=== PATIENT | female | born 1980 | race Caucasian/White ===

== ENCOUNTER → 2018-03-07 14:36 | Outpatient (REF) | payer OTHER, SELFPAY ==
[2018-03-07 18:43] LABS: Mean Corp. HGB Concentration 33.3 g/dL (32.0-36.0); Mean Corpuscular Hemoglobin 30.6 pg (27.0-33.0); Mean Corpuscular Volume 91.8 fL (80-95); Platelet Count 206 x1000/uL (130-400); RBC 4.25 m/cumm (4.00-5.20); RBC Distribution Width 12.2 % (11.7-14.6); White Blood Cell Count 7.81 k/cumm (4.4-10.8)
[2018-03-07 19:08] LABS: TSH (W/Ref FT4) 1.28 uIU/mL (0.358-3.74)
[2018-03-07 19:21] LABS: Vitamin D 25 Total 40.7 ng/ml (30-100)
[2018-03-09 11:27] LABS: IgA 197 mg/dL (85-499)
[2018-03-09 18:54] LABS: Tissue Transglutaminase Ab IgA <1.2 U/mL
== END ==
LOC: NCHCN 14:36
PROVIDERS: PCP Family Medicine; Visit Provider Family Medicine
DX: D64.9 Anemia, unspecified (principal); R21 Rash and other nonspecific skin eruption
CPT/HCPCS: 82306; 82784; 85027; 83516; 84443

== ENCOUNTER 2019-05-05 13:33 | Outpatient (CLI) | payer OTHER, SELFPAY ==
[2019-05-05 14:50] LABS: Abs Immature Grans 0.01 k/cumm (0.0-0.09); Absolute Basophil Count 0.03 k/cumm (0.0-0.2); Absolute Eosinophil Count 0.04 k/cumm (0.0-0.7); Absolute Lymphocyte Count 1.36 k/cumm (1.2-3.4); Absolute Monocyte Count 0.44 k/cumm (0.11-0.7); Absolute Neutrophil Count 5.11 k/cumm (1.2-6.7); Basophils % 0.4; Eosinophils % 0.6; HCT 38.2 % (36.0-46.0); HGB 12.8 g/dL (12.0-15.5); Immature Grans % 0.1; Lymphocytes % 19.5; Mean Corp. HGB Concentration 33.5 g/dL (32.0-36.0); Mean Corpuscular Hemoglobin 30.4 pg (27.0-33.0); Mean Corpuscular Volume 90.7 fL (80-95); Mean Platelet Volume 10.9 fL (8.0-11.0); Monocytes % 6.3; Neutrophils % 73.1; Platelet Count 186 x1000/uL (130-400); RBC 4.21 m/cumm (4.00-5.20); RBC Distribution Width 12.2 % (11.7-14.6); White Blood Cell Count 6.99 k/cumm (4.4-10.8)
--- NOTE | 2019-05-05 15:00 | DI.US_ITS ---
EXAM: US THYROID CLINICAL HISTORY: SUBCUTANEOUS MASS OF NECK R22.1. TECHNIQUE: Ultrasound performed using standard protocol. COMPARISON: US SOFT TISSUE HEAD OR NECK from 05/05/2019 FINDINGS: Thyroid ultrasounds performed according to the usual protocol. Right thyroid lobe measures 50 x 15 x 12 millimeters. Left thyroid lobe measures 43 x 12 x 16 millimeters. Thyroid parenchyma is heterog eneous and there are multiple nodules seen bilaterally. There is hyperemic 13 millimeter in diameter heterogeneous nodule of the upper pole of the left thyroid lobe, this is increased slightly since th e examination June 2016 when it measured 11 millimeters in greatest diameter. No other suspiciou s nodule seen although multiple cysts cysts are noted in the right thyroid lobe. Patient also had neck scanning for question palpable abnormality of the left cervical region, there i s visible lymph node at this site measuring about 15 millimeters in diameter with normal doreen anatom y. IMPRESSION: No gross interval change in dominant left upper lobe thyroid mass Palpable abnormality of the left lateral cervical region is consistent with a normal cervical lymph n ode.
--- NOTE | 2019-05-05 16:25 | DI.VRAD_ITS ---
PROCEDURE INFORMATION: Exam: US Soft Tissue Head and Neck, Soft Tissue Exam date and time: 05/05/2019 3:42 PM Clinical history: 38 years old, female; Patient HX: Left sided neck pain x 1 day. TECHNIQUE: Imaging protocol: Real-time ultrasound scan of the head and neck with image documentation. Exam focused on the soft tissue in the region of clinical concern. COMPARISON: US THYROID ULTRASOUND 07/10/2016 3:37 PM FINDINGS: Right thyroid lobe: Right lobe of the thyroid 5 x 1.5 x 1.24 cm Multiple nodules in the right lobe of the thyroid. All less than 1 cm in diameter Left thyroid lobe: Left lobe of the thyroid 4.3 x 1.25 1.6 cm Dominant nodule: Hyperemic nodule upper pole left thyroid is mostly solid with 1 cystic component. 1.3 x 7.2 x 10 mm. Isthmus: Isthmus 2.6 mm Lymph nodes: Lymph node in the area of the palpable abnormality measures 15 x 6 x 9 mm. Additional lymph nodes noted on the left. Soft tissues: Unremarkable. No fluid collections. IMPRESSION: 1. Dominant nodule: Hyperemic nodule upper pole left thyroid is mostly solid with 1 cystic component. 1.3 x 7.2 x 10 mm. 2. Lymph node in the area of the palpable abnormality measures 15 x 6 x 9 mm. Additional lymph nodes noted on the left. Dictated and Authenticated by: Tammy Edwards MD. Ordering:JIMMIE Richardson MD
[2019-05-05 16:59] LABS: FREE T4 1.13 ng/dL (0.76-1.46); TSH 1.18 uIU/mL (0.36-3.74)
== END 2019-05-05 13:53 ==
PROVIDERS: PCP Family Medicine; Visit Provider Family Medicine
DX: R22.1 Localized swelling, mass and lump, neck (principal); E04.1 Nontoxic single thyroid nodule; R59.0 Localized enlarged lymph nodes
CPT/HCPCS: 36415; 76536; 84439; 84443; 85025

== ENCOUNTER 2019-07-04 08:14 | Outpatient (CLI) | payer OTHER, SELFPAY ==
[2019-07-04 08:47] LABS: Absolute Basophil Count 0.02 k/cumm (0.0-0.2); Absolute Eosinophil Count 0.09 k/cumm (0.0-0.7); Absolute Lymphocyte Count 1.44 k/cumm (1.2-3.4); Absolute Monocyte Count 0.36 k/cumm (0.11-0.7); Absolute Neutrophil Count 2.48 k/cumm (1.2-6.7); Basophils % 0.5; Eosinophils % 2.1; HCT 39.9 % (36.0-46.0); HGB 13.2 g/dL (12.0-15.5); Lymphocytes % 32.8; Mean Corp. HGB Concentration 33.1 g/dL (32.0-36.0); Mean Corpuscular Hemoglobin 30.2 pg (27.0-33.0); Mean Corpuscular Volume 91.3 fL (80-95); Mean Platelet Volume 11.8 fL (8.0-11.0); Monocytes % 8.2; Neutrophils % 56.4; Platelet Count 182 x1000/uL (130-400); RBC 4.37 m/cumm (4.00-5.20); RBC Distribution Width 12.4 % (11.7-14.6); White Blood Cell Count 4.39 k/cumm (4.4-10.8)
[2019-07-04 11:29] LABS: Anion Gap 10.4 mmol/L (3-11); BUN 12 mg/dL (7-18); CO2 26.6 mmol/L (21.0-32.0); CREATININE 0.66 mg/dL (0.55-1.02); Calcium 8.7 mg/dL (8.5-10.1); Chloride 105 mmol/L (98-107); Glucose 75 mg/dL (74-106); Potassium 4.1 mmol/L (3.5-5.1); Sodium 142 mmol/L (136-145)
== END 2019-07-04 08:34 ==
PROVIDERS: PCP Family Medicine; Visit Provider Family Medicine
DX: R53.83 Other fatigue (principal)
CPT/HCPCS: 36415; 80048; 82533; 84443; 85025

== ENCOUNTER 2020-01-02 15:53 | Outpatient (REF) | payer OTHER, SELFPAY ==
[2020-01-04 10:20] LABS: COVID-19 RT-PCR UVMMC Result Negative (Negative)
== END 2020-01-02 16:13 ==
LOC: NCHCN 15:53
PROVIDERS: PCP Family Medicine; Visit Provider Nurse Practitioner Family
DX: R06.02 Shortness of breath (principal)
CPT/HCPCS: U0003

== ENCOUNTER 2020-01-04 01:32 | Outpatient (CLI) | payer OTHER, SELFPAY ==
--- NOTE | 2020-01-04 09:30 | DI.RAD_ITS ---
EXAM: XR CHEST 2V PA LATERAL CLINICAL HISTORY: SOB,R06.02 TECHNIQUE: 2D digital imaging was performed. COMPARISON: No exams were available for comparison FINDINGS: MEDIASTINUM: Normal. HEART: Normal. PULMONARY VASCULATURE: Normal. LUNGS: Clear. PLEURAL SPACE: No pleural effusion or pneumothorax. BONE:Normal. OTHER FINDINGS:Normal. IMPRESSION: No acute pulmonary findings. DATA REPOSITORY: RADIATION DOSE DELIVERED:
== END 2020-01-04 01:52 ==
PROVIDERS: PCP Family Medicine; Visit Provider Nurse Practitioner Family
DX: R06.02 Shortness of breath (principal)
CPT/HCPCS: 71046

== ENCOUNTER 2020-09-16 18:40 | Outpatient (REF) | payer OTHER, SELFPAY ==
[2020-09-16 21:36] LABS: HCT 41.3 % (36.0-46.0); HGB 13.7 g/dL (11.2-15.7); MCH 30.6 pg (27.0-33.0); MCHC 33.2 % (32.0-36.0); MCV 92.4 fL (80-95); MPV 11.9 fL (8.0-11.0); Platelet Count 187 10^3/uL (130-400); RBC 4.47 10^6/uL (3.93-5.22); RDW 11.4 % (11.7-14.6); WBC 9.17 10^3/uL (4.4-10.8)
[2020-09-16 21:55] LABS: Anion Gap 10.3 mmol/L (3-11); BUN 15 mg/dL (7-18); CO2 26.7 mmol/L (21.0-32.0); CREATININE 0.6 mg/dL (0.55-1.02); Calcium 8.7 mg/dL (8.5-10.1); Chloride 105 mmol/L (98-107); Glucose 82 mg/dL (74-106); Sodium 142 mmol/L (136-145); TSH (W/Ref FT4) 1.36 uIU/mL (0.36-3.74)
== END 2020-09-16 18:41 | disposition home or self-care (01) ==
LOC: NCHCN 18:40
PROVIDERS: PCP Family Medicine; Visit Provider Nurse Practitioner Family
DX: R00.2 Palpitations (principal)
CPT/HCPCS: 80048; 85027; 84443

== ENCOUNTER 2020-09-18 03:12 | Outpatient (RCR) | payer OTHER, SELFPAY ==
--- NOTE | 2020-09-18 14:15 | HOLTER_ITS ---
APPROVED REPORT Exam Type: HOLTER MONITOR APPLICATION Reason for Test: PALPITATIONS Patient Location: O Conclusion This is a 48-hour Holter monitor ordered for the indication of palpitations. The patient was in normal sinus rhythm for the majority of the recording with an average heart rate o f 71 bpm. Patient no episodes of SVT and rare PACs. The patient had one episode of NSVT that lasted 6 beats at a rate of 186 bpm. There were rare PVCs. There were no episodes of atrial fibrillation, no pauses greater than 3 seconds and no evidence of hi gh degree heart block. There were 3 patient diary events associated with sinus rhythm, a PAC, and a PVC.
== END 2020-09-22 23:59 | disposition home or self-care (01) ==
LOC: RT 03:12
PROVIDERS: PCP Family Medicine; Visit Provider Nurse Practitioner Family
DX: R00.2 Palpitations (principal)
CPT/HCPCS: 93225; 93226

== ENCOUNTER 2020-10-21 17:47 | Outpatient (REF) | payer OTHER, SELFPAY ==
--- NOTE | 2020-10-21 13:30 | PAPFT_PTH ---
PATIENT: Maris Owen [id number] AGE/SX: 40/F ROOM: RE10/21/[address]: Debra Rocha : 1980 BED: DIS: 10/21/2020 SPEC #: [id number] RECD: 10/21/20 18:11 STATUS: ALEXANDRA REMargarito #: [id number] KEZIA: 10/21/20 13:[address]: Debra Rocha DEPT: [facility] Cytology RECD BY: Flakita Gill Tissues: 1 - CX/ENDOCX FOR PAP SMEARS Procedures: PAP THIN PREP/UVM Screening HPV DNA PROBE Comments: [id number]
== END 2020-10-21 17:48 | disposition home or self-care (01) ==
LOC: NCHCN 17:47
PROVIDERS: PCP Family Medicine; Visit Provider Family Medicine
DX: Z00.00 Encounter for general adult medical examination without abnormal findings (principal); Z12.4 Encounter for screening for malignant neoplasm of cervix; Z11.51 Encounter for screening for human papillomavirus (HPV)
CPT/HCPCS: 88142; 87624

== ENCOUNTER 2020-10-29 00:47 | Outpatient (CLI) | payer OTHER, SELFPAY ==
--- NOTE | 2020-10-29 15:00 | ETT_ITS ---
APPROVED REPORT Exam: Exercise Treadmill Patient Location: Out-Patient Room/Bed: Stress Nurse: Ashley Felix RN Ordering Provider:PARISH VIGIL, Contact Number: [phone] BMI: 23.88 Baseline Rhythm: Sinus Rhythm Indications: DYSPNEA ON EXERTION, PALPITATIONS, CHEST TIGHTNESS. Medical History Medical History: None. Cardiac Medications: None. Allergies: No known drug allergies Cardiac Risk Factors: FHX of CAD Previous Cardiac Procedures: None. Pretest Chest Pain Characteristics: No chest pain Exercise History: Physically active Physical Disabilities: None. Lung Sounds: Clear to auscultation Heart Sounds: Regular Stress Test Details Test: Exercise stress testing was performed using a Marcel protocol. Rest Stress HR Resting HR Supine: 78 bpm Max Heart Rate (APMHR): 179 bpm Resting HR Standin bpm Target HR (85% APMHR): 152 bpm Max HR Achieved: 171 bpm % of APMHR: 95 Recovery HR: 94 bpm HR response to stress: Normal HR response to stress BP Resting BP Supine: 116/78 mmHg Resting BP Standin/80 mmHg Max BP: 160/72 mmHg Recovery BP: 120/76 mmHg BP response to stress: Normal blood pressure response to stress. ECG Resting ECG: Sinus Rhythm Ectopy: None. Comment: 1mm ST depression present in inferior leads Stress ECG: Sinus Tachycardia ST Change: Downsloping ST depression Lead(s): , aVF, V3-V6 Stage: [address] Deviation: 2.5 mm Arrhythmia: None Recovery ECG: Sinus Rhythm Recovery ST Change: Baseline Downsloping/Horizontal ST depression Lead(s): II, III, aVF Recovery ST Deviation: 1 mm Recovery Arrhythmia: None Clinical Reason for Termination: Target HR Achieved Stress Symptoms: None. Exercise duration: 9 min11 sec Highest Stage Reached: Stage 4: 4.2 mph at 16% grade. Exercise capacity: 10.44 METs Matson Treadmill Score: 3 Rate Pressure Product: [id number] Stress ECG Conclusion 1. The patient exercised for 9 minutes (10 METS). The patient no symptoms suggestive of ischemia. 2. The patient's blood pressure and heart rate augmented appropriately with exertion. 3. Baseline voltage criteria for LVH and minimal ST depressions make the interpretation of this study difficult. 4. The patient developed worsening horizontal and downsloping ST depressions both inferiorly and late rally. 5. Would recommend imaging study if concern for ischemia remains high. Consider coronary CT scan. Matson Treadmill Score is 3 which is Moderate risk. Stress Test Summary STAGE Time (mins) Speed (mph) Grade (%) HR BP SYMPTOMS METS Supine 78 116/78 Standing 101 122/80 1 3 1.7 10 133 126/78 4.6 2 6 2.5 12 152 144/72 7 3 9 3.4 14 169 156/70 10.2 1 min recovery 132 160/72 3 min recovery 113 140/74 6 min recovery 94 120/76
== END 2020-10-29 01:07 ==
PROVIDERS: PCP Family Medicine; Visit Provider Family Medicine
DX: R06.09 Other forms of dyspnea (principal); R00.2 Palpitations; R07.89 Other chest pain
CPT/HCPCS: 93017

== ENCOUNTER 2021-01-13 00:46 | Outpatient (CLI) | payer OTHER, SELFPAY ==
--- NOTE | 2021-01-13 14:03 | DI.US_ITS ---
APPROVED REPORT EXAM: Comprehensive 2D, Doppler, and color-flow Echocardiogram Patient Location: Out-Patient Hydraulic Miner: Edna Juarez RDCS (AE) Indications: Dyspnea on exertion Other Information Study Quality: Adequate Conclusion Normal left ventricular wall thickness and chamber size. Estimated ejection fraction is 60 to 65%. There are no segmental wall motion abnormalities Normal right ventricular size and systolic function Both atria are normal in size There is no significant valvular disease Wall motion Left Ventricle The left ventricle is normal size. The left ventricular systolic function is normal. The left ventric ular ejection fraction is within the normal range. There is normal left ventricular wall thickness. T here is normal LV segmental wall motion. There is no ventricular septal defect visualized. LVEF is 61 %. Right Ventricle The right ventricle is normal size. The right ventricular systolic function is normal. The RVSP is 26 .9 mmHg. Atria The left atrium size is normal. The right atrium size is normal. The interatrial septum is intact wit h no evidence for an atrial septal defect. Aortic Valve The aortic valve is normal in structure. Aortic valve is trileaflet. There is no aortic valvular sten osis. No aortic regurgitation is present. Mitral Valve The mitral valve is normal in structure. No evidence of mitral valve stenosis. Trace mitral regurgita tion. Tricuspid Valve The tricuspid valve is normal in structure. There is no tricuspid valve stenosis. Trace tricuspid reg urgitation. Pulmonic Valve The pulmonary valve is normal in structure. There is no pulmonic valvular stenosis. There is no pulmo amelia valvular regurgitation. Great Vessels The aortic root is normal in size. The ascending aorta is normal in size. Aortic arch is normal in ca liber. IVC is normal in size and collapses >50% with inspiration. Pericardium There is no pericardial effusion. 2D Dimensions IVSD d PLAX 0.84 cm F: 0.6-1.0 LV Vol A2C d MOD 93.6 mL LVPW d PLAX 0.85 cm F: 0.6 - 1.0 LV Vol A4C d MOD 91.9 mL LVID d PLAX 4.93 cm F: 3.8 - 5.2 LA vol/ BSA A2C s A-L 12.6 mL/m2 LVDs 3.15 cm F: 2.2 - 3.5 LA vol/ BSA A4C s A-L 25.9 mL/m2 Ao Root d 2.74 cm F: 2.7 - 3.3 LA Vol/ BSA Biplane s A-L 20.4 mL/m2 RA Area A4C 13.93 cm2 LA Area A4C s MOD 16.88 cm2 RA Vol/ BSA A4C s A-L 19.0 mL/m2 LA Area A2C s MOD 10.47 cm2 Ao Asc Diam d 2.99 cm F: 2.3 - 3.1 LV EF A4C MOD 61.2 % LV EF Teichholz 64.3 % LV EF A2C MOD 60.1 % LVEF (Riley's) 60.54 % F: 54 - 74 LV EF Biplane MOD 60.5 % LV Volume 76.05 mL F: 46 - 106 SV 58.83 mL LV Volume Index 42.96 mL/m2 F: 29 - 61 SV Index 33.24 mL/m2 LV Vol Biplane MOD 97.2 mL FS 35.15 % M-Mode TAPSE 2.80 cm (M/F) >1.7 LV Diastology MV E' medial 0.166 (>0.07 m/s) E/A Ratio 1.5 LV E/e MED 5.85 (<14) MV E Vmax 0.98 (0.4-1.3 m/s) MV E' lateral 0.159 (>0.1 m/s) MV A Vmax 0.65 (0.4-1.3 m/s) LV E/e LAT 6.10 (<14) MV E/A Ratio 1.48 MV E/E' medial 5.87 MV E/E' lateral 6.14 Aortic Valve LVOT Area 2.80 cm2 AoV Area Vmax 2.32 cm2 LVOT Vmax 1.11 m/s AoV Area/ BSA (Vmax) 1.31 cm2/m2 LVOT Mean Simón. 0.68 m/s KVNG Mean Simón. 1.93 cm2 LVOT Peak Grad 4.9 mmHg KVNG Mean Simón. Index 1.09 cm2/m2 LVOT Mean Grad 2.3 mmHg LVOT VTI 0.254 m LVOT Diam s 1.85 cm AoV Vmax 1.34 m/s Velocity Ratio 0.82 AoV Mean Simón. 0.99 m/s AoV Peak Grad 7.1 mmHg LVOT SV 70.99 mL AoV Mean Grad 4.2 mmHg AoV VTI 0.293 m AoV Area VTI 2.42 cm2 AoV Area/ BSA (VTI) 1.37 cm/m2 Mitral Valve MV DT 207 (160-240 msec) MV PHT 60 msec MV Area PHT 3.66 cm2 MV VTI 0.300 m MV Area VTI 2.36 (4.0-6.0 cm2) Pulmonary Valve PV Vmax 1.19 (0.5-1.5 m/s) RVOT Peak Gr. 2.86 mmHg PV Peak Grad 5.7 mmHg RVOT Mean Gr. 1.35 mmHg PV Mean Grad 2.8 mmHg RVOT VTI 0.163 m PV VTI 0.232 m RVOT Vmax 0.85 m/s Tricuspid Valve TR Peak Grad 23.9 mmHg TR Vmax 2.44 m/s RA Pressure 3.00 mmHg RVSP (TR) 26.9 mmHg
== END 2021-01-13 01:06 ==
PROVIDERS: PCP Family Medicine; Visit Provider Internal Medicine Cardiovascular Disease
DX: R06.00 Dyspnea, unspecified (principal)
CPT/HCPCS: 93306

== ENCOUNTER 2021-02-18 11:54 | Outpatient (REF) | payer OTHER, SELFPAY ==
--- NOTE | 2021-02-18 15:13 | SKI_PTH ---
PATIENT: Maris Owen LOC: [facility] U#:[id number] AGE/SX: 40/F ROOM: RE02/18/[address]: Emeterio Ricks : 1980 BED: DIS: 02/18/2021 SPEC #: [id number] RECD: 02/19/21 12:49 STATUS: ALEXANDRA REMargarito #: [id number] KEZIA: 02/18/21 15:[address]: Emeterio Ricks DEPT: Surgical Specimen RECD BY: Flakita Gill ENTERED: 02/19/21 12:50 SP TYPE: VERO PIMENTEL DR: Debra Rocha Tissues: 1 - SKIN BIOPSY(SHAVE/PUNCH) Procedures: SKIN LEVEL 4 SPECIAL STAIN 1 Comments: [id number]
== END 2021-02-18 11:55 | disposition home or self-care (01) ==
LOC: NCHCN 11:54
PROVIDERS: PCP Family Medicine; Visit Provider Nurse Practitioner Family
DX: L30.8 Other specified dermatitis (principal)
CPT/HCPCS: 88305; 88312

== ENCOUNTER 2021-04-21 12:11 | Emergency (ER) | payer OTHER, SELFPAY ==
--- NOTE | 2021-04-21 12:00 | RT.EKG_ITS ---
APPROVED REPORT Exam: Resting ECG Reason for Exam: stroke symptoms Patient Location: E HR:62 bpm ECG Measurements Heart Rate 62 AXIS TN 106 P 52 QRSd 90 QRS 66 QT 429 T 31 QTc 437 Conclusion Sinus rhythm...normal P axis, V-rate 60- [address] depression, inferior leads...ST <-0.07mV, II III aVF EKG shows sinus rhythm at 62, normal axis, no STEMI, nondiagnostic EKG
[2021-04-21 12:15] VITALS: BP 144/105; PULSE 71; RESP 15; TEMP 36.3; O2SAT 96
--- OUTSIDE RECORDS SUMMARY | 2021-04-21 12:17 | XMS_ITS | Continuity of Care Document ---
:1980 Author Organization [facility] Care Team Providers Name Role Phone [facility] Unavailable Unavailable Social History Combined list of available smoking, tobacco, and other social history from [facility]. Social History Response Date Comment Source Type This section is an [facility] empty social history section.
--- NOTE | 2021-04-21 12:28 | DI.CT_ITS ---
Exam(s) CT BRAIN NECK CTA EXAM: CT BRAIN NECK CTA CLINICAL HISTORY: difficulty word finding, headache. TECHNIQUE: Imaging Protocol: Axial CT angiography was performed with multi-slice acquisition and mu lti-planar and/or 3D reconstructions. CONTRAST MATERIAL: Intravenous: Omnipaque 350 Contrast volume:structured data in ml COMPARISON: No exams were available for comparison FINDINGS: CTA Neck W: Aortic arch anatomy: The aortic arch anatomy is conventional. Anterior circulation: No significant stenosis at the origin of the common carotid arteries and these vessels ascend with no rmal luminal diameters. There is no evidence of significant stenosis at the carotid bifurcations and proximal internal carotid arteries and both ICAs are patent in the upper neck-skull base. Posterior circulation: Both vertebral arteries genetic conventional fashion off of the subclavian arteries. There is no darnell nosis at the origin of the vertebral arteries nor in the subclavian arteries. Both vertebral arteries ascend in the foramen transverse area with normal and equal luminal diameters . No intraluminal thrombus nor dissection evident in these vessels and both vertebral arteries contr ibute to the formation of the basilar artery at the skull base. CTA Brain W: Anterior circulation: Both internal carotid arteries are patent in the skull base-carotid canals as well as within the cave rnous sinuses. Supraclinoid aspects of these vessels are patent. Middle cerebral arteries are paten t. Left A1 segment is patent. Right A1 segment is thin, possibly developmental. Both anterior cere bral arteries are patent. There is no evidence of aneurysm at the level of the anterior communicatin g artery. Posterior circulation: Basilar artery ascends in the midline. Distally basilar artery gives off patent superior cerebellar arteries and above this level terminates as patent posterior cerebral arteries. On the right side th ere is a posterior communicating artery which contributes to the ipsilateral posterior cerebral arter y. There is no evidence of aneurysm of the tip of the basilar artery. CT BRAIN: There is no evidence of intracranial hemorrhage, mass effect, or shift of midline structures. There are no extra-axial fluid collections. Ventricles are not enlarged or shifted. There are no ring enh ancing lesions in the brain and no abnormal meningeal enhancement. IMPRESSION: 1. Patent carotid and vertebral arteries in the neck. No significant stenosis. No dissection 2. Patent intracranial arteries as described above. 3. No ring enhancing lesions in the brain nor abnormal meningeal enhancement. RADIATION DOSE DELIVERED: 2,024.84mGy.cm Total DLP DATA REPOSITORY: All CT scans at this facility are submitted to the National Radiology Data Registry (NRDR) Dose Index Registry (DIR) with the [employer] (A[employer]). RADIATION OPTIMIZATION: All CT scans at this facility use at least one of these dose optimization te chniques: automated exposure control; mA and/or kV adjustment per patient size (includes targeted exa ms where dose is matched to clinical indication); or iterative reconstruction.
[2021-04-21 12:44] LABS: Abs Immature Grans 0.01 10^3/uL (0.0-0.06); Absolute Basophil Count 0.03 10^3/uL (0.0-0.2); Absolute Eosinophil Count 0.15 10^3/uL (0.0-0.7); Absolute Lymphocyte Count 1.97 10^3/uL (1.2-3.4); Absolute Monocyte Count 0.43 10^3/uL (0.1-0.8); Absolute Neutrophil Count 4.17 10^3/uL (1.2-6.7); Basophils % 0.4; Eosinophils % 2.2; HGB 12.3 g/dL (11.2-15.7); Immature Grans % 0.1; Lymphocytes % 29.1; MCH 29.6 pg (27.0-33.0); MCHC 32.4 % (32.0-36.0); MCV 91.6 fL (80-95); MPV 11.4 fL (8.0-11.0); Monocytes % 6.4; Neutrophils % 61.8; Nucleated RBC 0 %; Platelet Count 176 10^3/uL (130-400); RBC 4.15 10^6/uL (3.93-5.22); RDW 11.8 % (11.7-14.6); RDW-SD 39.4 fL; WBC 6.76 10^3/uL (4.4-10.8)
--- NOTE | 2021-04-21 13:00 | DI.MRI_ITS ---
Exam(s) MR BRAIN WO EXAM: MR BRAIN WO CLINICAL HISTORY: headache, word finding difficulty TECHNIQUE: Multiplanar multisequence MRI of the brain was performed. COMPARISON: No exams were available for comparison FINDINGS: CEREBRAL PARENCHYMA: There is no evidence of intracranial hemorrhage, mass effect, or shift of midline structures. There are no extra-axial fluid collections. Ventricles are not enlarged or shifted. There is no significant focal signal abnormality in the cerebellar hemispheres nor within the malcolm, m idbrain, and thalami. There is no abnormal signal abnormality in the periventricular white matter. There is no significant focal signal abnormality evident on diffusion imaging to suggest acute ischem ic event. PITUITARY GLAND: No mass nor parasellar abnormality. No obvious abnormality in the cavernous sinuses. FLOW VOIDS: The expected flow void are noted. No evidence of obvious aneurysm nor obvious vascular ma lformation. PARANASAL SINUSES: Mild mucosal thickening noted in the left frontal sinus, not associated with fluid therein. Other paranasal sinuses appear unremarkable and there is no signal abnormality in the mast oid air cells. ORBITS: No obvious findings. IMPRESSION: No acute intracranial findings on this noninfused MRI scan of the brain. Report called by myself to ER physician. DATA REPOSITORY:
[2021-04-21 13:05] LABS: ALT 32 U/L (14-59); AST 22 U/L (15-37); Albumin 4.1 g/dL (3.4-5.0); Alkaline Phosphatase 45 U/L (46-116); BUN 14 mg/dL (7-18); Bilirubin, Total 0.5 mg/dL (0.2-1.0); CREATININE 0.7 mg/dL (0.55-1.02); Calcium 8.7 mg/dL (8.5-10.1); Chloride 104 mmol/L (98-107); Glucose 97 mg/dL (74-106); Potassium 3.5 mmol/L (3.5-5.1); Sodium 141 mmol/L (136-145); Total Protein 7.3 g/dL (6.4-8.2)
[2021-04-21 13:06] LABS: HCG Quant, Pregnancy < 1 mIU/mL (1-3)
[2021-04-21 13:08] LABS: INR 1.1 (0.9-1.1); PTT Activated 22.5 sec (21.0-27.5); Prothrombin Time 10.8 sec (9.3-11.0)
--- NOTE | 2021-04-21 14:08 | ED.GENADUL_ITS ---
Discharge Plan Disposition Patient Disposition: HOME Condition: Stable Discharge Details Clinical Impression: Headache Primary Care Provider: Debra Rocha ED Provider: Bonnie Quiles Home Meds and New Rx's Prescriptions: New ondansetron 4 mg tablet,disintegrating 4 mg PO TID PRN (Reason: nausea and vomiting) Qty: 8 RF: 0 Continued flaxseed oil 1,000 mg capsule 1,000 mg PO DAILY RF: 0 Blood Builder 10 mg PO BID 30 Days RF: 4 No Action calcium carb-D3-mag [id number] [phone] wc-[id number]-mg tablet 1 tab PO DAILY RF: 0 Discharge Instructions Instructions: Migraine Headache (ED), General Headache (ED) Additional Instructions: Please return immediately to the emergency department if you develop any new or worsening symptoms, if your condition does not improve as expected, or if you become otherwise concerned. It is extremely important that you call soon as possible to make an appointment to be seen in follow-up for this visit by your primary care doctor and neurologist as we discussed. Referrals: Debra Rocha MD [Primary Care Provider] - Sondra Fraga MD [ [facility] STAFF PHYSICIAN] - Discharge Data Discharge Date/Time-TO BE ENTERED AT DEPARTURE: 04/21/21 14:44 Medical Decision Making Maris Owen is a 40 y/o woman without reported h/o major medical problems presenting to the emergency department with changes in vision, headache, difficulty with speaking, vomiting, now with symptoms resolved except for headache. On exam Pt is well and non-toxic appearing. Benign neuro exam. Concern for likely new onset migraine vs CVA vs other. Exam/hx at this time not c/w central venous thrombosis, subarachnoid hemorrhage, sepsis, meningitis, other infectious etiology of symptoms. EKG obtained, NSR. Plan for IV placement, screening labs, CTA head/neck. Will monitor and reassess. Labs reviewed, no leukocystosis, Cr 0.7. CTA head/neck negative. I discussed Pt presentation with Dr. Fraga of neurology who agreed with likely migraine as diagnosis, recommended MRI brain without contrast, if negative outpt f/u. MRI brain negative. Pt reports mild headache, no other symptoms. I offered Pt treatment for headache/migraine, Pt states that she feels overall and would prefer to go home at this time and take OTC meds. I had a lengthy discussion with Patient regarding return to emergency department precautions, home care, and importance of outpatient follow-up. Pt verbalizes understanding of the plan and is amenable. Patient discharged to home with clear plan for outpatient follow-up. All questions were answered. Disposition decision was made weighing the risks and benefits of hospitalization versus outpatient treatment, the risk for further decompensation, and the patient's wishes. Medical Records Medical records reviewed: Yes I reviewed the patient's medical records. Imaging Data Radiologic Study: Attestation: I personally reviewed and interpreted this imaging study as follows: Radiologist's impression: EXAM: CT BRAIN NECK CTA CLINICAL HISTORY: difficulty word finding, headache. TECHNIQUE: Imaging Protocol: Axial CT angiography was performed with multi- slice acquisition and multi-planar and/or 3D reconstructions. CONTRAST MATERIAL: Intravenous: Omnipaque 350 Contrast volume:structured data in ml COMPARISON: No exams were available for comparison FINDINGS: CTA Neck W: Aortic arch anatomy: The aortic arch anatomy is conventional. Anterior circulation: No significant stenosis at the origin of the common carotid arteries and these vessels ascend with normal luminal diameters. There is no evidence of significant stenosis at the carotid bifurcations and proximal internal carotid arteries and both ICAs are patent in the upper neck-skull base. Posterior circulation: Both vertebral arteries genetic conventional fashion off of the subclavian arteries. There is no stenosis at the origin of the vertebral arteries nor in the subclavian arteries. Both vertebral arteries ascend in the foramen transverse area with normal and equal luminal diameters. No intraluminal thrombus nor dissection evident in these vessels and both vertebral arteries contribute to the formation of the basilar artery at the skull base. CTA Brain W: Anterior circulation: Both internal carotid arteries are patent in the skull base-carotid canals as well as within the cavernous sinuses. Supraclinoid aspects of these vessels are patent. Middle cerebral arteries are patent. Left A1 segment is patent. Right A1 segment is thin, possibly developmental. Both anterior cerebral arteries are patent. There is no evidence of aneurysm at the level of the anterior communicating artery. Posterior circulation: Basilar artery ascends in the midline. Distally basilar artery gives off patent superior cerebellar arteries and above this level terminates as patent posterior cerebral arteries. On the right side there is a posterior communicating artery which contributes to the ipsilateral posterior cerebral artery. There is no evidence of aneurysm of the tip of the basilar artery. CT BRAIN: There is no evidence of intracranial hemorrhage, mass effect, or shift of mi dline structures. There are no extra-axial fluid collections. Ventricles are not enlarged or shifted. There are no ring enhancing lesions in the brain and no abnormal meningeal enhancement. IMPRESSION: 1. Patent carotid and vertebral arteries in the neck. No significant stenosis. No dissection 2. Patent intracranial arteries as described above. 3. No ring enhancing lesions in the brain nor abnormal meningeal enhancement. EXAM: MR BRAIN WO CLINICAL HISTORY: headache, word finding difficulty TECHNIQUE: Multiplanar multisequence MRI of the brain was performed. COMPARISON: No exams were available for comparison FINDINGS: CEREBRAL PARENCHYMA: There is no evidence of intracranial hemorrhage, mass effect, or shift of midline structures. There are no extra-axial fluid collections. Ventricles are not enlarged or shifted. There is no significant focal signal abnormality in the cerebellar hemispheres nor within the malcolm, midbrain, and thalami. There is no abnormal signal abnormality in the periventricular white matter. There is no significant focal signal abnormality evident on diffusion imaging to suggest acute ischemic event. PITUITARY GLAND: No mass nor parasellar abnormality. No obvious abnormality in the cavernous sinuses. FLOW VOIDS: The expected flow void are noted. No evidence of obvious aneurysm nor obvious vascular malformation. PARANASAL SINUSES: Mild mucosal thickening noted in the left frontal sinus, not associated with fluid therein. Other paranasal sinuses appear unremarkable and there is no signal abnormality in the mastoid air cells. ORBITS: No obvious findings. IMPRESSION: No acute intracranial findings on this noninfused MRI scan of the brain. Lab Data Lab results reviewed: Yes I reviewed the patient's lab results. Labs: Laboratory Tests Range/Units 04/21/21 04/21/21 04/21/21 12:33 12:33 12:33 WBC (4.4-10.8) 10^3/uL 6.76 RBC (3.93-5.22) 10^6/uL 4.15 Hgb (11.2-15.7) g/dL 12.3 Hct (36.0-46.0) % 38.0 MCV (80-95) fL 91.6 MCH (27.0-33.0) pg 29.6 MCHC (32.0-36.0) % 32.4 RDW (11.7-14.6) % 11.8 Plt Count (130-400) 10^3/uL 176 MPV (8.0-11.0) fL 11.4 H Immature Gran % 0.1 Neutrophils % 61.8 Lymphocytes % 29.1 Monocytes % 6.4 Eosinophils % 2.2 Basophils % 0.4 Nucleated RBC % % 0 Absolute Neutrophils (1.2-6.7) 10^3/uL 4.17 Absolute Lymphocytes (1.2-3.4) 10^3/uL 1.97 Absolute Monocytes (0.1-0.8) 10^3/uL 0.43 Absolute Eosinophils (0.0-0.7) 10^3/uL 0.15 Absolute Basophils (0.0-0.2) 10^3/uL 0.03 PT (9.3-11.0) sec 10.8 INR (0.9-1.1) 1.1 APTT (21.0-27.5) sec 22.5 Sodium (136-145) mmol/L 141 Potassium (3.5-5.1) mmol/L 3.5 Chloride (98-107) mmol/L 104 Carbon Dioxide (21.0-32.0) mmol/L 27.0 Anion Gap (3-11) mmol/L 10.0 BUN (7-18) mg/dL 14 Creatinine (0.55-1.02) mg/dL 0.7 Estimated GFR/1.73 m2 (mL/min/1.73m2) >= 60.00 Glucose (74-106) mg/dL 97 Calcium (8.5-10.1) mg/dL 8.7 Total Bilirubin (0.2-1.0) mg/dL 0.5 AST (15-37) U/L 22 ALT (14-59) U/L 32 Alkaline Phosphatase (46-116) U/L 45 L Total Protein (6.4-8.2) g/dL 7.3 Albumin (3.4-5.0) g/dL 4.1 Beta HCG, Quant (1-3) mIU/mL < 1 L ECG Data Attestation: I personally reviewed and interpreted this ECG (s) as follows: Interpretation: EKG shows sinus rhythm at 62, normal axis, no STEMI, nondiagnostic EKG HPI General Mode of arrival: ambulatory . Date/Time Provider Initiated Documentation: 04/21/21 12:17 . Limitations to Documentation: no limitations . Information obtained by: patient, RN notes reviewed and old records reviewed . HPI Narrative: Maris Owen is a 40 y/o woman with no reported major medical problems presenting to the emergency department with chief complaint difficulty speaking. Pt reports that she was reading when she developed wavy vision in bother eyes, which she has never had before. This was approximately 2 hours prior to presentation. She reports that she then gradually a left-sided headache and nausea. She states that she was reading to her children when she felt that she had to struggle to make the words come out correctly. Pt reports that she was able to read and say the words, but that she had to struggle to do so. Pt reports that she then had an episode of vomiting and some numbness in her right hand. Pt reports that her symptoms resolved after 20 minutes or so except for the headache. Headache persists now, she reports it is mild to moderate and not the worst headache of her life. She denies any other pain, fevers, SOB, cough, other numbness, weakness, rash, diarrhea. Was previously well prior to onset of vision changes this morning. No vision changes at this time. Has been eating and drinking as usual. Never had similar symptoms in the past. No trauma. No h/o migraine or CVA. She drinks etoh occasionally, denies tobacco/nicotine or recreational drug use. Related Data Home Medications Medication Instructions Recorded Confirmed flaxseed oil 1,000 mg capsule 1,000 mg PO DAILY 11/15/20 04/24/21 ondansetron 4 mg PO TID PRN #8 tab 04/21/21 04/24/21 calcium carb-vit [id number] 1 tab PO DAILY 04/24/21 04/24/21 333 mg-200 unit-133 mg-5 mg tablet Previous Rx's Medication Instructions Recorded ondansetron 4 mg PO TID PRN #8 tab 04/21/21 Allergies Allergy/AdvReac Type Severity Reaction Status Date / Time No Known Allergies Allergy Unverified 04/24/21 12:31 General Stated Complaint: CVA/TIA SHERWIN: 2 Review of Systems Narrative: Constitutional: denies fevers Eyes: denies eye pain, reports vision changes as per HPI now resolved ENT: denies ear pain, dental pain, sore throat Cardiovascular: denies chest pain, edema Respiratory: denies SOB, cough GI: denies abdominal pain, vomiting, diarrhea : denies flank pain MSK: denies back pain, neck pain, arthralgias, myalgias Skin: denies rash Neuro: denies weakness, reports numbness in her right hand as per HPI now resolved, reports headache PFSH Medical History Dyspnea on exertion Migraine headache with aura Family History Mother Mental disorder chemical imbalance Father Hyperlipidemia Sister No problems noted. Brother No problems noted. Brother No problems noted. Brother No problems noted. Social History Smoking/Tobacco Use Status: Never Smoking risk assessment performed?: Yes Alcohol Intake: current Alcohol Intake frequency: a few times a month Alcohol type: other Drug use: Never What type of physical activity do you participate in: walking Duration: 60-90 minutes/day Frequency: daily Do you feel safe at home: Yes Do you feel safe in your relationship?: Yes Exam Narrative Exam Narrative: Constitutional: well and [id number], pleasant, conversing normally HENT: head atraumatic/normocephalic/normal inspection, mucous membranes moist Eyes: conjunctiva normal, sclera normal, pupils 3mm b/l ERRLA, EOMI without nystagmus Neck: no stridor, normal ROM, trachea midline, supple Resp: normal work of breathing, speaking in full sentences Cardio: normal rate, normal rhythm Skin: warm, dry, normal color, no rash Neuro: alert, not altered, special delivery carrier 2-12 intact, motor 5/5 throughout, normal tone Ext: no edema, no posterior calf TTP Psych: normal mood, normal affect, normal behavior Course Vital Signs Vital signs: Vital Signs Temperature 36.3 C L 04/21/21 12:15 Pulse 71 04/21/21 12:15 Respiratory Rate 15 04/21/21 12:15 Blood Pressure 144/105 H 04/21/21 12:15 Pulse Oximetry 96 04/21/21 12:15 Temperature 36.3 C L 04/21/21 12:15 Temperature Source Skin 04/21/21 12:15 Pulse 71 04/21/21 12:15 Respiratory Rate 15 04/21/21 12:15 Respiratory Effort Non-Labored 04/21/21 13:34 Respiratory Depth Normal 04/21/21 13:34 Respiratory Pattern Normal 04/21/21 13:34 Blood Pressure 144/105 H 04/21/21 12:15 Pulse Oximetry 96 04/21/21 12:15 Oxygen Delivery Method Room Air 04/21/21 12:15 Oxygen Flow Rate 0 04/21/21 12:15 Pain Level 3 04/21/21 12:15 Lab/Test Results Lab/Test Results: Laboratory Tests Range/Units 04/21/21 04/21/21 04/21/21 12:33 12:33 12:33 WBC (4.4-10.8) 10^3/uL 6.76 RBC (3.93-5.22) 10^6/uL 4.15 Hgb (11.2-15.7) g/dL 12.3 Hct (36.0-46.0) % 38.0 MCV (80-95) fL 91.6 MCH (27.0-33.0) pg 29.6 MCHC (32.0-36.0) % 32.4 RDW (11.7-14.6) % 11.8 Plt Count (130-400) 10^3/uL 176 MPV (8.0-11.0) fL 11.4 H Immature Gran % 0.1 Neutrophils % 61.8 Lymphocytes % 29.1 Monocytes % 6.4 Eosinophils % 2.2 Basophils % 0.4 Nucleated RBC % % 0 Absolute Neutrophils (1.2-6.7) 10^3/uL 4.17 Absolute Lymphocytes (1.2-3.4) 10^3/uL 1.97 Absolute Monocytes (0.1-0.8) 10^3/uL 0.43 Absolute Eosinophils (0.0-0.7) 10^3/uL 0.15 Absolute Basophils (0.0-0.2) 10^3/uL 0.03 PT (9.3-11.0) sec 10.8 INR (0.9-1.1) 1.1 APTT (21.0-27.5) sec 22.5 Sodium (136-145) mmol/L 141 Potassium (3.5-5.1) mmol/L 3.5 Chloride (98-107) mmol/L 104 Carbon Dioxide (21.0-32.0) mmol/L 27.0 Anion Gap (3-11) mmol/L 10.0 BUN (7-18) mg/dL 14 Creatinine (0.55-1.02) mg/dL 0.7 Estimated GFR/1.73 m2 (mL/min/1.73m2) >= 60.00 Glucose (74-106) mg/dL 97 Calcium (8.5-10.1) mg/dL 8.7 Total Bilirubin (0.2-1.0) mg/dL 0.5 AST (15-37) U/L 22 ALT (14-59) U/L 32 Alkaline Phosphatase (46-116) U/L 45 L Total Protein (6.4-8.2) g/dL 7.3 Albumin (3.4-5.0) g/dL 4.1 Beta HCG, Quant (1-3) mIU/mL < 1 L
[2021-04-21 14:43] VITALS: BP 124/83; PULSE 55; RESP 19; TEMP 36.8; O2SAT 100
--- NOTE | 2021-04-21 15:27 | NUR.NOTE ---
Nursing Note: Referral faxed to [facility] Neurology for follow up in 1 to 2 weeks for new migraine. Michelle Lopez
== END 2021-04-21 14:44 | disposition home or self-care (01) ==
PROVIDERS: Emergency Provider Student in an Organized Health Care Education/Training Program; PCP Family Medicine
DX: R51.9 Headache, unspecified (principal); G43.109 Migraine with aura, not intractable, without status migrainosus; R20.2 Paresthesia of skin; R11.2 Nausea with vomiting, unspecified
CPT/HCPCS: 36415; 36416; 70496; 70498; 80053; 82962; 93005; 99285; 70551; 84702; 85025; 85610; 85730; 93010; 99284

== ENCOUNTER 2022-05-25 19:34 | Outpatient (REF) | payer OTHER, SELFPAY | END 2022-05-25 19:35 | disposition home or self-care (01) | LOC: LBN 19:34 | PROVIDERS: PCP Family Medicine; Visit Provider Nurse Practitioner Family | DX: L98.8 Other specified disorders of the skin and subcutaneous tissue (principal) | CPT/HCPCS: 87070; 87205 ==

== ENCOUNTER 2023-05-20 21:48 | Outpatient (REF) | payer OTHER, SELFPAY ==
[2023-05-20 21:46] LABS: Source Nasal/Nares
[2023-05-20 22:43] LABS: COVID-19 PCR Negative (Negative)
== END 2023-05-20 21:49 | disposition home or self-care (01) ==
LOC: LBN 21:48
PROVIDERS: PCP Family Medicine; Visit Provider Physician Assistant Medical
DX: Z11.52 Encounter for screening for COVID-19 (principal); J02.9 Acute pharyngitis, unspecified
CPT/HCPCS: 87635; 87070

== ENCOUNTER 2023-07-06 17:00 | Emergency (ER) | payer OTHER, SELFPAY ==
[2023-07-06 17:08] VITALS: BP 172/89; PULSE 73; RESP 18; TEMP 36.2; O2SAT 100
--- NOTE | 2023-07-06 17:24 | ED.GENADUL_ITS ---
Discharge Plan Disposition Patient Disposition: Home Condition: Stable Discharge Details Clinical Impression: Herpes zoster Primary Care Provider: Debra Rocha ED Provider: Justice Gallo Home Meds and New Rx's Prescriptions: New valacyclovir 1 gram tablet 1,000 mg PO Q8H 10 Days Qty: 30 0RF prednisone 20 mg tablet 60 mg PO DAILY 5 Days Qty: 15 0RF No Action calcium carb-D3-mag [id number] xf-uhis-ff-mg tablet 1 tab PO DAILY Rx Instructions: administer with a meal Discharge Instructions Instructions: Prednisone (By mouth), Valacyclovir (By mouth), Shingles (ED) Additional Instructions: You were seen in the emergency department for your severe ear and facial pain without facial paralysis, you developed a vesicular rash that is concerning for shingles, shingles can be dangerous in this distribution. Your labs are unremarkable and your CT orbits negative for any orbital cellulitis, you have no tenderness to the parietal area of your scalp indicating this is unlikely temporal arteritis. We discussed risk factors of zoster in this area which is called [place] Rodgers syndrome and opted to treat empirically until your wound culture can come back, if your wound culture is positive for staph infection I think this is less likely to be Gus Rodgers and you may pursue antibiotic prescription at that time. I have sent valacyclovir and prednisone to [facility] down the [place] and we started you on oral medications this evening. Please return for any visual changes or any signs of systemic illness like disseminated rash, severe body aches, vertigo or nausea and vomiting. Referrals: Debra Rocha MD [Primary Care Provider] - Medical Decision Making This dictation utilizes [id number] dictation software and may contain unedited grammatical errors. 42 y/o F presents to ED today with a chief complaint of severe R facial/eye/ear pain traveling back to base of her skull developing over the weekend, now has a vesicular rash above her R eye. Onset and characteristics include started as painful headaches, now sharp stabbing burning pain around the R eye, denies facial paralysis, denies tinnitus, denies tenderness with light-touch to parietal area. Patients' medical history: migraine headache with aura. Family and social history: noncontributory. Pertinent exam findings / vital signs include no vesicular lesions on R TM, no erythema to R TM, L TM WNL, no lesions post or pre-auricular. EYES: Pupils PERRLA, EOMs intact without nystagmus, normal conjunctiva, no exudates on lids/lashes, no dendritic lesions or corneal abnormalities on fluorescein eye exam, endorses pain with looking R and up, no eyelid swelling/erythema. Facial vesicular rash about 1x1cm oblong above her R eye at the lateral border of the eyebrow, no honey-colored crusting. No facial droop. No oral lesions, Ferguson's sign negative. Differential / pathologies of concern include Zoster- Gus Rodgers Syndrome, Staph Skin Infection, Orbital Cellulitis, HSV Ophthalmicus, Less likely temporal arteritis. Diagnostic studies of: -CBC, CMP, CRP/ESR, Wound Cx (to ruleout staph, if neg VZV more likely), CT Orbits w Contrast. -CBC benign, no leukocytosis -CMP benign -CRP/ESR neg, unlikely temporal arteritis w no TTP on exam and neg inflam markers -CT Orbits shows no orbital cellulitis Interventions of: -Started Valtrex & Prednisone until Wound Cx returns, advised close follow-up for wound results by calling ED, and following with provider. ED Course/Assessment/Plan: Patient presents with severe stabbing pain in a cranial nerve distribution around the right side of her face getting worse since the weekend with development of a vesicular rash during course of illness just above her right thigh. She thought this was initially a staph infection that her family has been fighting for the last month or so but this does seem to calm down among her family members lately. This lesion did not respond to antibiotic ointment. I am concerned with her pain with eye movement and the localization of her vesicular rash as well as ear pain radiating around to the occiput for possible zoster infection and Gus Rodgers syndrome, due to the urgency to intervene on this potential diagnosis discussed treatment with the patient with Valtrex and prednisone which she agreed to. She will closely follow with results of her wound culture for the potential for staph as a diagnosis-in which she may discontinue Valtrex and start antibiotics, but this lesion did not clinically present with a honey colored crust as many staph infections do it and definitely appeared more herpetic in nature. Findings not consistent with Orbital Cellulitis, Staph Skin Infection, Herpetic infectious lesions on cornea, temporal arteritis. Disposition of Herpes Zoster. Patient verbalized understanding of the plan and return to ED criteria and engaged in shared decision making. Medical Records Medical records reviewed: Yes I reviewed the patient's medical records. Imaging Data Radiologic Study: Imaging: CT Scan Radiologist's impression: CT ORBITS W EXAM: CT ORBITS W CLINICAL HISTORY: pain with eye movement, skin lesion. TECHNIQUE: Imaging Protocol: Axial computed tomography images with coronal and sagittal reformatted images were created and reviewed CONTRAST MATERIAL: Intravenous: Omnipaque 350 Contrast volume:structured data in ml Contrast route:IV - COMPARISON: CT CT BRAIN NECK CTA from 04/21/2021 FINDINGS: Globes: intact. Optic Nerves: Normal. Extraocular muscles: Normal. Retrobulbar fat: Normal. Bones:: No fracture is noted. No destructive bony lesions. Vasculature:: Normal. Sinuses: Minimal mucosal thickening Soft Tissues: Normal. IMPRESSION: Normal CT scan of the orbits. Lab Data Lab results reviewed: Yes I reviewed the patient's lab results. Labs: Laboratory Tests Range/Units 07/06/23 17:30 WBC (4.4-10.8) 10^3/uL 6.07 RBC (3.93-5.22) 10^6/uL 4.35 Hgb (11.2-15.7) g/dL 12.7 Hct (36.0-46.0) % 39.1 MCV (80-95) fL 90 MCH (27.0-33.0) pg 29.2 MCHC (32.0-36.0) % 32.5 RDW (11.7-14.6) % 12.8 Plt Count (130-400) 10^3/uL 197 MPV (8.0-11.0) fL 11.6 H Immature Gran % 0.5 Neutrophils % 60.1 Lymphocytes % 27.2 Monocytes % 7.9 Eosinophils % 3.8 Basophils % 0.5 Nucleated RBC % (0.0-0.3) % 0.0 Absolute Neutrophils (1.2-6.7) 10^3/uL 3.65 Absolute Lymphocytes (1.2-3.4) 10^3/uL 1.65 Absolute Monocytes (0.1-0.8) 10^3/uL 0.48 Absolute Eosinophils (0.0-0.7) 10^3/uL 0.23 Absolute Basophils (0.0-0.2) 10^3/uL 0.03 ESR (0-20) mm/hr 1 Sodium (136-145) mmol/L 141 Potassium (3.5-5.1) mmol/L 3.6 Chloride (98-107) mmol/L 106 Carbon Dioxide (21.0-32.0) mmol/L 27.1 Anion Gap (3-11) mmol/L 7.9 BUN (7-18) mg/dL 13 Creatinine (0.55-1.02) mg/dL 0.8 Est GFR (CKD-EPI 2020) (mL/min/1.73m2) 93.70 Glucose (74-106) mg/dL 111 H Calcium (8.5-10.1) mg/dL 8.4 L Total Bilirubin (0.2-1.0) mg/dL 0.3 AST (15-37) U/L 12 L ALT (14-59) U/L 19 Alkaline Phosphatase (46-116) U/L 42 L C-Reactive Protein (0.0-0.3) mg/dL 0.06 Total Protein (6.4-8.2) g/dL 7.2 Albumin (3.4-5.0) g/dL 3.9 HPI General Date/Time Provider Initiated Documentation: 07/06/23 17:13 . HPI Narrative: 42 year-old female presents to ED today by POV/ambulating with a chief complaint of severe R facial/eye/ear pain with onset over the weekend- getting worse. Patient then has developed a rash above her R eye that is vesicular in nature- patient had a doctor in her family look at her early in course who stated it was probably TMJ syndrome. Quality described as severe intermittent stabbing and burning pains behind her R eye, facial twitching, and pain traveling back behind her ear to base of skull, no radiation to visual loss, facial paralysis, tenderness with light touch to parietal area, fevers, vertigo, endorses chronic tinnitus. Severity is described as 10/10. Palliating factors include tried applying OTC antibiotic ointment to the rash that developed but it is not responding- patient states there was some staph skin infections going around in her family last month but that seemed to be under control. Provoking factors include nothing specific. Events leading up to the incident/Associated Symptoms: Patient did have chicken pox as a child. Patient not anticoagulated. Related Data Home Medications Medication Instructions Recorded Confirmed calcium carb-vit [id number] 1 tab PO DAILY 04/24/21 07/06/23 333 mg-200 unit-133 mg-5 mg tablet prednisone 20 mg tablet 60 mg (3 x 20 mg) PO DAILY zoster 07/06/23 5 days #15 tabs valacyclovir 1 gram tablet 1,000 mg PO Q8H zoster 10 days #30 07/06/23 tabs Previous Rx's Medication Instructions Recorded prednisone 20 mg tablet 60 mg (3 x 20 mg) PO DAILY zoster 07/06/23 5 days #15 tabs valacyclovir 1 gram tablet 1,000 mg PO Q8H zoster 10 days #30 07/06/23 tabs Allergies Allergy/AdvReac Type Severity Reaction Status Date / Time No Known Allergies Allergy Unverified 07/06/23 17:12 General Stated Complaint: FacialProb SHERWIN: 4 Review of Systems All systems reviewed & are unremarkable except as noted in HPI and below PFSH All Active Problems (Updated 07/06/23 @ 18:55 by ARMEN Hills) Herpes zoster (Acute) Migraine headache with aura (Acute) Headache (Acute) Dyspnea on exertion (Acute) Eczema (Acute) History of lymphadenopathy (Acute) Asymptomatic superficial varicose vein of left lower extremity (Acute 10/30/16) Positive GBS test (Acute 06/12/14) Need for immunization against influenza (Acute 05/15/14) Nausea and vomiting during prior to 22 weeks gestation (Acute 06/25/16) Grand multipara (Acute 12/20/13) Anemia affecting in third trimester (Acute 10/30/16) Group B Streptococcus carrier, delivered, current hospitalization (Acute 06/17/14) Compound presentation, delivered, current hospitalization (Acute 06/18/14) Previous delivery, antepartum (Acute 06/17/14) Medical History Dyspnea on exertion Migraine headache with aura Family History Mother Mental disorder chemical imbalance Father Hyperlipidemia Sister No problems noted. Brother No problems noted. Brother No problems noted. Brother No problems noted. Social History Smoking/Tobacco Use Status: Never Smoking risk assessment performed?: Yes Alcohol Intake: current Alcohol Intake frequency: a few times a month Alcohol type: other Drug use: Never What type of physical activity do you participate in: walking Duration: 60-90 minutes/day Frequency: daily Do you feel safe at home: Yes Do you feel safe in your relationship?: Yes Exam Narrative Exam Narrative: GENERAL APPEARANCE: Well-nourished, non-toxic, awake and alert, atraumatic, no acute distress. SKIN: Warm, pink, dry, intact, - has facial vesicular rash about 1x1cm oblong above her R eye at the lateral border of the eyebrow, no honey-colored crusting HEAD: Normocephalic, atraumatic, normal hair distribution for gender/age, no tenderness with light-touch to parietal/temporal area EYES: Pupils PERRLA, EOMs intact without nystagmus, normal conjunctiva, no exudates on lids/lashes, no dendritic lesions or corneal abnormalities on fluorescein eye exam, endorses pain with looking R and up, no eyelid swelling/erythema. ENT: Nares patent, no circumoral cyanosis, no facial swelling, no vesicular lesions on R TM, no erythema to R TM, L TM WNL, no lesions post or pre- auricular. NECK: Supple, trachea midline, painless cervical ROM. LUNGS/CHEST: Non-labored respirations, normal A/P diameter, symmetrical expansion, no chest wall deformity HEART (CV/PV): No peripheral edema, no JVD. ABDOMEN: Soft, non-distended, no guarding. MSK: Normal ROM, no swelling/deformity to bilateral UEs or LEs, moving all extremities without weakness, no cyanosis, spine midline without tenderness, normal curvature. NEURO: Mental Status AAOx4 - alert to person, place, time, events No facial droop, no forehead involvement. Motor: No focal weakness - strength 5/5 in bilateral UEs and LEs, proximal and distal, symmetric. Sensory: sensation intact to light touch globally. Gait normal: patient ambulated without ataxia into ED room. PSYCH: euthymic, cooperative, pleasant, appropriate speech Course Vital Signs Vital signs: Vital Signs Temperature 36.2 C L 07/06/23 17:08 Pulse 73 07/06/23 17:08 Respiratory Rate 18 07/06/23 17:08 Blood Pressure 172/89 H 07/06/23 17:08 Pulse Oximetry 100 07/06/23 17:08 Temperature 36.2 C L 07/06/23 17:08 Temperature Source Skin 07/06/23 17:08 Pulse 73 07/06/23 17:08 Respiratory Rate 18 07/06/23 17:08 Respiratory Effort Normal 07/06/23 17:12 Blood Pressure 172/89 H 07/06/23 17:08 Blood Pressure Position Sitting 07/06/23 17:08 Pulse Oximetry 100 07/06/23 17:08 Oxygen Delivery Method Room Air 07/06/23 17:08 Oxygen Flow Rate 0 07/06/23 17:08 Pain Level 8 07/06/23 17:12
[2023-07-06 17:50] LABS: ESR 1 mm/hr (0-20)
[2023-07-06 17:53] LABS: Abs Immature Grans 0.03 10^3/uL (0.0-0.06); Absolute Basophil Count 0.03 10^3/uL (0.0-0.2); Absolute Eosinophil Count 0.23 10^3/uL (0.0-0.7); Absolute Lymphocyte Count 1.65 10^3/uL (1.2-3.4); Absolute Monocyte Count 0.48 10^3/uL (0.1-0.8); Absolute Neutrophil Count 3.65 10^3/uL (1.2-6.7); Basophils % 0.5; Eosinophils % 3.8; HCT 39.1 % (36.0-46.0); HGB 12.7 g/dL (11.2-15.7); Immature Grans % 0.5; Lymphocytes % 27.2; MCH 29.2 pg (27.0-33.0); MCHC 32.5 % (32.0-36.0); MCV 90 fL (80-95); MPV 11.6 fL (8.0-11.0); Monocytes % 7.9; Neutrophils % 60.1; Platelet Count 197 10^3/uL (130-400); RBC 4.35 10^6/uL (3.93-5.22); RDW 12.8 % (11.7-14.6); RDW-SD 42.2 fL; WBC 6.07 10^3/uL (4.4-10.8)
[2023-07-06 18:03] LABS: ALT 19 U/L (14-59); AST 12 U/L (15-37); Albumin 3.9 g/dL (3.4-5.0); Alkaline Phosphatase 42 U/L (46-116); Anion Gap 7.9 mmol/L (3-11); BUN 13 mg/dL (7-18); Bilirubin, Total 0.3 mg/dL (0.2-1.0); C-Reactive Protein 0.06 mg/dL (0.0-0.3); CO2 27.1 mmol/L (21.0-32.0); CREATININE 0.8 mg/dL (0.55-1.02); Calcium 8.4 mg/dL (8.5-10.1); Chloride 106 mmol/L (98-107); Glucose 111 mg/dL (74-106); Potassium 3.6 mmol/L (3.5-5.1); Sodium 141 mmol/L (136-145); Total Protein 7.2 g/dL (6.4-8.2)
[2023-07-06] MEDS: Omnipaque 350 MG/ML 100 ML BTL IJ (18:11)
[2023-07-06] MEDS: Normal Saline - Diluent 50 ML VIAL IJ (18:11)
--- NOTE | 2023-07-06 18:15 | DI.CT_ITS ---
Exam(s) CT ORBITS W EXAM: CT ORBITS W CLINICAL HISTORY: pain with eye movement, skin lesion. TECHNIQUE: Imaging Protocol: Axial computed tomography images with coronal and sagittal reformatted images were created and reviewed CONTRAST MATERIAL: Intravenous: Omnipaque 350 Contrast volume:structured data in ml Contrast route:I V - COMPARISON: CT CT BRAIN NECK CTA from 04/21/2021 FINDINGS: Globes: intact. Optic Nerves: Normal. Extraocular muscles: Normal. Retrobulbar fat: Normal. Bones:: No fracture is noted. No destructive bony lesions. Vasculature:: Normal. Sinuses: Minimal mucosal thickening Soft Tissues: Normal. IMPRESSION: Normal CT scan of the orbits. RADIATION DOSE DELIVERED: Total DLP DATA REPOSITORY: All CT scans at this facility are submitted to the National Radiology Data Registry (NRDR) Dose Index Registry (DIR) with the [employer] (ACR). RADIATION OPTIMIZATION: All CT scans at this facility use at least one of these dose optimization te chniques: automated exposure control; mA and/or kV adjustment per patient size (includes targeted exa ms where dose is matched to clinical indication); or iterative reconstruction.
[2023-07-06] MEDS: Acetaminophen 500 MG TAB 1000 MG PO (19:56)
[2023-07-06] MEDS: predniSONE 20 MG TAB 60 MG PO (19:56)
[2023-07-06] MEDS: valACYclovir 1,000 MG TAB 1000 MG PO ×2 (19:56→19:57)
[2023-07-06] MEDS: Ketorolac 10 MG TAB PO (19:56)
[2023-07-06 19:57] VITALS: BP 126/76; PULSE 68; RESP 18; O2SAT 98
== END 2023-07-06 20:01 | disposition home or self-care (01) ==
PROVIDERS: Emergency Provider Physician Assistant; PCP Family Medicine
DX: R51.9 Headache, unspecified (principal); B02.9 Zoster without complications
CPT/HCPCS: 36415; 80053; 81025; 85652; 99285; 70481; 85025; 86140; 87070; 87205; 99284; J3490; J7512

== ENCOUNTER 2024-02-14 15:39 | Outpatient (REF) | payer OTHER, SELFPAY ==
--- OUTSIDE RECORDS SUMMARY | 2024-02-14 15:43 | XMS_ITS | Encounter Summary ---
Author Organization [facility] [place] [address] Care Team Providers Care Data Clerk Name Role Phone Debra Rocha MD Primary Care Provider [phone] Reason for Referral * Consultation (Routine) - Closed Specialty Diagnoses / Procedures Referred By Jailene poon Referred To Contact Otolaryngology Diagnoses Tinnitus, left ear Debra Rocha MD [address] [place] [address] [facility] [address] [place] [phone] Referral ID Status Reason Start Date Expiration Date V isits Requested Visits Authorized [id number] Closed Consult, Test & Treat 08/07/2023 08/06/2024 1 1 Encounter Details Date Type Department Care Team (Late st Contact Info) Description 08/07/2023 Transcribe Orders [facility] Incoming Referrals [phone] Debra Rocha MD [address] [place] [address] Tinnitus, left ear Social History Tobacco Use Types Packs/Day Years Used Date Smoking Tobacco: Never Smokeless Tobacco: Never Alcohol Use Standard Drinks/Week Comments Not Asked 0 (1 standard drink = 0.6 oz pur e alcohol) Sex and Gender Information Value Date Recorded Sex Assigned at Female 11/07/2020 2:12 PM EDT Gender Identity Female 11/07/2020 2:12 PM EDT Sexual Orientation Straight 11/07/2020 2: 12 PM EDT documented as of this encounter Plan of Treatment Scheduled Referrals Name Type Priority Associated Diagnoses Orde r Schedule Referral to ENT Outpatient Referral Routine Tinnitus, left ear Ordered: 08/07/2023 documented as of this encounter Visit Diagnoses Diagnosis Tinnitus, left ear documented in this encounter Care Teams Data Clerk Relationship Specialty Start Date End Date Debra Rocha MD [address] [place] [address] PCP - General 01/18/14 documented as of this encounter
--- OUTSIDE RECORDS SUMMARY | 2024-02-14 15:43 | XMS_ITS | Encounter Summary ---
Author Organization [facility]ly [facility] [place] [address] Care Team Providers Care Silver Solderer Name Role Phone Debra Rocha MD Primary Care Provider [phone] Reason for Referral * Diagnostic Test (Routine) - Closed Specialty Diagnoses / Procedures Referred By Contac t Referred To Contact Radiology Diagnoses Dyspnea on exertion Palpitations Chest tightness Procedures CT Angiogram Coronary Arteries Debra Rocha MD [address] [place] [address] [facility] [place] [address] Referral ID Status Reason Start Date Expiration Date V isits Requested Visits Authorized [id number] Closed Specialty Service Requested 11/07/2020 05/09/2022 1 1 Reason for Visit * Diagnostic Test (Routine) - Closed Specialty Diagnoses / Procedures Referred By Contac t Referred To Contact Radiology Diagnoses Dyspnea on exertion Palpitations Chest tightness Procedures CT Angiogram Coronary Arteries Debra Rocha MD [address] [place] [address] [facility] [place] [address] Referral ID Status Reason Start Date Expiration Date V isits Requested Visits Authorized [id number] Closed Specialty Service Requested 11/07/2020 05/09/2022 1 1 Encounter Details Date Type Department Care Team (Latest Contact Info) Description 11/11/2020 10:30 AM EDT - 11/11/2020 11:59 PM EDT Hospital En[facility] CT [facility] [place] [address] Debra Rocha MD [facility] [address] [place] [address] Dyspnea on exertion; Palpitations; Chest tightness Discharge Disposition: Home Social History Tobacco Use Types Packs/Day Years Used Date Smoking Tobacco: Never Smokeless Tobacco: Never Alcohol Use Standard Drinks/Week Comments Not Asked 0 (1 standard drink = 0.6 oz pur e alcohol) Comments Yes Sex and Gender Information Value Date Recorded Sex Assigned at Female 11/07/2020 2:12 PM EDT Gender Identity Female 11/07/2020 2:12 PM EDT Sexual Orientation Straight 11/07/2020 2: 12 PM EDT documented as of this encounter Medications at Time of Discharge Medication Sig Dispensed Refills Start Date End Date betamethasone, augmented, (DIPROLENE) 0.05 % LotionIndications:Eczema , unspecified type Apply BID to affected areas on the trunk and extremities as directed 60 mL 3 12/24/2017 clobetasol (TEMOVATE) 0.05 % CreamIndications:Atopic dermatitis, unspecified type 06/11/2017 hydrocortisone 2.5 % CreamIndications:Atopic dermatitis, unspecified type 06/11/2017 tacrolimus (PROTOPIC) 0.1 % OintmentIndications:Atop ic dermatitis, unspecified type Apply topically 2 times daily. Use for eczema-prone areas on face. 30 g 3 08/19/2017 VITS W-CA,FE,FA,<1MG, ( VITAMIN ORAL) Take by mouth. documented as of this encounter Plan of Treatment Not on file documented as of this encounter Procedures Procedure Name Priority Date/Time Associated Diagnosis Comments CT ANGIOGRAM CORONARY ARTERIES Routine 11/11/2020 11:10 AM EDT Dyspnea on exertion Palpitations Chest tightness documented in this encounter Results * CT Angiogram Coronary Arteries (11/11/2020 11:10 AM EDT) Anatomical Region Laterality Modality Cardiac Computed Tomogra phy Impressions 11/11/2020 2:04 PM EDT 1. ??Coronary calcium score of 0 2. ??Normal coronary arteries Thank you for letting us participate in the care of this patient. ??If you are a health care provider and have any questions regarding this report, please contact the number below. ??For patients who have questions please contact the health healthcare financial analyst that requested your imaging first. ? Electronically signed by: Darin Felder MD, [facility] ([phone]), at 11/11/2020 2:04 PM Narrative 11/11/2020 2:04 PM EDT EXAMINATION: CTA Coronary Arteries CLINICAL HISTORY: Dyspnea on exertion, palpitations, abnormal stress test COMPARISON: None TECHNIQUE: 3 mm thick axial contiguous sections through the heart were obtained via ECG-gated axial mode acquisition without intravenous contrast. After time bolus, 0.6 mm thick axial contiguous sections were obtained through the heart via ECG-gated helical acquisition during intravenous administration of 94.5 cc Omnipaque 350. Post-processing was performed on an independent computer workstation including curved multiplanar reformats, coronary calcium scoring, and 3D reconstructions. FINDINGS: Artifacts: No significant artifacts. Coronary calcium score: Coronary calcium score of 0 Coronary arteries: Left main: The left main arises from the left coronary cusp. It trifurcates into the left anterior descending, circumflex and ramus arteries. No identifiable plaque or stenosis present. Left anterior descending: The left anterior descending courses anteriorly to the apex. It gives off 1 patent diagonal branches. No identifiable plaque or stenosis is present. Diagonal branches: No identifiable plaque or stenosis present. Left circumflex: Nondominant. The left circumflex courses in the AV groove and gives off one patent obtuse marginal branch. No identifiable plaque or stenosis. Obtuse marginal branches: No demonstrable plaque or stenosis. Right coronary: Dominant vessel. The right coronary arises from the right coronary cusp. It terminates as the posterior descending and right posterior lateral branch. There is no identifiable plaque or stenosis. Posterior descending: No demonstrable plaque or stenosis. Posterolateral branch: No demonstrable plaque or stenosis. Cardiac chambers: The left ventricle is normal in size. No evidence of previous infarct. Interventricular septum appears intact. The left atrium appears normal in size. The left atrial appendage is without thrombus. Interatrial septum appears intact. Great vessels: The aorta is normal in course and caliber for age. Visualized portions of the proximal pulmonary arteries are without thrombus. Procedure Note Darin Felder MD - 11/11/2020 EXAMINATION: CTA Coronary Arteries CLINICAL HISTORY: Dyspnea on exertion, palpitations, abnormal stresstest COMPARISON: None TECHNIQUE: 3 mm thick axial contiguous sections through the heart wereobtained via ECG-gated axial mode acquisition without intravenous contrast. Aftertime bolus, 0.6 mm thick axial contiguous sections were obtained through theheart via ECG-gated helical acquisition during intravenous administration of94.5 cc Omnipaque 350. Post-processing was performed on an independent computer workstation including curved multiplanar reformats, coronary calciumscoring, and 3D reconstructions. FINDINGS: Artifacts: No significant artifacts. Coronary calcium score: Coronary calcium score of 0 Coronary arteries: Left main: The left main arises from the left coronary cusp. Ittrifurcates into the left anterior descending, circumflex and ramus arteries. Noidentifiable plaque or stenosis present. Left anterior descending: The left anterior descending courses anteriorlyto the apex. It gives off 1 patent diagonal branches. No identifiable plaque or stenosis is present. Diagonal branches: No identifiable plaque or stenosis present. Left circumflex: Nondominant. The left circumflex courses in the AV grooveand gives off one patent obtuse marginal branch. No identifiable plaque orstenosis. Obtuse marginal branches: No demonstrable plaque or stenosis. Right coronary: Dominant vessel. The right coronary arises from theright coronary cusp. It terminates as the posterior descending and rightposterior lateral branch. There is no identifiable plaque or stenosis. Posterior descending: No demonstrable plaque or stenosis. Posterolateral branch: No demonstrable plaque or stenosis. Cardiac chambers: The left ventricle is normal in size. No evidence ofprevious infarct. Interventricular septum appears intact. The left atrium appearsnormal in size. The left atrial appendage is without thrombus. Interatrialseptum appears intact. Great vessels: The aorta is normal in course and caliber for age.Visualized portions of the proximal pulmonary arteries are without thrombus. IMPRESSION 1. Coronary calcium score of 0 2. Normal coronary arteries Thank you for letting us participate in the care of this patient. If youare a health care provider and have any questions regarding this report,please contact the number below. For patients who have questions please contactthe health healthcare financial analyst that requested your imaging first. Electronically signed by: Darin Felder MD, [facility]([phone]), at 11/11/2020 2:04 PM Debra Rocha MD IMG CT ORDERABLES documented in this encounter Visit Diagnoses Diagnosis Dyspnea on exertion Other dyspnea and respiratory abnormality Palpitations Chest tightness Other chest pain documented in this encounter Administered Medications Inactive Administered Medications - up to 3 most recent administrations Medication Order MAR Action Action Date Dose Rate Site iohexoL (Omnipaque) (350 mg/mL) injection solution 0-200 mL 0-200 mL, Intravenous, ONCE PRN, 1 dose, Starting on Wed11/11/20 at 1054, Until Wed11/11/20 at 1111, Per Protocol, Warning Vesicant/Irritant Medication , Radiology Contrast, Routine Given 11/11/2020 11:11 AM EDT 94 mLs documented in this encounter Care Teams Silver Solderer Relationship Specialty Start Date End Date Debra Rocha MD [address] [place] [address] PCP - General 01/18/14 documented as of this encounter
--- OUTSIDE RECORDS SUMMARY | 2024-02-14 15:43 | XMS_ITS | Encounter Summary ---
Author Organization [facility] Address [facility] [place] [address] Care Team Providers Care Environmental Field Professional Name Role Phone Debra Rocha MD Primary Care Provider [phone] Reason for Visit * Reason Comments Follow-up Encounter Details Date Type Department Care Team (Late st Contact Info) Description 05/20/2018 10:45 AM EDT Office Visit Dermatology at [address] [address] Stephane Magana MD [facility] [place] [address] Atopic dermatitis, unspecified type (Primary Dx) Social History Tobacco Use Types Packs/Day Years [...] PM EDT documented as of this encounter Progress Notes * Stephane Magana MD - 05/20/2018 10:45 AM EDT Images from the original note were not included. DERMATOLOGY [place], [place] FOLLOW-UP Chief Complaint: patch testing and dermatitis f/u History of Present Illness Maris Owen is a 37 y.o. female Here for follow-up after patch test complication - ie, Id reaction c/b impetigo in the testing area- who reports improvement after bleach bath and application of mupirocin. Antecedent History: History of atopic dermatitis since childhood who reports that since May 2017, she has had a persistent, generalized flare causing moderate to severe itching, redness, scalingand sometimes mild pain. The worst areas are her hands and behind her knees. She has been treating with hydrocortisone on her face and clobetasol elsewhere with poor control; she tried using Protopicbut it burned for 24 hours and the betamethasone was too greasy. No known triggers; however she didget worse last week when she was diagnosed with a viral infection. Does not take antihistamines. Currently, uses Cetaphil soap, Dermarest, free and clear laundry detergent, hydrocortisone and clobetasol 1-2 times per day which is necessary. History of skin prick testing in 2017 - no results available - but has never been patch testing. Patient is . Never been biopsied. Interval Changes in Medications and Medical, Surgical Family, and Social Histories Since Last Visit24 Apr 2018 : No significant and pertinent interval changes. Allergies Patient has no known allergies. Medications has a current medication list which includes the following prescription(s): betamethasone (augmented), clobetasol, hydrocortisone, tacrolimus, and vit calc,iron,folic. Social History Tobacco use - never Stay at home mother Review of Systems Significant for no pertinent and acute changes in constitutional, other skin, musculoskeletal systems upon specific queries. Examination Standby: Tasya Rakasiwi Mood is appropriate and congruent with effect. Well developed, well-nourished in no apparent distress, alert and oriented to time, person, place and situation. Focused exam of the back, significant for the following: ?? Diffuse patches and macules of erythema on the mid-back. Possible positive #9 neomycin sulfate Images Photo taken by Gloria Magana MD. with patient's verbal permission for use for clinical and education purposes. Figure A Assessment and Plan Atopic Dermatitis with possible ACD Improved after moderate Id reaction c/b impetigo Moderate flare persistent since May 2017. No evidence of infection. Possible positives formaldehyde and neomycin sulfate. Possible reaction to formaldehyde but Id reaction encroached on testing area. By patient report, when she applies neosporin or OTC antibiotic, her skin swells. Likely combination of atopic dermatitis with allergic contact dermatitis but the trigger is unknown; patient is using conventional hypoallergenic personal care products. Reviewed systemic treatment options, including benefits and risks, such as Dupixent, CellCept ?? Continue allergen avoidance as previously discussed ?? Continue betamethasone lotion BID instead of ointment or cream for severe flares. Counseled: risks of topical steroids, including but not limited to atrophy, dyspigmentation. ?? Continue hydrocortisone 2.5% cream BID as needed ?? Recommended tanning salon 2-3 times weekly for flares. If dermatitis improves, plan to put in for home unit [facility] for insurance coverage ?? Recommended bleach baths ?? Continue hypoallergenic personal care products Allergic Contact Dermatitis Counseled: ACD, check ingredients in products using and cross-reference ingredients with allergens (and their synonyms) identified today, avoid allergens, and protect the skin from dryness/exposure. Patient to be sent via email (given the size of the document) an [place] [employer] (CAMP)-derived list of products that do not contain the above allergen, if available. Avoidance of neosporin. Consider repatch testing for formaldehyde. Recommend trial of avoidance of formaldehyde and -releasers. Follow-up: in 6 weeks or sooner as needed for worsening dermatitis Note initiated by Meenakshi Sanchez has performed the documentation for this encounter in the presence of and acting as a scribe for Dr. Magana. I performed the above scribed service and agree with the accuracy of the documentation in this encounter. Stephane Magana MD [facility] Section of Dermatology [facility] documented in this encounter Plan of Treatment Not on file documented as of this encounter Visit Diagnoses Diagnosis Atopic dermatitis, unspecified type- Primary documented in this encounter Care Teams Environmental Field Professional Relationship Specialty Start Date End Date Debra Rocha MD [address] [place] [address] PCP - General 01/18/14 documented as of this encounter
--- OUTSIDE RECORDS SUMMARY | 2024-02-14 15:43 | XMS_ITS | Clinical Summary ---
Author Organization [facility] Address [facility] [place] [address] Care Team Providers Care Rotary Driller Helper Name Role Phone Debra Rocha MD Primary Care Provider Allergies No known active allergies Medications Medication Sig Dispensed Refills Start Date End Date Status VITS W-CA,FE,FA,<1MG, ( VITAMIN ORAL) Take by mouth. Active clobetasol (TEMOVATE) 0.05 % CreamIndications:Ra pic dermatitis, unspecified type 06/11/2017 Active hydrocortisone 2.5 % CreamIndications:Ra pic dermatitis, unspecified type 06/11/2017 Active tacrolimus (PROTOPIC) 0.1 % OintmentIndications: Atopic dermatitis, unspecified type Apply topically 2 times daily. Use for eczema-prone areas on face. 30 g 3 08/19/2017 Active Additional Information Patient not taking.Reported on 10/21/2023 betamethasone, augmented, (DIPROLENE) 0.05 % LotionIndications:Ec zema, unspecified type Apply BID to affected areas on the trunk and extremities as directed 60 mL 3 12/24/2017 Active Additional Information Patient not taking.Reported on 10/21/2023 gabapentin (Neurontin) 100 mg capsule Take 100 mg by mouth 3 times daily. Active Active Problems No known active problems Family History Medical History Relation Comments Eye Disorder Brother 1 Retinitis pigmen tosa Eye Disorder Brother 2 Retinitis pigmen tosa Eye Disorder Father retinitis pigmen tosa on father's side of family - patient tested negative Arthritis Father of Baby Anxiety Disorder Mother Depression Mother Eye Disorder Sister Retinfabienne britt Relation Status Comments Brother 1 Alive Brother 2 Alive Brother 3 Alive Father Father of Baby Alive Mother Alive Sister Alive Social History Tobacco Use Types Packs/Day Years Used Date Smoking Tobacco: Never Smokeless Tobacco: Never Tobacco Cessation:Counseling Given: Not Answered Alcohol Use Standard Drinks/Week Comments Not Asked 0 (1 standard drink = 0.6 oz pur e alcohol) Sex and Gender Information Value Date Recorded Sex Assigned at Female 11/07/2020 2:12 PM EDT Gender Identity Female 11/07/2020 2:12 PM EDT Sexual Orientation Straight 11/07/2020 2: 12 PM EDT Last Filed Vital Signs Vital Sign Reading Time Taken Comments Blood Pressure 114/68 01/23/2014 3:15 PM EDT Pulse - - Temperature - - Respiratory Rate - - Oxygen Saturation - - Inhaled Oxygen Concentration - - Weight 68 kg (150 lb) 10/21/2023 10:20 AM EDT Height 167.6 cm (5' 6) 10/21/2023 10:20 AM EDT Body Mass Index 24.21 10/21/2023 10:20 AM EDT Plan of Treatment Health Maintenance Due Date Last Done Comments HIV screen 1997 Hepatitis C Screening 1997 Hepatitis B vaccine (0-59 yrs) (1) 1998 Tdap adult 1998 Tetanus vaccine 1998 HPV test 2009 PAP Smear 2009 Breast Cancer Share Decision Needed 2019 Breast Cancer screening 2019 Covid-19 Vaccine ( - 2022-24 season) 2023 Influenza (Flu) vaccine (1 o f 1 - Influenza standard series) 03/26/2024 Care Teams Rotary Driller Helper Relationship Specialty Start Date End Date Debra Rocha MD [address] [place] [address] [facility] - General 01/18/14
--- OUTSIDE RECORDS SUMMARY | 2024-02-14 15:43 | XMS_ITS | Encounter Summary ---
[place] [address] Care Team Providers Care Director Of Slot Operations Name Role Phone Debra Rocha MD Primary Care Provider Encounter Details Date Type Department Care Team (Latest Contact Info) Description 10/20/2023 Travel Social History Tobacco Use Types Packs/Day Years [...] documented as of this encounter Visit Diagnoses Not on filedocumented in this encounter Care Teams Director Of Slot Operations Relationship Specialty Start Date End Date Debra Rocha MD [address] [place] [address] PCP - General 01/18/14 documented as of this encounter
--- OUTSIDE RECORDS SUMMARY | 2024-02-14 15:43 | XMS_ITS | Encounter Summary ---
Author Organization [facility] Address [facility] [place] [address] Care Team Providers Care Product Safety Administrator Name Role Phone Debra Rocha MD Primary Care Provider [phone] Encounter Details Date Type Department Care Team (Late st Contact Info) Description 06/29/[address] [facility] [address] [place] [address] Stephane Magana MD [facility] [address] [place] [address] Social History Tobacco Use Types Packs/Day Years [...] PM EDT documented as of this encounter Miscellaneous Notes * Telephone Encounter - Karl Urban, ENVIRONMENTAL ADVISOR - 06/29/2018 1:40 PM EST Spoke with Ms. Owen regarding her six week follow up from Patch testing, at this time she stated she is doing great and follow is not needed. She has my direct number to call if in the future she would like to schedule. documented in this encounter Plan of Treatment Not on file documented as of this encounter Visit Diagnoses Not on filedocumented in this encounter Care Teams Product Safety Administrator Relationship Specialty Start Date End Date Debra Rocha MD [address] [place] [address] PCP - General 01/18/14 documented as of this encounter
--- OUTSIDE RECORDS SUMMARY | 2024-02-14 15:43 | XMS_ITS | Encounter Summary ---
Author Organization [facility] Address [facility] [place] [address] Care Team Providers Care Team Guide Name Role Phone Debra Rocha MD Primary Care Provider [phone] Reason for Visit * Consultation (Routine) - Closed Specialty Diagnoses / Procedures Referred By Jailene poon Referred To Contact Otolaryngology Diagnoses Tinnitus, left ear Debra Rocha MD [facility] [address] [facility] [address] [place] [address] [facility] [address] [place] [id number] Referral ID Status Reason Start Date Expiration Date V isits Requested Visits Authorized [id number] Closed Consult, Test & Treat 08/07/2023 08/06/2024 1 1 Encounter Details Date Type Department Care Team (Latest Contact Info) Description 10/21/2023 10:20 AM EDT Office [place] [address] Franco Bass III, MD [facility] [place] [address] Sensorineural hearing loss (SNHL) of both ears; Tinnitus of both ears Social History Tobacco Use Types Packs/Day Years [...] PM EDT documented as of this encounter Last Filed Vital Signs Vital Sign Reading Time Taken Comments Blood Pressure - - Pulse - - Temperature - - Respiratory Rate - - Oxygen Saturation - - Inhaled Oxygen Concentration - - Weight 68 kg (150 lb) 10/21/2023 10:20 AM EDT Height 167.6 cm (5' 6) 10/21/2023 10:20 AM EDT Body Mass Index 24.21 10/21/2023 10:20 AM EDT documented in this encounter Progress Notes * Franco Bass III, MD - 10/21/2023 10:20 AM EDT Images from the original note were not included. Otolaryngology Outpatient Consultation Note Date of Visit: 10/21/2023 Location of Visit: Otolaryngology Clinic, [facility] Patient: Maris Owen ([id number]; 1980) Primary Care Provider: Debra Rocha MD Referring Provider: Debra Rocha Reason for Visit: Maris is a 43 y.o. female seen at the request of Debra Rocha in consultation for tinnitus. Referral letter: Reviewed History of Present Illness: Maris reports a several year history of bilateral tinnitus. Initiallythis was only on the right side, but is now bilateral. She has a family history of hearing loss. She denies pain ot drainage, and denies vertigo. There I no noise exposure history. Past Medical History: No past medical history on file. Past Surgical History: No past surgical history on file. Medications: Current Outpatient Medications on File Prior to Visit Medication Sig Dispense Refill gabapentin (Neurontin) 100 mg capsule Take 100 mg by mouth 3 times daily. betamethasone, augmented, (DIPROLENE) 0.05 % Lotion Apply BID to affected areas on the trunk and extremities as directed (Patient not taking: Reported on 10/21/2023) 60 mL 3 clobetasol (TEMOVATE) 0.05 % Cream hydrocortisone 2.5 % Cream tacrolimus (PROTOPIC) 0.1 % Ointment Apply topically 2 times daily. Use for eczema-prone areas on face. (Patient not taking: Reported on 10/21/2023) 30 g 3 VITS W-CA,FE,FA,<1MG, ( VITAMIN ORAL) Take by mouth. No current facility-administered medications on file prior to visit. Allergies: Patient has no known allergies. Social History: Lives in [place] [address]*, Tobacco:No Alcohol:Yes Other: Immunizations UTD. Family History: Family History Problem Relation Age of Onset Eye Disorder Father retinitis pigmentosa on father's side of family - patient tested negative Anxiety Disorder Mother Depression Mother Eye Disorder Sister Retinitis pigmentosa Eye Disorder Brother Retinitis pigmentosa Eye Disorder Brother Retinitis pigmentosa Arthritis Father of Baby Review of Systems: Pertinent positive findings discussed above. No other findings on review of constitutional, visual, cardiovascular, respiratory, gastrointestinal, genitourinary, musculoskeletal, dermatologic, neurological, psychiatric, endocrine, hematologic or immunologic systems. Physical Examination: Vitals: Height 167.6 cm (5' 6), weight 68 kg (150 lb), unknown if currently . General: No acute distress. Face: Full and symmetric facial movement. No dysmorphic facial features. Eyes: Periocular structures and conjunctiva healthy without lesions. Pupils are equal, round, and reactive to light. Extraocular movement is full and intact. No dysconjugate gaze. No evidence of nystagmus. Ears: Auricles symmetric without lesions. External auditory canals clear. Right tympanic membrane normal, right middle ear normal. Left tympanic membrane normal, left middle ear normal. Nose: Patent anteriorly with adequate airflow, healthy pink mucosa. Septum is midline without significant deviation. Inferior turbinates normal Mouth: Lips and gingiva pink, moist, without lesions. Dentition healthy. Tongue and floor of mouth soft without lesions or masses. Hard palate without lesions. Pharynx: Soft palate without lesions. Uvula is intact. Oropharynx symmetric. Larynx: Vocal mobility and morphology normal. Neck: Soft, supple, without significant lymphadenopathy. Thyroid gland without masses or asymmetry.Trachea midline without deviation. Lymphatic: Negative for additional peripheral lymphadenopathy or lymphedema. Neurologic: Cranial nerves II-XII intact and symmetric. Procedure - Otologic Microscopic Examination: External auditory canal visualized utilizing a Stierlen microscope. Findings: unremarkable Audiograms (Personally reviewed by me) Impression: High tone sensorineural hearing loss Recommendations: We will repeat her AE in one year.She can consider hearing aids at any time she wishes. documented in this encounter Plan of Treatment Not on file documented as of this encounter Visit Diagnoses Diagnosis Sensorineural hearing loss (SNHL) of both ears Tinnitus of both ears Unspecified tinnitus documented in this encounter Care Teams Team Guide Relationship Specialty Start Date End Date Debra Rocha MD [address] [facility] [address] [place] [address] PCP - General 01/18/14 documented as of this encounter
--- OUTSIDE RECORDS SUMMARY | 2024-02-14 15:43 | XMS_ITS | Encounter Summary ---
Author Organization [facility] [place] [address] Care Team Providers Care Long Wall Shear Operator Name Role Phone Debra Rocha MD Primary Care Provider [phone] Encounter Details Date Type Department Care Team (Late st Contact Info) Description 11/07/2020 Telephone Cardiology at [address] [phone] Araceli Mart Social History Tobacco Use Types Packs/Day Years [...] encounter Miscellaneous Notes * Telephone Encounter - Araceli Mart - 11/07/2020 8:29 AM EDTSummary: MAIN LINE P/C FROM SPOUSE REGARDING REFERRAL FROM PT'S PCP TO CARDIO MAIN LINE PHONE CALL FROM SPOUSE MAGGIE REGARDING REFERRAL FROM PATIENT'S PCP TO [facility] CARDIOLOGY DEPARTMENT FOR A CARDIAC CT - AFTER RESEARCH & VERBAL PERMISSION FROM PT, INFORMED SPOUSE I WAS UNABLE TO LOCATE ANY INDICATION OF A REFERRAL RECEIVED FROM THE PATIENT'S PCP REQUESTING A CARDIAC CT TO BE PERFORMED. PER SPOUSE THE PCP IS CLAIMING THEY HAVE FAXED REQUESTED REFERRAL TO THE CARDIOLOGY DEPARTMENT (PAPER FAX) SECERAL TIMES. CARDIOLOGY FAX NUMBER GIVING TO SPOUSE REQUESTED - SPOUSE ALSO INQUIRED ON WHETHER OR NOT THEY COULD HAND DELIVER REFERRAL REQUEST TO [facility] CARDIO DEPARTMENT. (P/C DURATION EST. 30- 35 MINS) documented in this encounter Plan of Treatment Not on file documented as of this encounter Visit Diagnoses Not on filedocumented in this encounter Care Teams Long Wall Shear Operator Relationship Specialty Start Date End Date Debra Rocha MD [address] [place] [address] PCP - General 01/18/14 documented as of this encounter
--- OUTSIDE RECORDS SUMMARY | 2024-02-14 15:43 | XMS_ITS | Encounter Summary ---
Author Organization [facility] Address [facility] [place] [address] Care Team Providers Care Automotive Wholesale Parts Advisor Name Role Phone Debra Rocha MD Primary Care Provider [phone] Encounter Details Date Type Department Care Team (Late st Contact Info) Description 05/23/2018 Telephone Dermatology at [facility] [address] [place] [address] Stephane Magana MD [facility] [address] [address] Social History Tobacco Use Types Packs/Day Years [...] Miscellaneous Notes * Telephone Encounter - Karl Urban LNA - 05/23/2018 11:38 AM EDT Left message for Ms. Owen with my direct call back number to schedule 6 week follow up with documented in this encounter Plan of Treatment Not on file documented as of this encounter Visit Diagnoses Not on filedocumented in this encounter Care Teams [employer] Advisor Relationship Specialty Start Date End Date Debra Rocha MD [address] [facility] [address] [place] [address] PCP - General 01/18/14 documented as of this encounter
--- OUTSIDE RECORDS SUMMARY | 2024-02-14 15:43 | XMS_ITS | Encounter Summary ---
Author Organization [facility] Address [facility] [place] [address] Care Team Providers Care Redrying Machine Operator Name Role Phone Debra Rocha MD Primary Care Provider [phone] Encounter Details Date Type Department Care Team (Late st Contact Info) Description 10/21/2023 9:30 AM EDT Office Visit Audiology at [address] [address] Berenice Rodríguez, PhD [facility] [place] [address] Tinnitus of both ears; Sensorineural hearing loss (SNHL) of left ear with restricted hearing of right ear Social History Tobacco Use Types Packs/Day [...] as of this encounter Progress Notes * Berenice Rodríguez, PhD - 10/21/2023 9:30 AM EDT Marisyulisa Owen was seen on 10/21/2023 for an audiologic evaluation in conjunction with Franco Bass III, MD Otolaryngology. BRADLEY Clinton Audiology television station manager participated in this session under direct supervision. I agree with her findings and recommendations. Please refer to the scanned audiogram listed under the Procedures tab in the EMR for findings, impressions and recommendations. Berenice Rodríguez, PhD [place] [address] ; documented in this encounter Plan of Treatment Not on file documented as of this encounter Procedures Procedure Name Priority Date/Time Associated Diagnosis Comments COMPREHENSIVE HEARING TEST Routine 10/21/2023 9:38 AM EDT documented in this encounter Results * Comprehensive hearing test (10/21/2023 9:38 AM EDT) 10/21/2023 9:38 AM EDT Narrative AUDBASE COMP - 10/21/2023 9:38 AM EDT Follow up as scheduled with Franco Bass III, MD Audiology services in conjunction with medical management Tinnitus management strategies. May consider hearing aid trial with tinnitus programming. Provided literature. Procedure Note Unknown - 10/21/2023 Follow up as scheduled with Franco Bass III, MD Audiology services in conjunction with medical management Tinnitus management strategies. May consider hearing aid trial withtinnitus programming. Provided literature. Berenice Rodríguez PhD AUDIOLOGY SERVICES ORDERABLES AUDBASE COMP documented in this encounter Visit Diagnoses Diagnosis Tinnitus of both ears Unspecified tinnitus Sensorineural hearing loss (SNHL) of left ear with restricted hearing of right ear documented in this encounter Care Teams Redrying Machine Operator Relationship Specialty Start Date End Date Debra Rocha MD [facility] [address] [place] [address] PCP - General 01/18/14 documented as of this encounter
--- OUTSIDE RECORDS SUMMARY | 2024-02-14 15:44 | XMS_ITS | Encounter Summary ---
Author Organization [facility] Address [facility] [facility] [place] [address] Care Team Providers Care Admitting Supervisor Name Role Phone Debra Rocha MD Primary Care Provider [phone] Reason for Visit * Reason Comments Advice Only Encounter Details Date Type Department Care Team (Late st Contact Info) Description 01/23/2014 2:45 PM EDT Office Visit Obstetrics [place] [address] Gricel Ortiz MD [facility]STETR[facility] [place] [address] History of premature rupture of membranes (PROM) in previous , currently , second trimester (Primary Dx) Discharge Disposition: Home Social History Tobacco Use Types Packs/Day Years Used Date Smoking Tobacco: Never Assessed Alcohol Use Standard Drinks/Week Comments Not Asked [...] - Inhaled Oxygen Concentration - - Weight 68.1 kg (150 lb 3.2 oz) 01/23/2014 3:15 P M EDT Height - - Body Mass Index - - documented in this encounter Progress Notes * Gricel Ortiz MD - 01/23/2014 6:22 PM EDT I saw and evaluated the patient with Dr. Huertas (resident). I have reviewed the resident's historyduring the visit and I agree with the details as written. My physical examination confirms the resident's findings. The assessment and plan were formulated in discussion with me at the time of the visit and I agree with them as documented. Pertinent History: 3 term births followed by a delivery at 34 weeks after premature rupture of membranes. Pertinent Exam: Appears generally well Ultrasound: Cephalic, normal fluid and placenta. EGA 19 4/7 weeks. Cervical length 3.6 cm without funneling. Major issues addressed: History of premature after PROM. Plan: I recommended that she take 17 hydroxyprogesterone caproate IM weekly until 36 weeks. The data support that this will reduce the risk of recurrent premature . I explained that this medicine has been used for approximately 10 years without apparent adverse effects to the baby or mother. Given the late I do not feel strongly that she have another ultrasound for cervical length. At this point I do not see a need to have her return, but we would be happy to see her again ifwe can provide any assistance. Gricel Ortiz MD * Rosales Huertas MD - 01/23/2014 3:30 PM EDT Maternal Medicine Consult Note Maris Owen is a 33 y.o. otherwise healthy with an MEREDITH of 06/26/2014 (by 6 wk ultrasound, discordant from LMP) who is at 18+0/7 wks gestation. She is seen in consultation at the request ofDanielito Morrell CNM for discussion of prior . She was seen today for maternal- medicine consultation and ultrasound evaluation. Record Review: normal labs History reviewed. No pertinent past medical history. History reviewed. No pertinent past surgical history. OB History Grav Para Term Abortions TAB SAB Ect Mult Living 9 4 4 1 3 4 # Outc Date GA Lbr Gato/2nd Wgt Sex Del Anes PTL Lv 1 PAR 41w0d 3.742kg(8lb4oz) F 2 PAR 01/26 37w5d 3.289kg(7lb4oz) F 3 PAR 08/02 39w2d 3.856kg(8lb8oz) M 4 PAR 05/05 34w0d 2.155kg(3pi61xt) F Comments: 34 +0/7 wks - PPROM, IOL without difficulty. 5 TAB 6 SAB Comments: no d+c 7 SAB Comments: no d+c 8 SAB Comments: no d+c 9 GRA A family history was obtained. There is no history of structural abnormalities, inheritable disease, learning disability, mental retardation, epilepsy, or repetitive loss. The ethnic backgrounds do not suggest a significantly increased genetic risk. History Social History ??? Marital Status: Spouse Name: N/A Number of Children: N/A ??? Years of Education: N/A Occupational History ??? Not on file. Social History Main Topics ??? Smoking status: Not on file ??? Smokeless tobacco: Not on file ??? Alcohol Use: Not on file ??? Drug Use: Not on file ??? Sexually Active: Yes -- Male partner(s) Other Topics Concern ??? Not on file Social History Narrative Lives at home with and 4 children. 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 works for [employer]. Current Outpatient Prescriptions Medication Sig Dispense Refill ? ? VITS W-CA,FE,FA,<1MG, ( VITAMIN ORAL) Take by mouth. No Known Allergies Review of Systems: 10 systems reviewed, otherwise negative Ultrasound Growth appropriate for gestational age EGA 18+0/7 weeks Amniotic fluid volume normal Placenta anterior Presentation cephalic Morphology: No structural abnormality or marker for aneuploidy Physical Exam General: alert, well appearing, in no apparent distress Abdomen: abdomen is soft without significant tenderness Uterus: soft, nontender, S=D Psychiatric: affect is appropriate. FHR: 150s Assessment and Recommendations: 33 y.o. Otherwise healthy at 18 +0/7 wks with history of single prior (PPROM at 34+0/7 wks), and 3 prior term vaginal deliveries. Ultrasound today normal, including normal cervical length. Recommend patient start IM progresterone (25-ehvek-ckedb xyprogesterone caproate (17OHPC)), 250mg IM once weekly, to continue until 36 weeks. Recommend patient consider repeat ultrasound for cervical length at 22 weeks, though given overall low risk for cervical insufficiency with 3 prior term births and normal cervical length today, she can forego this exam if she prefers. Otherwise, she can follow-up for routine obstetric care unless there are other concerns Patient seen/examined and plan formulated with Dr. Ortiz, Attending physician Rosales Huertas MD PGY4 I appreciate the opportunity to be involved in this patient's care, and am available if further questions should arise. Gricel Ortiz MD 01/23/2014 Cc: Danielito Morrell CNM documented in this encounter Miscellaneous Notes * Miscellaneous - Provider, Scanning - 02/27/2014 10:18 AM EDT * Addendum Note - Gricel Ortiz MD - 01/23/2014 6:52 PM EDTAddended by: GRICEL ORTIZ on: 01/23/2014 06:52 PM Modules accepted: Level of Service documented in this encounter Plan of Treatment Not on file documented as of this encounter Visit Diagnoses Diagnosis History of premature rupture of membranes (PROM) in previous , currently , second trimester- Primary documented in this encounter Care Teams Admitting Supervisor Relationship Specialty Start Date End Date Debra Rocha MD [address] [place] [address] PCP - General 01/18/14 documented as of this encounter
--- OUTSIDE RECORDS SUMMARY | 2024-02-14 15:44 | XMS_ITS | Encounter Summary ---
Author Organization [facility] Address [facility] [address] Care Team Providers Care Brand Specialist Name Role Phone Debra Rocha MD Primary Care Provider [phone] Encounter Details Date Type Department Care Team (Latest Contact Info) Description 08/18/2016 10:48 AM EST - 08/18/2016 11:59 PM [facility] Hospital [place] [address] Sly García MD [facility] OBSTETRICS & [place] [address] Maternal age > 35, multigravida, unspecified trimester Discharge Disposition: Home Social History Tobacco Use [...] Sig Dispensed Refills Start Date End Date VITS W-CA,FE,FA,<1MG, ( VITAMIN ORAL) Take by mouth. documented as of this encounter Plan of Treatment Not on file documented as of this encounter Procedures Procedure Name Priority Date/Time Associated Diagnosis Comments US OB DETAILED MORPHOLOGY Routine 08/18/2016 11:47 AM EST Maternal age > 35, multigravida, unspecified trimester documented in this encounter Results * US OB Detailed Morphology (08/18/2016 11:47 AM EST) Anatomical Region Laterality Modality Pelvis, Abdomen Ultrasound 08/18/2016 11:0 4 AM EST Impressions 08/18/2016 1:14 PM EST 2nd Trimester - Detailed Morphology - Summary Single intrauterine with a gestational age of 18w 4d based on LMP ??(04/10/16) Composite age based on the current ultrasound alone is 19w 2d. Current growth parameters are consistent with prior dating indicating normal growth. Amniotic fluid volume is Normal. ??Detailed anatomic evaluation was performed and no structural abnormalities are noted. I ??viewed the images and agree with the above interpretation. ? Sly García MD Electronically Signed Final Report ?? 08/18/2016 01:14 pm Narrative 08/18/2016 1:14 PM EST OBSTETRICS REPORT ?(Signed Final 08/18/2016 01:14 pm) PATIENT INFO: ID #: ? [id number] ?: ??[birth year] (35 yrs) Name: ? ARMANI Heart LUKE ?Visit Date: 08/18/2016 11:04 am PERFORMED BY: Performed By: ? Jeanne Oconnor RDMS Attending: ?Sly García MD ??Sally Referred By: ?HARVINDER CHE CNM Location: ? [place] SERVICE(S) PROVIDED: ??[facility] - Detailed Morphology - [id number] ? [id number] INDICATIONS: ??MATERNAL AGE, ANEA LELONG OB HISTORY: Blood Type: ?? A+ ? Height: ??5'5 ?? Weight: ?? 142 ? BMI: ??23.63 EVALUATION: Num Of Fetuses: ? 1 Heart ? 148 Rate(bpm): Cardiac Activity: ?? Observed, normal rhythm Presentation: ? Breech Placenta: ? Anterior P. Cord Insertion: ??Within Normal Limits Amniotic Fluid ABRAHAN FV: ?Normal --------- BIOMETRY: --------- BPD: ?43.9 ??mm ? G.Age: ?? 19w 2d OFD: ?58.4 ??mm HC: ?161.5 ??mm ? G.Age: ?? 19w 0d AC: ?139.2 ??mm ? G.Age: ?? 19w 2d FL: ? 30.1 ??mm ? G.Age: ?? 19w 2d HUM: ?28.6 ??mm ? G.Age: ?? 19w 2d CER: ?19.3 ??mm ? G.Age: ?? 18w 5d NFT: ? 3.6 ??mm NB: ? 5.89 ??mm LV: ?8.8 ??mm CM: ?3.8 ??mm CI: ?75.2 ??% ? 70 - 86 FL/HC: ? 18.6 ??% ? 16.1 - 18.3 HC/AC: ? 1.16 ?1.09 - 1.39 FL/BPD: ?68.6 ??% FL/AC: ? 21.6 ??% ? - Est. FW: ? 283 ?? gm ?? 0 lb 10 oz GESTATIONAL AGE: LMP: ? 18w 4d ?Date: ??04/10/16 ? MEREDITH: ?? 01/15/17 U/S Today: ? 19w 2d ?MEREDITH: ?? 01/10/17 Best: ?18w 4d ?? Det. By: ??LMP ??(04/10/16) ?MEREDITH: ?? 01/15/17 TARGETED ANATOMY: Central Nervous System Calvarium: ?Within Normal Limits Intracranial: ? Within Normal Limits Cavum: ?Within Normal Limits Lat. Ventricles: ?Within Normal Limits Cerebellum: ? Within Normal Limits Choroid Plexus: ? Within Normal Limits Cisterna Magna: ? Within Normal Limits Spine Cervical: ? Visualized Thoracic: ? Visualized Lumbar: ? Visualized Sacral: ? Visualized Head/Neck Face: ? Within Normal Limits Lips: ? Within Normal Limits Nuchal Fold: ?Within Normal Limits Eyes: ? Normal ??lens / orbits Neck: ? Within Normal Limits Profile: ?Visualized Thorax Thoracic Contour: ? Ribs appear normal Lungs: ?Visualized Four Chamber: ? Within Normal Limits Cardiac Motion: ? Normal Rhythm R Outflow Tract: ?Visualized L Outflow Tract: ?Visualized Aortic Arch: ?Visualized Cardiac Greig: ? Visualized 3 Vessel View: ?Visualized Diaphragm: ?Visualized Abdomen Ventral Wall: ? Visualized Stomach: ?Visualized Situs: ?Normal Liver: ?Visualized Lt Kidney: ?Visualized Rt Kidney: ?Visualized Bladder: ?Visualized Bowel: ?Visualized Extremities Lt Humerus: ? Within Nomal Limits Rt Humerus: ? Within Normal Limits Lt Forearm: ? Within Normal Limits Rt Forearm: ? Within Normal Limits Lt Hand: ?Within Normal Limits Rt Hand: ?Within Normal Limits Lt Femur: ? Within Normal Limits Rt Femur: ? Within Normal Limits Lt Lower Leg: ? Within Normal Limits Rt Lower Leg: ? Within Normal Limits Lt Foot: ?Visualized Rt Foot: ?Visualized Other Umbilical Cord: ? 3 vessel cord Genitalia: ?Female Cord Insertion: ? WIthin Normal Limits Comment: ? Nasal Bone: ?? Normal CERVIX UTERUS ADNEXA: Left Ovary Size(cm) ? 3.49 ?? x ?? 2.5 ?x ??2.38 ?Vol(ml): 10.9 Visualized Right Ovary Size(cm) ? 3.02 ?? x ?? 1.89 ?? x ??1.68 ?Vol(ml): 5.0 Visualized Procedure Note Sly García MD - 08/18/2016 OBSTETRICS REPORT (Signed Final 08/18/2016 01:14 pm) PATIENT INFO: ID #: [id number] : [birth year] (35 yrs) Name: ARMANI OWEN Visit Date: 08/18/2016 11:04 am PERFORMED BY: Performed By: Jeanne Oconnor RDMS Attending: Sly García MD Referred By: HARVINDER CHE [facility] Location: [place] SERVICE(S) PROVIDED: [facility] - Detailed Morphology - [id number] INDICATIONS: MATERNAL AGE, HARVINDER CHE OB HISTORY: Blood Type: A+ Height: 5'5 Weight: 142 BMI: 23.63 EVALUATION: Num Of Fetuses: 1 Heart 148 Rate(bpm): Cardiac Activity: Observed, normal rhythm Presentation: Breech Placenta: Anterior P. Cord Insertion: Within Normal Limits Amniotic Fluid ABRAHAN FV: Normal --------- BIOMETRY: --------- BPD: 43.9 mm G.Age: 19w 2d OFD: 58.4 mm HC: 161.5 mm G.Age: 19w 0d AC: 139.2 mm G.Age: 19w 2d FL: 30.1 mm G.Age: 19w 2d HUM: 28.6 mm G.Age: 19w 2d CER: 19.3 mm G.Age: 18w 5d NFT: 3.6 mm NB: 5.89 mm LV: 8.8 mm CM: 3.8 mm CI: 75.2 % 70 - 86 FL/HC: 18.6 % 16.1 - 18.3 HC/AC: 1.16 1.09 - 1.39 FL/BPD: 68.6 % FL/AC: 21.6 % 20 - 24 Est. FW: 283 gm 0 lb 10 oz GESTATIONAL AGE: LMP: 18w 4d Date: 04/10/16 MEREDITH: 01/15/17 U/S Today: 19w 2d MEREDITH: 01/10/17 Best: 18w 4d Det. By: LMP (04/10/16) MEREDITH: 01/15/17 TARGETED ANATOMY: Central Nervous System Calvarium: Within Normal Limits Intracranial: Within Normal Limits Cavum: Within Normal Limits Lat. Ventricles: Within Normal Limits Cerebellum: Within Normal Limits Choroid Plexus: Within Normal Limits Cisterna Magna: Within Normal Limits Spine Cervical: Visualized Thoracic: Visualized Lumbar: Visualized Sacral: Visualized Head/Neck Face: Within Normal Limits Lips: Within Normal Limits Nuchal Fold: Within Normal Limits Eyes: Normal lens / orbits Neck: Within Normal Limits Profile: Visualized Thorax Thoracic Contour: Ribs appear normal Lungs: Visualized Four Chamber: Within Normal Limits Cardiac Motion: Normal Rhythm R Outflow Tract: Visualized L Outflow Tract: Visualized Aortic Arch: Visualized Cardiac Greig: Visualized 3 Vessel View: Visualized Diaphragm: Visualized Abdomen Ventral Wall: Visualized Stomach: Visualized Situs: Normal Liver: Visualized Lt Kidney: Visualized Rt Kidney: Visualized Bladder: Visualized Bowel: Visualized Extremities Lt Humerus: Within Nomal Limits Rt Humerus: Within Normal Limits Lt Forearm: Within Normal Limits Rt Forearm: Within Normal Limits Lt Hand: Within Normal Limits Rt Hand: Within Normal Limits Lt Femur: Within Normal Limits Rt Femur: Within Normal Limits Lt Lower Leg: Within Normal Limits Rt Lower Leg: Within Normal Limits Lt Foot: Visualized Rt Foot: Visualized Other Umbilical Cord: 3 vessel cord Genitalia: Female Cord Insertion: WIthin Normal Limits Comment: Nasal Bone: Normal CERVIX UTERUS ADNEXA: Left Ovary Size(cm) 3.49 x 2.5 x 2.38 Vol(ml): 10.9 Visualized Right Ovary Size(cm) 3.02 x 1.89 x 1.68 Vol(ml): 5.0 Visualized IMPRESSION 2nd Trimester - Detailed Morphology - Summary Single intrauterine with a gestational age of 18w 4d based on LMP (04/10/16) Composite age based on the current ultrasound alone is 19w 2d. Current growth parameters are consistent with prior dating indicating normal growth. Amniotic fluid volume is Normal. Detailed anatomic evaluation was performed and no structural abnormalities are noted. I viewed the images and agree with the above interpretation. Sly García MD Electronically Signed Final Report 08/18/2016 01:14 pm E Salyl García MD IMG OB ORDERAB LES documented in this encounter Visit Diagnoses Diagnosis Maternal age > 35, multigravida, unspecified trimester documented in this encounter Care Teams Brand Specialist Relationship Specialty Start Date End Date Debra Rocha MD [facility] [address] [place] [address] PCP - General 01/18/14 documented as of this encounter
--- OUTSIDE RECORDS SUMMARY | 2024-02-14 15:44 | XMS_ITS | Encounter Summary ---
Author Organization [facility] Address [facility] [place] [address] Care Team Providers Care Sr. Manager Corporate Communications Name Role Phone Debra Rocha MD Primary Care Provider [phone] Encounter Details Date Type Department Care Team (Late st Contact Info) Description 08/20/2017 Telephone Dermatology at [facility] [address] [place] [address] Dk Begum MD [facility] [address] [place] [address] Social History Tobacco Use Types Packs/Day Years [...] encounter Miscellaneous Notes * Telephone Encounter - Dk Begum - 08/31/2017 4:45 PM EST Attempted to call Ms. Owen at 4:46 PM on 08/31/17. No answer. Left message. Plan to discuss phototherapy, and if patient is interested. If so, would send prescription for methoxsalen to [facility] pharmacy. [facility] with pharmac[facility] at [facility], who is going to look into it and ensure that they are able to compound the topical methoxsalen. Dk Begum MD Resident in Dermatology [facility] documented in this encounter Plan of Treatment Not on file documented as of this encounter Visit Diagnoses Not on filedocumented in this encounter Care Teams Sr. Manager Corporate Communications Relationship Specialty Start Date End Date Debra Rocha MD [address] [place] [address] PCP - General 01/18/14 documented as of this encounter
--- OUTSIDE RECORDS SUMMARY | 2024-02-14 15:44 | XMS_ITS | Clinical Summary ---
Author Organization [facility] Address [address] [place] [address] Care Team Providers Care Optical Lathe Operator Name Role Phone Debra Rocha MD Primary Care Provider [phone] Social History Tobacco Use Types Packs/Day Years Used Date Smoking Tobacco: Never Assessed Sex and Gender Information Value Date Recorded Sex Assigned at Not on file Gender Identity Not on file Sexual Orientation Not on file Plan of Treatment Health Maintenance Due Date Last Done Comments Hepatitis C Screen 1980 Hepatitis B Vaccine (1 of 3 - 19+ 3-dose series) 08/23 COVID-19 Vaccine ( season) 2023 Care Teams Optical Lathe Operator Relationship Specialty Start Date End Date Debra Rocha MD [address] [facility] [address] [place] [address] PCP - General 01/23/21
--- OUTSIDE RECORDS SUMMARY | 2024-02-14 15:44 | XMS_ITS | Encounter Summary ---
Author Organization [facility] Address [facility] [place] [address] Care Team Providers Care Larry Car Operator Name Role Phone Debra Rocha MD Primary Care Provider [phone] Reason for Visit * Reason Comments Rash Encounter Details Date Type Department Care Team (Late st Contact Info) Description 05/16/2018 1:45 PM EDT Office Visit Dermatology at [address] [address] Stephane Magana MD [facility] [place] [address] Dermatitis (Primary Dx); Encounter for allergy testing Social History Tobacco Use Types Packs/Day Years [...] Progress Notes * Stephane Magana MD - 05/16/2018 1:45 PM EDT Images from the original note were not included. Visit For: Patch Test application History of Present Illness Maris Owen is a 37 y.o. female. History of atopic dermatitis generalized on the body here for patch testing application. She reports that today is a good day, but she has not recently been treating with any topical steroid. Antecedent History: History of atopic dermatitis since [...] Patient is . Never been biopsied. Interval changes to Medications and Medical, Family and Social Histories (including alcohol and tobacco use) Since Last Visit 12/24/17: No significant interval history. Allergies Patient has no known allergies. Medications has a current medication list which includes the following prescription(s): betamethasone (augmented), clobetasol, hydrocortisone, tacrolimus, and vit calc,iron,folic. Review of Systems Significant for no pertinent and acute changes in constitutional, other skin, respiratory, allergy systems upon specific queries. Examination Standby: Tasya Daniel Mood is appropriate. Well developed, well-nourished in no apparent distress, alert and oriented to time, person, place and situation. Examination of the back significant for the following: ?? [place] patches and papules on the upper back and lower back Assessment and Plan Dermatitis / Encounter for Patch Testing Previously Extensively Counseled [Verbal and Written]: Patch testing's use for determining potential allergens the skin is in contact with that may be contributing to current dermatitis, limitations and benefits, reasons for testing for suspected and unsuspected allergens. Reviewed procedure, time course and application method. Explained typical potential allergic reactions as well as potential adverse reactions, including but not limited to common AEs such as itching/irritation/blistering fromthe tape as well as rare AEs, such as hives, shortness of breath or development of an allergy to something tested; headache, chest pain, joint aching, fever, or any other systemic symptoms are NOT ass ociated with patch testing, and if pt develops any of these he should seek immediate medical care. Discussed potential for flare-up of patient's dermatitis on previously-affected skin during the testing which seems to occur more frequently if relevant positive reactions develop during testing. Discussed expectations for the final patch visit: after the tests are interpreted on Wednesday I will discuss the results in-depth. An information sheet about contact allergy will be given summarizing the positive results. For each allergic reaction, the patient will receive an information sheet reviewing the allergen name, synonyms, potential cross-reacting chemicals, possible exposure sources, and potential alternative products as needed. Answered all questions. Patient verbally expressed understanding and gave verbal consent to initiate the patch testing procedure. Panels applied and panels outlined in purple skin marker. Patch Test Name: ESTEPHANIA Patch testing Number of Allergens Applied: 70 Location of Application of Panels: Back Applied By: Nandini Gómez LPN Counseled: keep back dry until after Wednesday visit. Follow-up: Two (2) days for patch test removal and 2d interpretation Note initiated by Meenakshi Sanchez has performed the documentation for this encounter in the presence of and acting as a scribe for Dr. Magana. I performed the above scribed service and agree with the accuracy of the documentation in this encounter. Stephane Magana MD [facility] Section of Dermatology [facility] documented in this encounter Plan of Treatment Not on file documented as of this encounter Visit Diagnoses Diagnosis Dermatitis- Primary Contact dermatitis and other eczema, due to unspecified cause Encounter for allergy testing Diagnostic skin and sensitization tests documented in this encounter Care Teams Larry Car Operator Relationship Specialty Start Date End Date Debra Rocha MD [facility] [address] [place] [address] PCP - General 01/18/14 documented as of this encounter
--- OUTSIDE RECORDS SUMMARY | 2024-02-14 15:44 | XMS_ITS | Encounter Summary ---
Author Organization [facility] Address [address] [place] [address] Care Team Providers Care Beverage Distiller Name Role Phone Unavailable Primary Care Provider Unavailabl e Encounter Details Date Type Department Care Team (Late st Contact Info) Description 10/12/2008 Before PRISM Converted Visit (Maple) [facility] - Maple conversion [address] [place] [address] Debra Vigil MD [address] [place] [id number] Social History Tobacco Use Types Packs/Day Years Used Date Smoking Tobacco: Never Assessed Sex and Gender Information Value Date Recorded Sex Assigned at Not on file Gender Identity Not on file Sexual Orientation Not on file documented as of this encounter Plan of Treatment Not on file documented as of this encounter Procedures Procedure Name Priority Date/Time Associated Diagnosis Comments CYTOPATHOLOGY Routine 10/12/2008 0:00 EDT documented in this encounter Results * CYTOPATHOLOGY (10/12/2008 0:00 EDT) Pathology Report: CYTOPATHOLOGY REPORT ? Reports generated via electronic interface contain original data; ? however they are lacking the format of the original report. ? Caution should be taken when reading/interpreti ng unformatted reports. ? Name: ? ARMANI OWEN ? Accession #: ? [id number] ? : ? 1980 (Age: 28) ??F ?Collect Date: ? 10/12/2008 ? Location: ? [facility] ? Receive Date: ? 10/16/2008 ? Provider: ?DEBRA VIGIL MD ? Copy to: ? Specimen/Source: ?Pap Test, Cervix/Endocervix, ThinPrep Imaging System ? with manual evaluation ? Last Menstrual Period: ? 02/22/09 ? Other: ? HPVA - HPV testing requested if ASC-US on the current ThinPrep Pap test. ? SPECIMEN ADEQUACY ? Satisfactory for Evaluation ? - transformation zone component present ? GENERAL CATEGORIZATION ? Negative for Intraepithelial Lesion or Malignancy ? Document reviewed and electronically signed by: ? Nancy Vasquez, CT(ASCP)(IAC) ? Report Date: ??10/17/2008 14:49 ? End of Report ? ALISSA OVIEDO 10/12/2008 10/16/2008 Debra Vigil MD PATHOLOGY ORDERABLES ALISSA OVIEDO [address] [place] [address] documented in this encounter Visit Diagnoses Not on filedocumented in this encounter
--- OUTSIDE RECORDS SUMMARY | 2024-02-14 15:44 | XMS_ITS | Encounter Summary ---
Author Organization [facility] Address [address] [place] [address] Care Team Providers Care School Psychologist Assistant Name Role Phone Unknown, Provider Primary Care Provider [phone] Debra Rocha MD Primary Care Provider [phone] Encounter Details Date Type Department Care Team (Latest Contact Info) Description 10/22/2020 Lab Requisition [facility] Pathology & Laboratory Medicine - [facility] [address] [place] [address] Debra Rocha MD [address] [place] [phone] Encounter for general adult medical examination without abnormal findings; Encounter for screening for malignant neoplasm of cervix; Encounter for screening for human papillomavirus (HPV) Social History Tobacco Use Types Packs/Day Years Used Date Smoking Tobacco: Never Assessed Sex and Gender Information Value Date Recorded Sex Assigned at Not on file Gender Identity Not on file Sexual Orientation Not on file documented as of this encounter Plan of Treatment Not on file documented as of this encounter Procedures Procedure Name Priority Date/Time Associated Diagnosis Comments PAP TEST Today 10/21/2020 13:30 EDT Encounter for general adult medical examination without abnormal findings Encounter for screening for malignant neoplasm of cervix Encounter for screening for human papillomavirus (HPV) HPV DNA DETECTION WITH GENOTYPING, PCR Today 10/21/2020 13:30 EDT Encounter for general adult medical examination without abnormal findings Encounter for screening for malignant neoplasm of cervix Encounter for screening for human papillomavirus (HPV) documented in this encounter Results * HUMAN PAPILLOMAVIRUS (HPV) DETECTION-HIGH RISK TYPES (10/21/2020 13:30 EDT) HPV other High Risk types, PCR Negative Negative 10/31/2020 14:58 [facility] Comment:No E6 or E7 mRNA is detected from HPV types 16,18,31,33,35,39,45,51,52,56,58,59,66, and 68 by waiter/waitress formal mediated amplification. Papanicolaou smear specimen (specimen) CERVIX UTERI STRUCTURE / Unknown 10/21/2020 13:30 EDT 10/30/2020 15:00 EDT Debra Rocha MD MICROBIOLOGY - GENER AL ORDERABLES [facility] [address] [place] [address] * PAP TEST (10/21/2020 13:30 EDT) Specimens A. Cervix and/or Endocervix , ThinPrep Imaging System with Manual Evaluation 10/31/2020 14:58 [facility] Specimen Adequacy Satisfactory for Evaluation - transformation zone component present 10/31/2020 14:58 [facility] General Categorization Negative for intraepithelial lesion or malignancy 10/31/2020 14:58 [facility] Descriptive Diagnosis Reactive cellular changes associated with inflammation present (includes repair). 10/31/2020 14:58 [facility] Attestation By the signature below, the attending physician certifies that they have personally conducted a gross and/or microscopic examination of the described specimens and rendered or confirmed the above diagnosis. 10/31/2020 14:58 [facility] at 1458 Clinical History See below 11/01/19 14:58 [facility] HPV The result for the Human Papillomavirus (HPV) Detection-High Risk Types is Negative. No E6 or E7 mRNA is detected from HPV types 16,18,31,33,35,39 ,45,51,52,56,58,5 9,66, and 68 by waiter/waitress formal mediated amplification.Suzanne ting was performed on specimen [id number] and was resulted on 10/31/2020 1453 EDT by PITA, LAB INSTRUMENT RESULTS IN 10/31/2020 14:58 EDT [facility] Performing Lab [facility] 10/31/2020 14:58 EDT [facility] Scanned Images 10/31/2020 14:58 EDT [facility] Papanicolaou smear specimen (specimen) CERVIX UTERI STRUCTURE / Unknown 10/21/2020 13:30 EDT 10/22/2020 15:14 EDT Debra Rocha MD PATHOLOGY ORDERABLES Performing Organization Address City/State/[facility] Co de Phone Number [facility] [address] [place] [address] documented in this encounter Visit Diagnoses Diagnosis Encounter for general adult medical examination without abnormal findings Unspecified general medical examination Encounter for screening for malignant neoplasm of cervix Screening for malignant neoplasm of the cervix Encounter for screening for human papillomavirus (HPV) Special screening examination for human papillomavirus (HPV) documented in this encounter Care Teams School Psychologist Assistant Relationship Specialty Start Date End Date Unknown, Provider, PCP - General 06/01/15 01/22/21 Debra Rocha MD [address] [place] [phone] PCP - General 01/23/21 documented as of this encounter
--- OUTSIDE RECORDS SUMMARY | 2024-02-14 15:44 | XMS_ITS | Continuity of Care Document ---
Author Name DOD-ND Organization D[facility] Care Team Providers Care Yarn Skeins Examiner Name Role Phone DOD-ND Unavailable Unavailable Procedures Combined list of: 1) Procedures from Department of Veterans Affairs facilities going back up to thelast 18 months, not all VA non-surgical procedures are included; 2) All procedures from the Department of Defense facilities. Procedure Procedure Type Code Date Perfomer Comments [facility] DOPPLER ECHOCARDIOGRAPHY, , PULSED WAVE AND/OR CONTINUOUS WAVE WITH SPECTRAL DISPLAY; COMPLETE 10/12/2003 [facility] DOPPLER ECHOCARDIOGRAPHY, , PULSED WAVE AND/OR CONTINUOUS WAVE WITH SPECTRAL DISPLAY; COMPLETE 09/14/2003 [facility] ULTRASOUND, TRANSVAGINAL 08/08/2003 [facility] PHYS/OTH QUALIFIED HEALTH MANAGER STORE QUALIFIED,EDUCATION,TRAIN,LIC ENSURE/REGULATION (WHEN APPLICABLE) EDUC SER RENDERED TO PATS IN A GRP SETTING (EG,,OBESITY,OR DIABETIC INSTRUCT) 07/12/2003 [facility] THERAPEUTIC PROCEDURE, 1 OR MORE AREAS, EACH 15 MINUTES; THERAPEUTIC EXERCISES TO DEVELOP STRENGTH AND ENDURANCE, RANGE OF MOTION AND FLEXIBILITY 01/24/2002 [facility] RANGE OF MOTION MEASUREMENTS AND REPORT (SEPARATE PROCEDURE); EACH EXTREMITY (EXCLUDING HAND) OR EACH TRUNK SECTION (SPINE) 01/10/2002 [facility] Social History Combined list of available smoking, tobacco, and other social history from Department of Defense and Veterans Affairs facilities. Social History Type Response Date Comment [facility] ignacio This section is an empty social history section. DoD
--- OUTSIDE RECORDS SUMMARY | 2024-02-14 15:44 | XMS_ITS | Encounter Summary ---
Author Organization [facility] Address [facility] [place] [address] Care Team Providers Care Advertising Vice President Name Role Phone Debra Rocha MD Primary Care Provider [phone] Reason for Visit * Reason Comments Skin Lesion * Consultation (Routine) - Specialty Diagnoses / Procedures Referred By Jailene poon Referred To Contact Dermatology Diagnoses Dermatitis, unspecified Impetigo, unspecified Procedures Eczema / Impetigo Debra Rocha MD [facility] RADHIKA [address]O [address] [place] [address] [facility] Dermatology [address] [place] [address] Referral ID Status Reason Start Date Expiration Date V isits Requested Visits Authorized [id number] 06/30/2017 06/30/2018 1 1 Encounter Details Date Type Department Care Team (Late st Contact Info) Description 08/19/2017 10:20 AM EST Office Visit Dermatology at [address] [place] [address] Dk Begum MD [facility] [address] BERNARD[place] [address] Atopic dermatitis, unspecified type Social History Tobacco Use Types Packs/Day Years [...] PM EDT documented as of this encounter Patient Instructions * Patient Instructions* Dk Begum - 08/19/2017 10:20 AM EST - Minimize hand washing and use hand after school coordinator with moisturizer (e.g., Avagard) - For hands, continue to use Vanicream - At night time, apply ointment (steroid or vaseline), then cover with white cotton gloves - We will send message to Dr. Campbell to try to arrange phototherapy - Rx: Tacrolimus (protopic) ointment - apply to face twice daily - Rx: Augmented diprolene ointment - Apply to itchy/affected areas twice daily as needed. Use for up to 2 weeks, then take 1 week off; repeat as needed. - Could consider patch testing in the future, if desired documented in this encounter Progress Notes * Dk Begum - 08/19/2017 10:20 AM EST Images from the original note were not included. DERMATOLOGY - NEW PATIENT NOTE Date of service: 08/19/2017 Maris Owen : 1980, 36 y.o. Chief Complaint: Chief Complaint Patient presents with ??? Skin Lesion HPI: Maris Owen is a 36 y.o. female referred by Debra Rocha with the following concerns: Eczema on hands and face currently treating with hydrocortisone on her face and clobetasol twice daily when flaring. Eczema clears when using her topicals but returns if she stops using. She is currently and concerned about continued steroid use. Face was recently infected. Treated with bactrim with resolution. Eczema on hands and face is persistent. She was prick tested ~1 year ago, followed by serum allergy testing. She has never been patch tested. Relevant Skin History: - Okay to leave detailed message with results? 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 ? VITS W-CA,FE,FA,<1MG, ( VITAMIN ORAL) Take by mouth. No current facility-administered medications for this visit. Allergies: No Known Allergies Review of Systems: - General: Feels well. - Skin: No other skin concerns. Examination: - Constitutional: Patient was alert, well-appearing and in no noticeable distress. - Skin: Skin examination of the face and hands Diagnosis/Skin findings/Assessment/Plan: 1. Atopic dermatitis - Face: Thin pink eczematous plaques on upper lip, around nose, eyelids. Dorsal hands: lichenified fissured eczematous plaques - Encouraged patient to minimize hand washing and use hand after school coordinator with moisturizer (e.g., Avagard) - For hands, continue to use Vanicream; has also tried CeraVe - At night time, apply ointment (steroid or vaseline), then cover with white cotton gloves - If patient continues to have secondary impetigo, consider bleach baths 1-2 times weekly. - Message sent to Dr. Campbell to arrange phototherapy, if possible - Rx: Tacrolimus (protopic) ointment - apply to face twice daily - Rx: Augmented diprolene ointment - Apply to itchy/affected areas twice daily as needed. Use for up to 2 weeks, then take 1 week off; repeat as needed. - Could consider patch testing in the future, if desired RTC: PRN for eczema f/u The following photos were obtained with patient consent: Note initiated by Barbara Cabello LPN. - I am documenting this encounter acting as the scribefor and in the presence of Dk Begum MD. I performed the above scribed service and agree with the accuracy of the documentation in this encounter. Reviewed and signed by Dk Begum MD Resident in Dermatology [facility] Patient seen in conjunction with staff pencil maker: Danita Givens MD Section of Dermatology [facility] * Danita Givens MD - 08/19/2017 10:20 AM EST I directly supervised Dr. Dk Begum during this office visit. Dr. Begum presented the history and physical exam to me. I then saw and examined this patient with Dr. Begum. We reviewed the history and pertinent details and I confirmed the physical findings. I agree with the details of the history and physical exam as documented in Dr. Begum's note. DANITA GIVENS MD Staff Physician documented in this encounter Plan of Treatment Not on file documented as of this encounter Visit Diagnoses Diagnosis Atopic dermatitis, unspecified type documented in this encounter Care Teams Advertising Vice President Relationship Specialty Start Date End Date Debra Rocha MD [address] [place] [address] PCP - General 01/18/14 documented as of this encounter
--- OUTSIDE RECORDS SUMMARY | 2024-02-14 15:44 | XMS_ITS | Encounter Summary ---
Author Organization [facility] Address [facility] [place] [address] Care Team Providers Care Mail Messenger Name Role Phone Debra Rocha MD Primary Care Provider [phone] Reason for Visit * Reason Comments Advanced Maternal Age * Consultation (Routine) - Closed Specialty Diagnoses / Procedures Referred By Jailene poon Referred To Contact Genetics / Obstetrics and Gynecology Diagnoses MATERNAL AGE Procedures FULL SLOT Tiffanie Dimas, RACHELL [address] [place] [address] [facility] Attendant [address] [place] [address] Referral ID Status Reason Start Date Expiration Date Visits Re quested Visits Authorized [id number] Closed 08/11/2016 08/11/2017 2 2 Encounter Details Date Type Department Care Team (Late st Contact Info) Description 08/18/2016 10:15 AM EST Office Visit Obstetrics [place] [address] Keyonna Gonzalez, [facility] [place] [address] AMA (advanced maternal age) primigravida 35+, first trimester; with history of multiple loss; Encounter for genetic counseling Social History Tobacco Use Types Packs/Day Years [...] as of this encounter Progress Notes * Keyonna Gonzalez, MS - 08/18/2016 10:15 AM EST Maris Owen is a 35 y.o. female currently at 18w4d gestation. She was referred to the Diagnosis Program by Tiffanie Dimas CNM. I met with Maris for face to face 20 minute genetic counseling visit. She was arruved 30 minutes late, [facility] [place] Chief Complaint Patient presents with ??? Advanced Maternal Age Obstetric History T3 TAB1 SAB3 E0 M0 L5 # Outcome Date GA Lbr Gato/2nd Weight Sex Delivery Anes PTL Lv 10 Current 9 TAB 09/2015 8 05/05/11 34w0d 2.155 kg (4 lb 12 oz) F Vag-Spont 7 Term 08/05/07 39w2d 3.856 kg (8 lb 8 oz) M Vag-Spont 6 Term 02/04/04 37w5d 3.289 kg (7 lb 4 oz) F Vag-Spont 5 Term 05/11/00 41w0d 3.742 kg (8 lb 4 oz) F Vag-Spont 4 Para M Y 3 SAB 7w0d 2 SAB 6w0d 1 SAB 8w0d Patient's last menstrual period was 04/10/2016. Estimated Date of Delivery: 01/15/17 based on LMP No past medical history on file. Family History Problem (# of Occurrences) Relation (Name,Age of Onset) Anxiety Disorder (1) Mother Arthritis (1) Father of Baby (Martin) Depression (1) Mother Eye Disorder (4) Father: retinitis pigmentosa on father's side of family - patient tested negative,Sister: Retinitis pigmentosa, Brother: Retinitis pigmentosa, Brother: Retinitis pigmentosa The reported family history was otherwise unremarkable for intellectual disability, congenital anomalies, recurrent loss, or known genetic conditions. A pedigree was obtained and will be scanned into Maris's electronic medical record. Maris is of Seneg[place]e, [place]ian, [place], Irish [place] d[place] ancestry. Martin is of , Irish ancestry. Consanguinity is denied. Screening Results Test Result ??? Aneuploidy screen Declined ??? Cystic fibrosis carrier screen Not discussed today ??? Thalassemia screen MCV within normal limits (90.5 fL) Assessment: Maternal Age: We discussed the implications of advancing maternal age and Maris Owen's age related risk for aneuploidy in a montelongo . We discussed the screening and diagnostic testing options that are available. The screening options include non- invasive testing and u ltrasound. The diagnostic tests include chorionic villus sampling (CVS) and amniocentesis. We touched on each of their risks, benefits, and limitations. The couple declines all except the ultrasound today.If a concern is raised we will revisit the option of testing. Maris shared that they would not consider termination. 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 At least 10-15% of recognized pregnancies end in miscarriage with most losses occurring in the first trimester. Recurrent loss is typically defined as 2-3 or more consecutive losses. In approximately 3-5% of couples with recurrent loss, one partner will have a genetically balanced structural chromosome rearrangement, such as a balanced translocation or inversion. In addition to an increased risk for miscarriage, these rearrangements may also lead to an increased risk for children with congenital anomalies and/or mental retardation due to an unbalanced chromosome abnormality. The option of blood chromosome testing was offered and declined today. Plan: Following our visit, Maris Owen had a morphology ultrasound and maternal- medicine consultation with Dr. Nick García. Please refer to her note for further details and recommendations. documented in this encounter Plan of Treatment Not on file documented as of this encounter Visit Diagnoses Diagnosis AMA (advanced maternal age) primigravida 35+, first trimester with history of multiple loss Recurrent loss, unspecified as to episode of care or not applicable Encounter for genetic counseling Genetic counseling documented in this encounter Care Teams Mail Messenger Relationship Specialty Start Date End Date Debra Rocha MD [facility] RADHIKA ROMO [facility] [address] [place] [address] PCP - General 01/18/14 documented as of this encounter
--- OUTSIDE RECORDS SUMMARY | 2024-02-14 15:44 | XMS_ITS | Encounter Summary ---
Author Organization [facility] Address [address] [place] [address] Care Team Providers Care Product Safety Manager Name Role Phone Unavailable Primary Care Provider Unavailabl e Encounter Details Date Type Department Care Team (Late st Contact Info) Description 06/01/2005 Results Only [facility] - [facility] conversion [address] [place] [address] Lucy Singh, [facility] [address] [place] [phone] Social History Tobacco Use Types Packs/Day Years Used Date Smoking Tobacco: Never Assessed Sex and Gender Information Value Date Recorded Sex Assigned at Not on file Gender Identity Not on file Sexual Orientation Not on file documented as of this encounter Plan of Treatment Not on file documented as of this encounter Procedures Procedure Name Priority Date/Time Associated Diagnosis Comments CYTOPATHOLOGY Routine 06/01/2005 0:00 EST documented in this encounter Results * CYTOPATHOLOGY (06/01/2005 0:00 EST) Pathology Report: CYTOPATHOLOGY REPORT Reports generated via electronic interface contain original data; however they are lacking the format of the original report. Caution should be taken when reading/interpreti ng unformatted reports. Name: ? ARMANI OWEN ? Accession #: ? [id number] : ? 1980 (Age: 24) ??F ?Collect Date: ? 06/01/2005 Location: ? [facility] ? Receive Date: ? 06/03/2005 Provider: ?LUCY SINGH NEUROLOGY SPECIALIST Copy to: ? Specimen/Source: ?ThinPrep Pap Test, Cervix/Endocervix, processed on [employer] ThinPrep Imaging System, with manual evaluation Last Menstrual Period: ? 05/20/05 Other: ? HPVA - HPV testing requested if ASC-US on the current ThinPrep Pap test. ? SPECIMEN ADEQUACY ? Satisfactory for Evaluation - transformation zone component present GENERAL CATEGORIZATION ? Negative for Intraepithelial Lesion or Malignancy ? Document reviewed and electronically signed by: ? KALLIE Meredith(ASCP) ? Report Date: ??06/09/2005 08:19 End of Report ALISSA OVIEDO 06/01/2005 06/03/2005 Lucy Singh NEUROLOGY SPECIALIST PATHOLOGY ORDERABLES Performing Organization Address City/State/[facility] Co de Phone Number ALISSA OVIEDO [address] [place] [address] documented in this encounter Visit Diagnoses Not on filedocumented in this encounter
--- OUTSIDE RECORDS SUMMARY | 2024-02-14 15:44 | XMS_ITS | Encounter Summary ---
Author Organization [facility] Address [address] [place] [address] Care Team Providers Care Cattle Tester Name Role Phone Debra Rocha MD Primary Care Provider [phone] Encounter Details Date Type Department Care Team (Late st Contact Info) Description 02/19/2021 Lab Requisition [facility] Pathology & Laboratory Medicine - [address] [address] Emeterio Kim, DNP [address] [place] [address] Encounter for other general examination Social History Tobacco Use Types Packs/Day Years Used Date Smoking Tobacco: Never Assessed Sex and Gender Information Value Date Recorded Sex Assigned at Not on file Gender Identity Not on file Sexual Orientation Not on file documented as of this encounter Plan of Treatment Not on file documented as of this encounter Procedures Procedure Name Priority Date/Time Associated Diagnosis Comments SURGICAL PATHOLOGY Today 02/18/2021 15 :13 EDT Encounter for other general examination documented in this encounter Results * SURGICAL PATHOLOGY (02/18/2021 15:13 EDT) Note to Patient The following pathology results have been interpreted by your pathologist and may be available to you before your health provider has had the opportunity to review them. Please allow time for your provider to receive these results and explore management options, if applicable. 02/21/2021 10:33 EDT [facility] Final Diagnosis A. SKIN OF BUTTOCKS, RIGHT, PUNCH BIOPSY: - Subacute spongiotic dermatitis. See microscopic and comment. 02/21/2021 10:33 [facility] Diagnosis Comment The overall findings favor an eczematous dermatitis. Given the scattered dyskeratosis, irritant dermatitis would also be a consideration. 02/21/2021 10:33 [facility] Attestation By the signature below, the attending physician certifies that they have 1) personally conducted a gross and/or microscopic examination of the described specimen(s), and/or personally interpreted the results of laboratory testing of the described specimen(s), and 2) personally rendered or confirmed the above diagnosis. 02/21/2021 10:33 [facility] at [address]33 Microscopic Description There is orthohyperkeratosis and parakeratosis. The epidermis is hyperplastic with elongate and thickened rete ridges. There is a variable degree of spongiosis with exocytosis of lymphocytes. A rare dyskeratotic keratinocytes is noted. Within the dermis, there is a moderately dense superficial perivascular infiltrate. The infiltrate is composed of lymphocytes and histiocytes with eosinophils. A PAS stain is performed and shows no evidence of fungal organisms 02/21/2021 10:33 [facility] Clinical History Spreading plaque on right buttocks; punch biopsy completed 02/21/2021 10:33 [facility] Gross Description A. Received in formalin labelled with proper patient identification (initials B, J) and right buttocks is a punch biopsy of granular, hayden-white skin (0.5 cm in diameter by 0.2 cm in depth). The specimen is submitted intact in A1. ARMEN SARMIENTO(ASCP) 02/19/2021 16:21 02/21/2021 10:33 [facility] Performing Lab [facility] 02/21/2021 10:33 [facility] Scanned Images 02/21/2021 10:33 [facility] Tissue TISSUE SPECIMEN FROM SKIN / Unknown 02/18/2021 15:13 EDT 02/19/2021 15:42 EDT Emeterio Ricks [facility] PATH[facility] ORDERAB LES [facility] [address] [place] [address] documented in this encounter Visit Diagnoses Diagnosis Encounter for other general examination documented in this encounter Care Teams Cattle Tester Relationship Specialty Start Date End Date Debra Rocha MD [address] [place] [phone] PCP - General 01/23/21 documented as of this encounter
--- OUTSIDE RECORDS SUMMARY | 2024-02-14 15:44 | XMS_ITS | Encounter Summary ---
Author Organization Formerly [place] [address] Care Team Providers Care Facilities Assistant Name Role Phone Debra Rocha MD Primary Care Provider [phone] Encounter Details Date Type Department Care Team (Latest Contact Info) Description 01/23/2014 2:08 PM EDT - 01/23/2014 11:59 PM EDT Hospital [place] [address] History of premature delivery, second trimester Social History Tobacco Use Types Packs/Day Years [...] as of this encounter Plan of Treatment Pending Results Name Type Priority Associated Diagnoses Date /Time US OB Targeted Morphology Imaging Routine 01/23/2014 2:08 PM EDT Scheduled Orders Name Type Priority Associated Diagnoses Orde r Schedule US OB Targeted Morphology Imaging Routine Once PRN (for Ra diant use) for 1 Occurrences starting 01/23/2014 until 01/23/2014 documented as of this encounter Procedures Procedure Name Priority Date/Time Associated Diagnosis Comments US OB DETAILED MORPHOLOGY Routine 01/23/2014 2:58 PM EDT documented in this encounter Results * US OB Targeted Morphology (01/23/2014 2:58 PM EDT) Anatomical Region Laterality Modality Pelvis, Abdomen Ultrasound 01/23/2014 2:58 PM EDT Narrative 01/23/2014 3:28 PM EDT ?OBSTETRICS REPORT ? (Signed Final 01/23/2014 03:27 pm) Patient Info ID: ? [id number] ? : ??[birth year] (33 yrs) Name: ? ARMANI RABAGO ? Visit Date: 01/23/2014 02:48 pm Performed By Performed By: ?Lucy Corbin RDMS Attending: ? Gricel Ortiz MD Referred By: ? GRICEL ORTIZ MD Service(s) Provided [facility] - Targeted Morphology - Genetics - ? [id number] UOBTV - Viability - Cervical Length - Transvaginal - ??[id number] Indications r/o anomalies; Cervical Length, from ACC. [id number] per Gricel Ortiz MD. Evaluation Num Of Fetuses: ?1 Heart Rate: ??159 ?bpm Cardiac Activity: ??Observed, normal rhythm Presentation: ?Cephalic Placenta: ?Anterior P. Cord ?Within Normal Limits Insertion: Amniotic Fluid ABRAHAN FV: ?Appropriate for gestational age -------- Biometry -------- BPD: ?45.3 ??mm ?G. Age: ?? 19w 5d OFD: ?58.6 ??mm HC: ?166.8 ??mm ?G. Age: ?? 19w 3d AC: ?146.8 ??mm ?G. Age: ?? 20w 0d FL: ? 29.6 ??mm ?G. Age: ?? 19w 1d HUM: ?29.9 ??mm ?G. Age: ?? 19w 6d CER: ?17.9 ??mm ?G. Age: ?? 17w 6d NFT: ? 4.4 ??mm NB: ?4.2 ??mm CI: ?77.3 ??% ? 70 - 86 FL/HC: ? 17.7 ??% ? 16.1 - 18.3 HC/AC: ? 1.14 ?1.09 - 1.39 FL/BPD: ?65.3 ??% FL/AC: ? 20.2 ??% ? 20 - 24 Est. FW: ? 300 ?? gm ?? 0 lb 11 oz Gestational Age Clinical MEREDITH: ??19w 3d ?MEREDITH: ?? 06/16/14 U/S Today: ? 19w 4d ?MEREDITH: ?? 06/15/14 Best: ?19w 3d ?? Det. By: ??Clinical MEREDITH ? MEREDITH: ?? 06/16/14 Targeted Anatomy Central Nervous System Calvarium: ?Within Normal Limits Intracranial: ? Within Normal Limits Lat. Ventricles: ?Within Normal Limits Cerebellum: ? Within Normal Limits Choroid Plexus: ? Within Normal Limits Cisterna Magna: ? Within Normal limits Spine Cervical: ? Visualized Thoracic: ? Visualized Lumbar: ? Visualized Sacral: ? Visualized Head/Neck Face: ? Within Normal Limits Nuchal Fold: ?Within Normal Limits Eyes: ? Visualized Thorax Four Chamber: ? Within Normal Limits Cardiac Motion: ? Normal Rhythm R Outflow Tract: ?Visualized L Outflow Tract: ?Visualized Aortic Arch: ?Visualized Ductal Arch: ?Visualized Cardiac Goodman: ? Visualized Diaphragm: ?Visualized Abdomen Ventral Wall: ? Visualized Stomach: ?Visualized Lt Kidney: ?Visualized Rt Kidney: ?Visualized Bladder: ?Visualized Extremities Lt Humerus: ? Visualized Rt Humerus: ? Visualized Lt Forearm: ? Visualized Rt Forearm: ? Visualized Lt Hand: ?Visualized Rt Hand: ?Visualized Lt Femur: ? Visualized Rt Femur: ? Visualized Lt Lower Leg: ? Visualized Rt Lower Leg: ? Visualized Lt Foot: ?Visualized Rt Foot: ?Visualized Other Umbilical Cord: ? 3 vessel cord Cord Insertion: ? WIthin Normal Limits Comment: ? Nasal Bone: Visualized Cervix Uterus Adnexa Cervical Length: ? 3.6 ?cm Cervix: ?Closed; No change with fundal pressure Left Ovary: ?Not visualized Right Ovary: ?? Not visualized Impression 2nd Trimester - Targeted Morphology- Summary Single intrauterine with a gestational age of 18w 0d based on clinical MEREDITH. Composite age based on the current ultrasound alone is 19w 4d. Amniotic fluid volume is appropriate for gestational age. Current growth parameters are consistent indicating normal growth. Detailed anatomic evaluation was performed and no structural abnormalities are noted. Transvaginal imaging was performed to evaluate cervical length. ??The cervix is closed with no dynamic change demonstrated. I ??viewed the images and agree with the above interpretation. Thank you for allowing us to participate in the care of ARMANI RABAGO. Please do not hesitate to call if you have any questions. ? Gricel Ortiz MD Electronically Signed Final Report ?? 01/23/2014 03:27 pm Procedure Note Gricel Ortiz MD - 01/23/2014 OBSTETRICS REPORT (Signed Final 01/23/2014 03:27 pm) Patient Info ID: [id number] : [birth year] (33 yrs) Name: ARMANI RABAGO Visit Date: 01/23/2014 02:48 pm Performed By Performed By: Lucy Corbin RDMS Attending: Gricel Ortiz MD Referred By: GRICEL ORTIZ MD Service(s) Provided [facility] - Targeted Morphology - Genetics - [id number] UOBTV - Viability - Cervical Length - Transvaginal - [id number] Indications r/o anomalies; Cervical Length, from ACC. [id number] per Gricel Ortiz MD. Evaluation Num Of Fetuses: 1 Heart Rate: 159 bpm Cardiac Activity: Observed, normal rhythm Presentation: Cephalic Placenta: Anterior P. Cord Within Normal Limits Insertion: Amniotic Fluid ABRAHAN FV: Appropriate for gestational age -------- Biometry -------- BPD: 45.3 mm G. Age: 19w 5d OFD: 58.6 mm HC: 166.8 mm G. Age: 19w 3d AC: 146.8 mm G. Age: 20w 0d FL: 29.6 mm G. Age: 19w 1d HUM: 29.9 mm G. Age: 19w 6d CER: 17.9 mm G. Age: 17w 6d NFT: 4.4 mm NB: 4.2 mm CI: 77.3 % 70 - 86 FL/HC: 17.7 % 16.1 - 18.3 HC/AC: 1.14 1.09 - 1.39 FL/BPD: 65.3 % FL/AC: 20.2 % 20 - 24 Est. FW: 300 gm 0 lb 11 oz Gestational Age Clinical MEREDITH: 19w 3d MEREDITH: 06/16/14 U/S Today: 19w 4d MEREDITH: 06/15/14 Best: 19w 3d Det. By: Clinical MEREDITH MEREDITH: 06/16/14 Targeted Anatomy Central Nervous System Calvarium: Within Normal Limits Intracranial: Within Normal Limits Lat. Ventricles: Within Normal Limits Cerebellum: Within Normal Limits Choroid Plexus: Within Normal Limits Cisterna Magna: Within Normal limits Spine Cervical: Visualized Thoracic: Visualized Lumbar: Visualized Sacral: Visualized Head/Neck Face: Within Normal Limits Nuchal Fold: Within Normal Limits Eyes: Visualized Thorax Four Chamber: Within Normal Limits Cardiac Motion: Normal Rhythm R Outflow Tract: Visualized L Outflow Tract: Visualized Aortic Arch: Visualized Ductal Arch: Visualized Cardiac Goodman: Visualized Diaphragm: Visualized Abdomen Ventral Wall: Visualized Stomach: Visualized Lt Kidney: Visualized Rt Kidney: Visualized Bladder: Visualized Extremities Lt Humerus: Visualized Rt Humerus: Visualized Lt Forearm: Visualized Rt Forearm: Visualized Lt Hand: Visualized Rt Hand: Visualized Lt Femur: Visualized Rt Femur: Visualized Lt Lower Leg: Visualized Rt Lower Leg: Visualized Lt Foot: Visualized Rt Foot: Visualized Other Umbilical Cord: 3 vessel cord Cord Insertion: WIthin Normal Limits Comment: Nasal Bone: Visualized Cervix Uterus Adnexa Cervical Length: 3.6 cm Cervix: Closed; No change with fundal pressure Left Ovary: Not visualized Right Ovary: Not visualized Impression 2nd Trimester - Targeted Morphology- Summary Single intrauterine with a gestational age of 18w 0d based on clinical MEREDITH. Composite age based on the current ultrasound alone is 19w 4d. Amniotic fluid volume is appropriate for gestational age. Current growth parameters are consistent indicating normal growth. Detailed anatomic evaluation was performed and no structural abnormalities are noted. Transvaginal imaging was performed to evaluate cervical length. The cervix is closed with no dynamic change demonstrated. I viewed the images and agree with the above interpretation. Thank you for allowing us to participate in the care of ARMANI RABAGO. Please do not hesitate to call if you have any questions. Gricel Ortiz MD Electronically Signed Final Report 01/23/2014 03:27 pm Gricel Ortiz MD IMG US OB ORDERABLES documented in this encounter Visit Diagnoses Diagnosis History of premature delivery, second trimester documented in this encounter Care Teams Facilities Assistant Relationship Specialty Start Date End Date Debra Rocha MD [address] [place] [address] PCP - General 01/18/14 documented as of this encounter
--- OUTSIDE RECORDS SUMMARY | 2024-02-14 15:44 | XMS_ITS | Encounter Summary ---
Author Organization [facility] Address [address] [place] [address] Care Team Providers Care Communication Center Coordinator Name Role Phone Unavailable Primary Care Provider Unavailabl e Encounter Details Date Type Department Care Team (Late st Contact Info) Description 08/11/2012 Results Only [facility] - [facility] [address], [place] [address] Logan Stafford NP [address] [place] [address] Social History Tobacco Use Types Packs/Day Years Used Date Smoking Tobacco: Never Assessed Sex and Gender Information Value Date Recorded Sex Assigned at Not on file Gender Identity Not on file Sexual Orientation Not on file documented as of this encounter Plan of Treatment Not on file documented as of this encounter Procedures Procedure Name Priority Date/Time Associated Diagnosis Comments PAP TEST- RESULT ONLY Routine 08/11/2012 0:00 EST documented in this encounter Results * PAP TEST- RESULT ONLY (08/11/2012 0:00 EST) Pathology Report: CYTOPATHOLOGY REPORT Reports generated via electronic interface contain original data; however they are lacking the format of the original report. Caution should be taken when reading/interpreti ng unformatted reports. Name: ? ARMANI OWEN ? Accession #: ? [id number] : ? 1980 (Age: 31) ??F ?Collect Date: ? 08/11/2012 Location: ? [facility] ? Receive Date: ? 08/16/2012 Provider: ?LOGAN STAFFORD SUPPLY CHAIN LOGISTICS MANAGER Copy to: ? Specimen/Source: ?Pap Test, Cervix, ThinPrep Imaging System with manual evaluation Last Menstrual Period: ? 07/26/12 Other: ? FAX - Request for Fax report: Dr. Wilde @ [phone] ? SPECIMEN ADEQUACY ? Satisfactory for Evaluation - transformation zone component present GENERAL CATEGORIZATION ? Negative for Intraepithelial Lesion or Malignancy ? Document reviewed and electronically signed by: ? KALLIE Nevarez(ASCP) ? Report Date: ??2012 13:37 End of Report ALISSA OVIEDO 08/11/2012 08/16/2012 Logan Stafford NP PATHOLOGY ORDERABLES ALISSA OVIEDO [address] [place] [address] documented in this encounter Visit Diagnoses Not on filedocumented in this encounter
--- OUTSIDE RECORDS SUMMARY | 2024-02-14 15:44 | XMS_ITS | Encounter Summary ---
Author Organization Formerly [facility] [place] [address] Care Team Providers Care Technical Services Consultant Name Role Phone Debra Rocha MD Primary Care Provider Reason for Visit * Reason Comments Dermatitis Encounter Details Date Type Department Care Team (Late st Contact Info) Description 12/24/2017 10:45 AM EDT Office Visit Internal Medicine at [address] [id number] Stephane Magana MD [facility] [place] [address] Dermatitis (Primary Dx); Eczema, unspecified type Social History Tobacco Use Types [...] Progress Notes * Stephane Magana MD - 12/24/2017 10:45 AM EDT Images from the original note were not included. DEPARTMENT DERMATOLOGY AT [facility] Dermatology At [facility] [address] [place] [facility] [address] FOLLOW-UP Patient is established to this clinic, but new to me. Chief Complaint: dermatitis f/u - worse History of Present Illness Maris Owen is a 37 y.o. female History of atopic dermatitis since childhood who reports that since May 2017, she has had a persistent, generalized flare causing moderate to severe itching, redness, scaling and sometimes mild pain. The worst areas are her hands and behind her knees. She has been treating with hydrocortisone on her face and clobetasol elsewhere with poor control; she tried using Protopic but it burned for 24 hours and the betamethasone was too greasy. No known triggers; however she did get worse last weekwhen she was diagnosed with a viral infection. [...] Surgical Family, and Social Histories Since Last Visit25 Jul 2017 : No significant and pertinent interval changes. Allergies Review of patient's allergies indicates no known allergies. Medications has a current medication list which includes the following prescription(s): clobetasol, hydrocortisone, tacrolimus, augmented betamethasone dipropionate, and vit calc,iron,folic. Social History Tobacco use - never Stay at home mother Review of Systems Significant for no pertinent and acute changes in constitutional, other skin, musculoskeletal systems upon specific queries. Examination Standby: AURELIO JOHNS LPN Mood is appropriate and congruent with effect. Well developed, well-nourished in no apparent distress, alert and oriented to time, person, place and situation. Focused exam of the face, neck,back,abdomen, axilla, upper and lower extremities [except feet and ankles] significant for the following: ?? Diffuse pink erythematous patches and papules with scant scale on the neck, lower face, trunk and and popliteal fossa; spares mid back and lower abdomen. Bright red slightly lichenified plaques onthe dorsum hands and proximal dorsum fingers. Assessment and Plan Atopic Dermatitis with ACD Moderate flare persistent since May 2017. No evidence of infection. Likely combination of atopic dermatitis with allergic contact dermatitis but the trigger is unknown; patient is using conventional hypoallergenic personal care products. Potential allergen includes topical steroids given the history of clearance with clobetasol with worsening a few days later and or into treatment, medication vehicle or component of personal-care product. Recommend that she not use wipes to wipe the baby without having vinyl gloves on. Given the extensive dorsal hand involvement, recommend avoiding rubber or latex gloves. Discussed differential diagnosis and recommendation for management: phototherapy including narrowband UVB - do not recommend psoralen and UVA (PUVA), switching to betamethasone lotion, avoidance of rubber gloves and wet wipes without personal protective gloves/vinyl. Recommend patch testing. Answered all questions. Patient agrees to plans except is unable to pursue narrowband UVB as she lives near [place], [place]; she was told that she can only receive psoralen and UVA in [place]. ?? Start betamethasone lotion BID instead of ointment or cream. Counseled: risks of topical steroids, including but not limited to atrophy, dyspigmentation. ?? Start hydrocortisone lotion to the face ?? Recommend ESTEPHANIA patch testing. Counseled: patch testing, process, risk of blistering due to adhesive, keep back dry for 5 days to keep wells against skin and avoid washing off skin marker, interpretation (relevant v irrelevant v unknown positives, cross reactions, and false negatives). Must be off antihistamines 2w prior to testing. Answered all questions. Handout given. Patient to schedule. ?? Recommend NBUVB phototherapy; patient to contact Dr. Campbell to pursue this treatment as his practices nearer ?? Continue hypoallergenic personal care products Follow-up: in 3-6 weeks for patch testing or sooner as needed for worsening eczema or new dermatitis. Note initiated by JODEE RIVAS LPN has performed the documentation for this encounter in the presence of and acting as a scribe for Dr. Magana. I performed the above scribed service and agree with the accuracy of the documentation in this encounter. Stephane Magana MD FAAD Section of Dermatology [facility] * Dory Mcgowan - 12/24/2017 10:45 AM EDT 01-03-18 Called patient to schedule patch testing but she declined to schedule at this time. Marcusvishskylar call when she has finished breast feeding to schedule appointment. documented in this encounter Plan of Treatment Not on file documented as of this encounter Visit Diagnoses Diagnosis Dermatitis- Primary Contact dermatitis and other eczema, due to unspecified cause Eczema, unspecified type documented in this encounter Care Teams Technical Services Consultant Relationship Specialty Start Date End Date Debra Rocha MD [facility] RADHIKA ROMO [facility] [address] [place] [address] PCP - General 01/18/14 documented as of this encounter
--- OUTSIDE RECORDS SUMMARY | 2024-02-14 15:44 | XMS_ITS | Encounter Summary ---
Author Organization [facility] Address [address] [place] [address] Care Team Providers Care Delivery Truck Driver Heavy Name Role Phone Unavailable Primary Care Provider Unavailabl e Encounter Details Date Type Department Care Team (Late st Contact Info) Description 07/02/2006 Results Only [facility] - [facility] [address] [place] [address] Lucy Singh, [facility] [address] [place] [address] [place] [address] Social History Tobacco Use Types Packs/Day Years Used Date Smoking Tobacco: Never Assessed Sex and Gender Information Value Date Recorded Sex Assigned at Not on file Gender Identity Not on file Sexual Orientation Not on file documented as of this encounter Plan of Treatment Not on file documented as of this encounter Procedures Procedure Name Priority Date/Time Associated Diagnosis Comments CYTOPATHOLOGY Routine 07/02/2006 0:00 EST documented in this encounter Results * CYTOPATHOLOGY (07/02/2006 0:00 EST) Pathology Report: CYTOPATHOLOGY REPORT Reports generated via electronic interface contain original data; however they are lacking the format of the original report. Caution should be taken when reading/interpreti ng unformatted reports. Name: ? ARMANI OWEN ? Accession #: ? [id number] : ? 1980 (Age: 25) ??F ?Collect Date: ? 07/02/2006 Location: ? [facility] ? Receive Date: ? 07/05/2006 Provider: ?LUCY SINGH COMMERCIAL HOUSEKEEPER Copy to: ? Specimen/Source: ?ThinPrep Pap Test, Cervix/Endocervix, processed on [employer] ThinPrep Imaging System, with manual evaluation Last Menstrual Period: ? 06/12/06 Other: ? HPVA - HPV testing requested if ASC-US on the current ThinPrep Pap test. ? SPECIMEN ADEQUACY ? Satisfactory for Evaluation - transformation zone component present GENERAL CATEGORIZATION ? Negative for Intraepithelial Lesion or Malignancy ? Document reviewed and electronically signed by: ? KALLIE Schwarz(ASCP) ? Report Date: ??07/08/2006 10:59 End of Report ALISSA OVIEDO 07/02/2006 07/05/2006 Lucy Singh COMMERCIAL HOUSEKEEPER PATHOLOGY ORDERABLES ALISSA OVIEDO [address] [place] [address] documented in this encounter Visit Diagnoses Not on filedocumented in this encounter
--- OUTSIDE RECORDS SUMMARY | 2024-02-14 15:44 | XMS_ITS | Encounter Summary ---
Author Organization [facility] Address [facility] [place] [address] Care Team Providers Care Harvester Operator Name Role Phone Debra Rocha MD Primary Care Provider [phone] Reason for Visit * Reason Comments Ultrasound * Consultation (Routine) - Closed Specialty Diagnoses / Procedures Referred By Jailene poon Referred To Contact Genetics / Obstetrics and Gynecology Diagnoses MATERNAL AGE Procedures FULL SLOT Tiffanie Dimas, CNM [address] [place] [address] [facility] [address] [place] [address] Referral ID Status Reason Start Date Expiration Date Visits Re quested Visits Authorized [id number] Closed 08/11/2016 08/11/2017 2 2 Encounter Details Date Type Department Care Team (Latest Contact Info) Description 08/18/2016 11:30 AM EST Procedure visit Obstetrics [place] [address] Sly García MD [facility] OBSTETRICS & [place] [address] AMA (advanced maternal age) primigravida 35+, first trimester Social History Tobacco Use Types Packs/Day [...] as of this encounter Progress Notes * Sly García MD - 08/18/2016 11:30 AM EST Maris Owen was seen today for diagnosis secondary to advanced maternal age at the request of Tiffanie Dimas. The patient is a 35 yrs year old . Patient's last menstrual period was 04/10/2016.. She is currently at 18w4d. Maris is without related complaints. She was seen today for genetic counseling with Keyonna Beckford MSc, ultrasound evaluation, and maternal medicine consultation. An ultrasound examination was performed, and a report will be included with this note to the referring provider. The patient appeared well, there are no neurological deficits, she is alert and oriented; her abdomen and uterus were soft and non-tender. The biometry was consistent with prior dating. The placental location and amniotic fluid volume were normal. morphology survey was normal. I reviewed the genetic counseling provided today. Please refer to the note for full details. There are no additional issues that impact today's visit. No past medical history on file. OB History Para Term AB TAB SAB Ectopic Multiple Living 10 5 3 1 4 1 3 0 0 5 # Outc Date GA Lbr Gato/2nd Wgt Sex Del Anes PTL Lv 1 SAB 8w0d Comments: no d+c 2 SAB 6w0d Comments: no d+c 3 SAB 7w0d Comments: no d+c 4 Para M Y 5 Term 04/2000 41w0d 3.742 kg (8 lb 4 oz) F Vag-Spont 6 Term 01/2004 37w5d 3.289 kg (7 lb 4 oz) F Vag-Spont 7 Term 07/2007 39w2d 3.856 kg (8 lb 8 oz) M Vag-Spont 8 04/2011 34w0d 2.155 kg (4 lb 12 oz) F Vag-Spont Comments: 34 +0/7 wks - PPROM, IOL without difficulty. 9 TAB 09/2015 10 Current Family History Problem Relation Age of Onset ??? Eye Disorder Father retinitis pigmentosa on father's side of family - patient tested negative ??? Anxiety Disorder Mother ??? Depression Mother ??? Eye Disorder Sister Retinitis pigmentosa ??? Eye Disorder Brother Retinitis pigmentosa ??? Eye Disorder Brother Retinitis pigmentosa ??? Arthritis Father of Baby No additional risk factors were identified. The patient was counseled as to her risk of aneuploidy and the possibility of definitive diagnosis by amniocentesis.I explained that amniocentesis only counts chromosomes and looks for large pieces that are missing or duplicated or rearranged. Amniocentesis will not diagnose cerebral palsy, autism,learning disabilities or single gene defects. The limitations of serum screening and ultrasound in predicting aneuploidy, and risk of loss due to amniocentesis were also discussed. Given a normal morphology scan with adequate imaging of all structures, the patient's risk of aneuploidy is decreased. The couple has chosen to defer amniocentesis. No follow-up examinations are indicated. I recommend that Ms. Owen have follow-up with her PCP regarding her recent thyroid ultrasound, which, per her report, showed the presence of polyps. Her thyroid function testing done at the end of06/2016 was within normal limits. Thank you for allowing me to participate in the care of your patient. Please do not hesitate to contact the office should further questions arise. Nick García MD Maternal- Medicine Cc: Tiffanie Dimas CNM [address] [place] [address], with copy of ultrasound report Cc: MD [address] / [facility] [id number] documented in this encounter Plan of Treatment Not on file documented as of this encounter Visit Diagnoses Diagnosis AMA (advanced maternal age) primigravida 35+, first trimester documented in this encounter Care Teams Harvester Operator Relationship Specialty Start Date End Date Debra Rocha MD [address] [place] [address] PCP - General 01/18/14 documented as of this encounter
--- OUTSIDE RECORDS SUMMARY | 2024-02-14 15:44 | XMS_ITS | Encounter Summary ---
Author Organization [facility] Address [facility] [address] Care Team Providers Care Mattress Specialist Name Role Phone Debra Rocha MD Primary Care Provider [phone] Encounter Details Date Type Department Care Team (Late st Contact Info) Description 05/18/2018 1:45 PM EDT Office Visit Dermatology at [address] [address] Stephane Magana MD [facility] [place] [address] Dermatitis; Impetigo Social History Tobacco Use Types Packs/Day Years [...] Progress Notes * Stephane Magana MD - 05/18/2018 1:45 PM EDT Visit For: Patch Test 2d follow-up History of Present Illness Maris Owen is a 37 y.o. female. History of atopic dermatitis generalized on the body here for patch testing 2d follow-up. Not currently treating with anything, but notes worsening of rash and scales on the back and diffuse moderateitching.. Currently . ?? Antecedent History: History of atopic dermatitis since childhood who reports that since May 2017, she has had a persistent, generalized flare causing moderate to severe itching, redness, scalingand sometimes mild pain.?The worst areas are her hands and behind her knees.??She has been treating with hydrocortisone on her face and clobetasol elsewhere with poor control; she tried using Protopic but it burned for 24 hours and the betamethasone was too greasy. ??No known triggers; however she did get worse last week when she was diagnosed with a viral infection. ??Does not take antihistamines. ??Currently, uses Cetaphil soap, Dermarest, free and clear laundry detergent, hydrocortisone and clobetasol 1-2 times per day which is necessary. History of skin prick testing in 2017 - no results available - but has never been patch testing.?Patient is . Never been biopsied.?? Interval changes to Medications and Medical, Family and Social Histories (including alcohol and tobacco use) Since Last Visit 05/16/18: No significant interval history. Allergies Patient has no known allergies. Medications has a current medication list which includes the following prescription(s): betamethasone (augmented), clobetasol, hydrocortisone, tacrolimus, and vit calc,iron,folic. Review of Systems Significant for no pertinent and acute changes in constitutional, other skin, respiratory, allergy systems upon specific queries. Examination Mood is appropriate. Well developed, well-nourished in no apparent distress, alert and oriented to time, person, place and situation. Examination of the back significant for the following: ?? Diffuse pink to bright red erythema on the back; honey crusted patches on the right eft upper back and left mid back Assessment and Plan Dermatitis / Encounter for Patch Testing Panels outlined and removed. Moderately contact and/or Id reaction. Unable to evaluate patch results due to diffuse eczematous dermatitis. This is compromising test validity. Favor improving patient's discomfort and addressing impetigo but will try to continue with evaluation on Wednesday based on photos of placement. Impetigo / Eczema Impetiginized contact and Id reaction. Discussed with patient options including oral antibiotics - including risk of inclusion in breast milk - topical antibiotics, and/or bleach baths. Discussed impact on testing if washes off purple marker but given the baseline photos can possible estimate locations if she clears up. Answered all questions. Patient elects topical therapy. ?? Start mupirocin tid to the impetiginized areas of the back ?? Bleach bath - capful of water in full bath tub and soak for 20min. Follow-up: Two (2) days for 5d patch test interpretation Note initiated by Meenakshi Magana has performed the documentation for this encounter. Stephane Magana MD [facility] Section of Dermatology [facility] documented in this encounter Plan of Treatment Not on file documented as of this encounter Visit Diagnoses Diagnosis Dermatitis Contact dermatitis and other eczema, due to unspecified cause Impetigo documented in this encounter Care Teams Mattress Specialist Relationship Specialty Start Date End Date Debra Rocha MD [facility] [address] [place] [address] PCP - General 01/18/14 documented as of this encounter
--- OUTSIDE RECORDS SUMMARY | 2024-02-14 15:44 | XMS_ITS | Encounter Summary ---
Author Organization [facility] Address [address] [place] [address] Care Team Providers Care Food Safety Specialist Name Role Phone Unknown, Provider Primary Care Provider Encounter Details Date Type Department Care Team (Late st Contact Info) Description 06/25/2016 Results Only [facility] [phone] Logan Malone CNM Social History Tobacco Use Types Packs/Day Years [...] Diagnosis Comments PAP TEST- RESULT ONLY Routine 06/25/2016 0:00 EST documented in this encounter Results * PAP TEST- RESULT ONLY (06/25/2016 0:00 EST) Pathology Report: CYTOPATHOLOGY REPORT Reports generated via electronic interface contain original data; however they are lacking the format of the original report. Caution should be taken when reading/interpreti ng unformatted reports. Name: ? ARMANI OWNE ? Accession #: ? [id number] ? : ? 1980 (Age: 35) ??F ?Collect Date: ? 06/25/2016 ? Location: ? [facility] ? Receive Date: ? 06/26/2016 ? Provider: LOGAN MALONE CNM Copy to: PARISH VIGIL MD ? Final Report SPECIMEN ADEQUACY ? Satisfactory for Evaluation - transformation zone component present GENERAL CATEGORIZATION ? Negative for Intraepithelial Lesion or Malignancy ?? Last Menstrual Period: 04/10/2016 Menstrual/Pregnanc y Status: ?? Specimen/Source: ??Pap Test, Cervix, ThinPrep Imaging System with manual evaluation Document reviewed and electronically signed by: ? Nanci Miller, [facility](ASCP) ? Report ??Date: 07/01/2016 09:33 HPV with Pap Test ? Date Ordered: ? 07/01/2016 ? Status: ?? Signed Out ?Date Complete: ? 07/02/2016 ? By: ??System Interface ? Date Reported: ? 07/02/2016 ? Interpretation RESULT: Negative for HPV. No E6 or E7 mRNA is detected from HPV types 16,18,31,33,35, 39,45,51,52,56,58, 59,66, and 68 by compacting machine operator/tender mediated amplification. Comments Document reviewed and electronically signed by: ? System Interface ? Report date: 07/02/2016 By the signature above, the attending physician certifies that he/she has personally conducted a gross and/or microscopic examination of the described specimens and rendered or confirmed the above diagnosis. End of Report [facility] 06/25/2016 06/26/2016 Logan Malone CNM PATHOLOGY ORDERABLES [facility] [address] [place] [address] documented in this encounter Visit Diagnoses Not on filedocumented in this encounter Care Teams Food Safety Specialist Relationship Specialty Start Date End Date Unknown, Provider, PCP - General 06/01/15 01/22/21 documented as of this encounter
--- OUTSIDE RECORDS SUMMARY | 2024-02-14 15:44 | XMS_ITS | Encounter Summary ---
Author Organization [facility] Address [facility] [place] [address] Care Team Providers Care Government Affairs Fellow Name Role Phone Debra Rocha MD Primary Care Provider [phone] Encounter Details Date Type Department Care Team (Late st Contact Info) Description 08/06/2016 Orders Only Obstetrics [place] [address] Gricel Ortiz MD [facility] OBSTETRICS & [place] [address] Maternal age > 35, multigravida, unspecified trimester Social History Tobacco Use Types Packs/Day [...] on file documented as of this encounter Results * US OB Detailed [...] 01:14 pm) PATIENT INFO: ID #: ? [id number] ?: ??[birth year] (35 yrs) Name: ? ARMANI Heart LUKE ?Visit Date: 08/18/2016 11:04 am PERFORMED BY: Performed By: ? Jeanne Oconnor RDMS Attending: ?Sly García MD ??Sally Referred By: ?HARVINDER CHE [facility] Location: ? [place] SERVICE(S) PROVIDED: ??[facility] - Detailed Morphology - [id number] ? [id number] INDICATIONS: ??MATERNAL AGE, ANEA LELONG OB HISTORY: [...] ?68.6 ??% FL/AC: ? 21.6 ??% ? 20 - 24 Est. FW: ? 283 ?? gm ?? [...] Outflow Tract: ?Visualized Aortic Arch: ?Visualized Cardiac [place]: ? Visualized 3 Vessel View: ?Visualized Diaphragm: [...] 08/18/2016 01:14 pm) PATIENT INFO: ID #: [id number] : [birth year] (35 yrs) Name: ARMANI OWEN Visit Date: 08/18/2016 11:04 am PERFORMED BY: Performed By: Jeanne Oconnor RDMS Attending: Sly García MD Referred By: HARVINDER RICARDO Location: [place] SERVICE(S) PROVIDED: [facility] - Detailed Morphology - [id number] INDICATIONS: MATERNAL AGE, ANEA LELONG OB HISTORY: Blood Type: A+ Height: 5'5 [...] 18w 4d Det. By: LMP (04/10/16) MEREDITH: 06/23/17 TARGETED ANATOMY: Central Nervous System Calvarium: Within [...] Outflow Tract: Visualized Aortic Arch: Visualized Cardiac [place]: Visualized 3 Vessel View: Visualized Diaphragm: Visualized [...] Signed Final Report 08/18/2016 01:14 pm E Sally García MD IMG US OB ORDERAB LES documented in this encounter Visit Diagnoses Diagnosis Maternal age > 35, multigravida, unspecified trimester Maternal age > 35, multigravida, unspecified trimester documented in this encounter Care Teams Government Affairs Fellow Relationship Specialty Start Date End Date Debra Rocha MD [facility] [address] [place] [address] PCP - General 01/18/14 documented as of this encounter
--- OUTSIDE RECORDS SUMMARY | 2024-02-14 15:44 | XMS_ITS | Encounter Summary ---
Author Organization [facility] [employer] [facility] Address [address] [place] [address] Care Team Providers Care Real Estate Valuer Name Role Phone Unavailable Primary Care Provider Unavailabl e Encounter Details Date Type Department Care Team (Late st Contact Info) Description 10/24/2010 Results Only [facility] Laboratory Services - [facility] [address] [place] [address] Debra Vigil MD [address] [place] [address] Social History Tobacco Use Types Packs/Day Years Used Date Smoking Tobacco: Never Assessed Sex and Gender Information Value Date Recorded Sex Assigned at Not on file Gender Identity Not on file Sexual Orientation Not on file documented as of this encounter Plan of Treatment Not on file documented as of this encounter Procedures Procedure Name Priority Date/Time Associated Diagnosis Comments CYTOPATHOLOGY Routine 10/24/2010 0:00 EDT documented in this encounter Results * CYTOPATHOLOGY (10/24/2010 0:00 EDT) Pathology Report: CYTOPATHOLOGY REPORT ? Reports generated via electronic interface contain original data; ? however they are lacking the format of the original report. ? Caution should be taken when reading/interpreti ng unformatted reports. ? Name: ? ARMANI OWEN ? Accession #: ? [id number] ? : ? 1980 (Age: 30) ??F ?Collect Date: ? 10/24/2010 ? Location: ? [facility] ? Receive Date: ? 10/28/2010 ? Provider: ?DEBRA VIGIL MD ? Copy to: ? Specimen/Source: ?Pap Test, Cervix/Endocervix, ThinPrep Imaging System ? with manual evaluation ? Last Menstrual Period: ? 02/15/11 ? Menstrual/Pregnanc y Status: ? SPECIMEN ADEQUACY ? Satisfactory for Evaluation ? - transformation zone component present ? GENERAL CATEGORIZATION ? Negative for Intraepithelial Lesion or Malignancy ? Document reviewed and electronically signed by: ? Lyssa Tye, [place](ASCP) ? Report Date: ??10/30/2010 13:08 ? End of Report ? ALISSA OVIEDO 10/24/2010 10/28/2010 Debra Vigil MD PATHOLOGY ORDERABLES Performing Organization Address City/State/[facility] Co de Phone Number ALISSA OVIEDO [address] [place] [address] documented in this encounter Visit Diagnoses Not on filedocumented in this encounter
--- OUTSIDE RECORDS SUMMARY | 2024-02-14 15:44 | XMS_ITS | Referral Summary ---
Author Organization [facility] Address [address] [place] [address] Care Team Providers Care Warehouse Driver Name Role Phone Debra Rocha MD Primary Care Provider [phone] Social History Tobacco Use Types Packs/Day Years Used Date Smoking Tobacco: Never Assessed Sex and Gender Information Value Date Recorded Sex Assigned at Not on file Gender Identity Not on file Sexual Orientation Not on file Plan of Treatment Not on file Care Teams Warehouse Driver Relationship Specialty Start Date End Date Debra Rocha MD [address] [place] [phone] [facility] - General 01/23/21
--- OUTSIDE RECORDS SUMMARY | 2024-02-14 15:44 | XMS_ITS | Encounter Summary ---
[place] [address] Care Team Providers Care Sheet Metal Insulator Name Role Phone Debra Rocha MD Primary Care Provider [phone] Encounter Details Date Type Department Care Team (Late st Contact Info) Description 01/18/2014 Orders Only Obstetrics [place] [address] Hilary Dutton, RN (Primary Dx) Social History Tobacco Use Types [...] as of this encounter Visit Diagnoses Diagnosis - Primary state, incidental documented in this encounter Care Teams Sheet Metal Insulator Relationship Specialty Start Date End Date Debra Rocha MD [facility] [address] [place] [address] PCP - General 01/18/14 documented as of this encounter
--- OUTSIDE RECORDS SUMMARY | 2024-02-14 15:44 | XMS_ITS | Encounter Summary ---
Author Organization [facility] Address [address] [place] [address] Care Team Providers Care Food Crops Farm Hand Name Role Phone Unavailable Primary Care Provider Unavailabl e Encounter Details Date Type Department Care Team (Late st Contact Info) Description 03/18/2004 Results Only [facility] - [facility] [address] [place] [address] Ivette Mccann, [place], [place] [address] Social History Tobacco Use Types Packs/Day Years Used Date Smoking Tobacco: Never Assessed Sex and Gender Information Value Date Recorded Sex Assigned at Not on file Gender Identity Not on file Sexual Orientation Not on file documented as of this encounter Plan of Treatment Not on file documented as of this encounter Procedures Procedure Name Priority Date/Time Associated Diagnosis Comments CYTOPATHOLOGY Routine 03/18/2004 0:00 EDT documented in this encounter Results * CYTOPATHOLOGY (03/18/2004 0:00 EDT) Pathology Report: CYTOPATHOLOGY REPORT Reports generated via electronic interface contain original data; however they are lacking the format of the original report. Caution should be taken when reading/interpreti ng unformatted reports. Name: ? ARMANI OWEN ? Accession #: ? [id number] : ? 1980 (Age: 23) ??F ?Collect Date: ? 03/18/2004 Location: ? [facility] ? Receive Date: ? 03/20/2004 Provider: ?IVETTE MCCANN CNM Copy to: ? Specimen/Source: ?ThinPrep Pap Test, Cervix/Endocervix Last Menstrual Period: ? 05/09/03 Menstrual/Pregnanc y Status: ? Post Other: ? HPVA - HPV testing requested if ASC-US on the current ThinPrep Pap test. ? SPECIMEN ADEQUACY ? Satisfactory for Evaluation - transformation zone component present GENERAL CATEGORIZATION ? Negative for Intraepithelial Lesion or Malignancy ? Document reviewed and electronically signed by: ? KALLIE Kulkarni(ASCP) ? Report Date: ??03/24/2004 09:46 End of Report ALISSA OVIEDO 03/18/2004 03/20/2004 Ivette Mccann CNM PATHOLOGY ORDERABLES ALISSA OVIEDO [address] [place] [address] documented in this encounter Visit Diagnoses Not on filedocumented in this encounter
--- OUTSIDE RECORDS SUMMARY | 2024-02-14 15:44 | XMS_ITS | Encounter Summary ---
Author Organization [facility] Address [address] [place] [address] Care Team Providers Care Wire Temperer Name Role Phone Unknown, Provider Primary Care Provider [phone] Debra Rocha MD Primary Care Provider [phone] Encounter Details Date Type Department Care Team (Late st Contact Info) Description 01/03/2020 Lab Requisition [facility] Pathology & Laboratory Medicine - [address] [address] Outr Resulting Lab, Provider Social History Tobacco Use Types Packs/Day Years Used Date Smoking Tobacco: Never Assessed Sex and Gender Information Value Date Recorded Sex Assigned at Not on file Gender Identity Not on file Sexual Orientation Not on file documented as of this encounter Plan of Treatment Not on file documented as of this encounter Procedures Procedure Name Priority Date/Time Associated Diagnosis Comments ZZCOVID-19 TEST [facility] PCR Today 01/02/2020 16:48 EDT COVID-19 TESTING Routine 01/02/2020 16:4 8 EDT documented in this encounter Results * COVID-19 TEST [facility] PCR (01/02/2020 16:48 EDT) Swab ENTIRE NASOPHARYNX / Unknown 01/02/2020 16:48 EDT 01/03/2020 21:33 EDT Provider Outr Resulting Lab MICROBIOLOGY - GENERAL ORDERABLES [facility] [address] [place] [address] * COVID-19 TESTING (01/02/2020 16:48 EDT) COVID-19 rt-PCR Result Negative Negative 01/04/2020 10:16 EDT [facility] Comment: This test has not been FDA cleared or approved. This test has been authorized by FDA under an EUA for use by authorized laboratories. This test has been authorized only for detection of nucleic acid from 2019-nCoV, not for any other viruses or pathogens. This test is only authorized for the duration of the declaration that circumstances exist justifying the authorization of emergency use of in vitro diagnostic tests for detection and/or diagnosis of 2019-nCoV under section 564(b)(1) of Act, 21 U.S.C ?? 360bbb-3(b) (1), unless the authorization is terminated or revoked sooner. Negative results do not preclude 2019-nCoV infection and should not be used as the sole basis for treatment or other patient management decisions. Negative results must be combined with clinical observations, patient history, and epidemiological information. Performed on the AudioName Fusion instrument Performing Lab [place] [facility] Lab 01/04/2020 10:16 EDT [facility] Swab 01/02/2020 16:4 8 EDT 01/03/2020 21:33 EDT Provider Outr Resulting Lab MICROBIOLOGY - GENERAL ORDERABLES [facility] [address] [place] [address] documented in this encounter Visit Diagnoses Not on filedocumented in this encounter Care Teams Wire Temperer Relationship Specialty Start Date End Date Unknown, Provider, PCP - General 06/01/15 01/22/21 Debra Rocha MD [address] [place] [id number] PCP - General 01/23/21 documented as of this encounter
--- OUTSIDE RECORDS SUMMARY | 2024-02-14 15:44 | XMS_ITS | Encounter Summary ---
Author Organization [facility]ending [facility] Address [facility] [place] [address] Care Team Providers Care Sustainability Analyst Name Role Phone Debra Rocha MD Primary Care Provider [phone] Encounter Details Date Type Department Care Team (Late st Contact Info) Description 01/23/2014 Orders Only Obstetrics [place] [address] Gricel Ortiz MD [facility] [address] OBSTETRICS & [place] [address] History of premature delivery, second trimester (Primary Dx) Social History Tobacco Use Types [...] Diagnoses Diagnosis History of premature delivery, second trimester- Primary documented in this encounter Care Teams Sustainability Analyst Relationship Specialty Start Date End Date Debra Rocha MD [facility] [address] [place], [place] [id number] PCP - General 01/18/14 documented as of this encounter
--- OUTSIDE RECORDS SUMMARY | 2024-02-14 15:44 | XMS_ITS | Encounter Summary ---
Author Organization [facility] Address [address] [place] [address] Care Team Providers Care Hose Handler Name Role Phone Unknown, Provider Primary Care Provider [phone] Debra Rocha MD Primary Care Provider [phone] Encounter Details Date Type Department Care Team (Late st Contact Info) Description 07/04/2019 Lab Requisition [facility] Pathology & Laboratory Medicine - [address] [address] Unknown, Provider, Social History Tobacco Use Types Packs/Day Years Used Date Smoking Tobacco: Never Assessed Sex and Gender Information Value Date Recorded Sex Assigned at Not on file Gender Identity Not on file Sexual Orientation Not on file documented as of this encounter Plan of Treatment Not on file documented as of this encounter Procedures Procedure Name Priority Date/Time Associated Diagnosis Comments CORTISOL Routine 07/04/2019 8:17 EST documented in this encounter Results * CORTISOL (07/04/2019 8:17 EST) Cortisol 11 See Note ug/dL 07/04/2019 17:31 EST [facility] Comment: NOTE: Reference Ranges (from OCD IFU): Collected Before 10:00 AM: ??4 - 23 ug/dL Collected After 5:00 PM: ?2 - 14 ug/dL The results of this assay can be falsely elevated due to the consumption of Biotin. Blood VENOUS BLOOD / Unknown 07/04/2019 8:17 EST 07/04/2019 16:30 EST Provider Unknown CHEMISTRY & BLOOD GA S ORDERABLES [facility] [address] [place] [address] documented in this encounter Visit Diagnoses Not on filedocumented in this encounter Care Teams Hose Handler Relationship Specialty Start Date End Date Unknown, Provider, PCP - General 06/01/15 01/22/21 Debra Rocha MD [address] [place] [phone] PCP - General 01/23/21 documented as of this encounter
[2024-02-14 18:52] LABS: Calculated LDL 91 mg/dL (<100); Cholesterol 175 mg/dL (<200); HDL Cholesterol 73 mg/dL (40-60); TSH 1.12 uIU/Ml (0.36-3.74); Triglyceride 59 mg/dL (<150)
[2024-02-14 19:17] LABS: FREE T4 1.18 ng/dL (0.76-1.46)
== END 2024-02-14 15:40 | disposition home or self-care (01) ==
LOC: NCHCN 15:39
PROVIDERS: PCP Family Medicine; Visit Provider Family Medicine
DX: E04.2 Nontoxic multinodular goiter (principal); Z13.220 Encounter for screening for lipoid disorders
CPT/HCPCS: 80061; 84439; 84443

== ENCOUNTER → 2024-02-28 01:55 | Outpatient (CLI) | payer OTHER, SELFPAY ==
--- NOTE | 2024-02-28 | DI.MAMMO_ITS ---
Exam(s) MAMMO SCREENING EXAM: MAMMO SCREENING CLINICAL HISTORY: Screening, Z12.39. TECHNIQUE: Bilateral full field digital CC and MLO mammographic images were obtained with 3D tomosyn thesis and utilizing computer aided detection (CAD). COMPARISON: None. This is a baseline mammogram on a 43-year-old FINDINGS: Fibroglandular tissue pattern is moderately dense There are no CAD designations. There are no spiculated masses nor malignant appearing microcalcification groups. There is no significant architectural distortion nor skin thickening-retraction. IMPRESSION: No radiographic evidence of malignancy. BI-RADS Category 1 - Negative Breast Density - Category C - Heterogeneously dense Breast density Category C or D implies that the patient has dense breast tissue. Dense breast tissue can make it harder to find cancer on a mammogram. Dense breast tissue is also associated with an incr eased risk of breast cancer. This information about the result of the mammogram report was provided to the patient to raise their awareness. Use this report when you speak with the patient about their risks for breast cancer, which includes their family history. At that time, you may recommend additional screening tests (Ultrasoun d or MRI) as these tests may add significant information. A negative radiographic report should not delay biopsy if a dominant or clinically suspicious mass is present. Up to ten percent of cancers are not identified on mammography. A negative report may reinforce clinical impression. Adenosis and dense breasts may obscure an underlying neoplasm. False positive reports average 6 to 10%. Patient will receive a letter notifying them of these results.
--- OUTSIDE RECORDS SUMMARY | 2024-02-28 01:59 | XMS_ITS | Encounter Summary ---
Author Organization [facility] [place] [address] Care Team Providers Care Senior Auditor Name Role Phone Debra Rocha MD Primary Care Provider [phone] Encounter Details Date Type Department Care Team (Late st Contact Info) Description 11/07/2020 Telephone Cardiology at [address] [phone] Araceli Mart Social History Tobacco Use Types [...] MAGGIE REGARDING REFERRAL FROM PATIENT'S PCP TO [facility] FOR A CARDIAC CT - [...] THEY COULD HAND DELIVER REFERRAL REQUEST TO [facility]. (P/C DURATION EST. 30- 35 MINS) documented in this encounter Plan of Treatment Not on file documented as of this encounter Visit Diagnoses Not on filedocumented in this encounter Care Teams Senior Auditor Relationship Specialty Start Date End Date Debra Rocha MD [address] [place] [address] PCP - General 01/18/14 documented as of this encounter
--- OUTSIDE RECORDS SUMMARY | 2024-02-28 01:59 | XMS_ITS | Encounter Summary ---
Author Organization [facility] [place] [address] Care Team Providers Care Medical Device Sales Name Role Phone Debra Rocha MD Primary Care Provider [phone] Reason for Visit * Reason Comments Rash Encounter Details Date Type Department Care Team (Late st Contact Info) Description 05/16/2018 1:45 PM EDT Office Visit Dermatology at [facility] [address] [place] [address] Stephane Magana MD [address] [facility] [facility] [place] [address] Dermatitis (Primary Dx); Encounter for allergy testing [...] systems upon specific queries. Examination Standby: Tasya Ernestinawi Mood is appropriate. Well developed, well-nourished in no apparent distress, alert and oriented to time, person, place and situation. Examination of the back significant for the following: ?? Brule patches and papules on the upper back [...] Stephane Magana MD FAAD Section of Dermatology [facility] documented in this encounter Plan of Treatment Not on file documented as of this encounter Visit Diagnoses Diagnosis Dermatitis- Primary Contact dermatitis and other eczema, due to unspecified cause Encounter for allergy testing Diagnostic skin and sensitization tests documented in this encounter Care Teams Medical Device Sales Relationship Specialty Start Date End Date Debra Rocha MD [facility] [address] [place] [address] PCP - General 01/18/14 documented as of this encounter
--- OUTSIDE RECORDS SUMMARY | 2024-02-28 01:59 | XMS_ITS | Encounter Summary ---
[place] [address] Care Team Providers Care Assistant Principal Name Role Phone Debra Rocha MD Primary Care Provider [phone] Encounter Details Date Type Department Care Team (Late st Contact Info) Description 05/23/[address] [facility] [address] [place] [address] Stephane Magana MD [address] [facility] [place] [address] Social History Tobacco Use Types Packs/Day Years [...] on filedocumented in this encounter Care Teams Assistant Principal Relationship Specialty Start Date End Date Debra Rocha MD [address] [facility] 1 [place] [address] PCP - General 01/18/14 documented as of this encounter
--- OUTSIDE RECORDS SUMMARY | 2024-02-28 01:59 | XMS_ITS | Encounter Summary ---
Author Organization [facility] Address [address] [place] [address] Care Team Providers Care Prior Authorization Nurse Name Role Phone Unavailable Primary Care Provider Unavailabl e Encounter Details Date Type Department Care Team (Late st Contact Info) Description 03/18/2004 Results Only [facility] - Maple conversion [address] [place] [address] Ivette Mccann, [place], [place] [address] Social History Tobacco Use Types Packs/Day Years [...] ? ARMANI OWEN ? Accession #: ? [id number] : ? 1980 (Age: 23) ??F ?Collect [...] Mccann CNM PATHOLOGY ORDERABLES ALISSA OVIEDO [address] [place] [address] documented in this encounter Visit Diagnoses Not on filedocumented in this encounter
--- OUTSIDE RECORDS SUMMARY | 2024-02-28 01:59 | XMS_ITS | Clinical Summary ---
Author Organization [facility] Address [facility] [place] [address] Care Team Providers Care Robot Programmer Name Role Phone Debra Rocha MD Primary Care Provider [phone] Allergies No known active allergies Medications Medication [...] - Influenza standard series) 03/26/2024 Care Teams Robot Programmer Relationship Specialty Start Date End Date Debra Rocha MD [address] [place] [address] [facility] - General 01/18/14
--- OUTSIDE RECORDS SUMMARY | 2024-02-28 01:59 | XMS_ITS | Encounter Summary ---
Author Organization [facility] Address [facility] [place] [address] Care Team Providers Care Machine Pan Greaser Name Role Phone Debra Rocha MD Primary Care Provider [phone] Encounter Details Date Type Department Care Team (Latest Contact Info) Description 08/18/2016 10:48 AM EST - 08/18/2016 11:[address] [facility] Hospital [place] [address] Sly García MD [facility] [place] [address] Maternal age > 35, multigravida, unspecified trimester [...] 01:14 pm) PATIENT INFO: ID #: ? [id number] ?: ??[birth year] (35 yrs) Name: ? ARMANI Heart LUKE ?Visit Date: 08/18/2016 11:04 am PERFORMED BY: Performed By: ? Jeanne Oconnor RDMS Attending: ?Sly García MD ??Sally Referred By: ?HARVINDER CHE CNM Location: ? [place] SERVICE(S) PROVIDED: ??[facility] - Detailed Morphology - [id number] ? [id number] INDICATIONS: ??MATERNAL AGE, ANEA LELONG OB HISTORY: [...] Outflow Tract: ?Visualized Aortic Arch: ?Visualized Cardiac Lindstrom: ? Visualized 3 Vessel View: ?Visualized Diaphragm: [...] 08/18/2016 01:14 pm) PATIENT INFO: ID #: [id number] : [birth year] (35 yrs) Name: ARMANI OWEN Visit Date: 08/18/2016 11:04 am PERFORMED BY: Performed By: Jeanne Oconnor RDMS Attending: Sly García MD Referred By: HARVINDER CHE [facility] Location: [place] SERVICE(S) PROVIDED: [facility] - Detailed Morphology - [id number] INDICATIONS: MATERNAL AGE, HARVINDER CHE OB HISTORY: [...] Outflow Tract: Visualized Aortic Arch: Visualized Cardiac Lindstrom: Visualized 3 Vessel View: Visualized Diaphragm: Visualized [...] 01:14 pm E Sally García MD IMG OB ORDERAB LES documented in this encounter Visit Diagnoses Diagnosis Maternal age > 35, multigravida, unspecified trimester documented in this encounter Care Teams Machine Pan Greaser Relationship Specialty Start Date End Date Debra Rocha MD [facility] [address] [place] [address] PCP - General 01/18/14 documented as of this encounter
--- OUTSIDE RECORDS SUMMARY | 2024-02-28 01:59 | XMS_ITS | Encounter Summary ---
Author Organization [facility] Address [address] [place] [address] Care Team Providers Care Cow Washer Name Role Phone Unknown, Provider Primary Care Provider [phone] Debra Rocha MD Primary Care Provider Encounter Details Date Type Department Care Team (Late st Contact Info) Description 01/03/2020 Lab Requisition [facility] Pathology & Laboratory Medicine - [address] [address] Outr Resulting Lab, Provider Social History Tobacco [...] Outr Resulting Lab MICROBIOLOGY - GENERAL ORDERABLES [facility] [address] [place] [address] * COVID-19 TESTING (01/02/2020 16:48 EDT) COVID-19 rt-PCR Result Negative Negative 01/04/2020 10:16 EDT [facility] Comment: This test has [...] history, and epidemiological information. Performed on the CircleUp Fusion instrument Performing Lab [facility] Lab 01/04/2020 10:16 EDT [facility] Swab 01/02/2020 16:4 8 EDT 01/03/2020 21:33 EDT Provider Outr Resulting Lab MICROBIOLOGY - GENERAL ORDERABLES [facility] [address] [place] [address] documented in this encounter Visit Diagnoses Not on filedocumented in this encounter Care Teams Cow Washer Relationship Specialty Start Date End Date Unknown, Provider, PCP - General 06/01/15 01/22/21 Debra Rocha MD [address] [place] [phone] PCP - General 01/23/21 documented as of this encounter
--- OUTSIDE RECORDS SUMMARY | 2024-02-28 01:59 | XMS_ITS | Encounter Summary ---
Author Organization [facility] [place] [address] Care Team Providers Care Street Contractor Name Role Phone Debra Rocha MD Primary Care Provider [phone] Reason for Referral * Diagnostic Test (Routine) - Closed Specialty Diagnoses / Procedures Referred By Contac t Referred To Contact Radiology Diagnoses Dyspnea on exertion Palpitations Chest tightness Procedures CT Angiogram Coronary Arteries Debra Rocha MD [address] [place] [address] [facility] [place] [address] Referral ID Status Reason Start Date Expiration Date V isits Requested Visits Authorized [id number] Closed Specialty Service Requested 11/07/2020 05/09/2022 1 1 Reason for Visit * Diagnostic Test (Routine) - Closed Specialty Diagnoses / Procedures Referred By Contac t Referred To Contact Radiology Diagnoses Dyspnea on exertion Palpitations Chest tightness Procedures CT Angiogram Coronary Arteries Debra Rocha MD [address] [place] [address] [facility] [place] [address] Referral ID Status Reason Start Date Expiration Date V isits Requested Visits Authorized [id number] Closed Specialty Service Requested 11/07/2020 05/09/2022 1 1 Encounter Details Date Type Department Care Team (Latest Contact Info) Description 11/11/2020 10:30 AM EDT - 11/11/2020 11:59 PM EDT Hospital Encounter [facility] Scan at [facility] [place] [address] Debra Rocha MD [facility] [address] [place] [address] Dyspnea on exertion; Palpitations; Chest tightness Discharge [...] who have questions please contact the health acute care nurse practitioner that requested your imaging first. ? Narrative 11/11/2020 2:04 PM EDT EXAMINATION: CTA [...] patients who have questions please contactthe health acute care nurse practitioner that requested your imaging first. Debra Rocha MD IMG CT ORDERABLES documented [...] mLs documented in this encounter Care Teams Street Contractor Relationship Specialty Start Date End Date Debra Rocha MD [address] [place] [address] PCP - General 01/18/14 documented as of this encounter
--- OUTSIDE RECORDS SUMMARY | 2024-02-28 01:59 | XMS_ITS | Encounter Summary ---
Author Organization [facility] Address [facility] [place] [address] Care Team Providers Care Vegetable Vendor Name Role Phone Debra Rocha MD Primary Care Provider [phone] Encounter Details Date Type Department Care Team (Late st Contact Info) Description 08/20/2017 Telephone Dermatology at [facility] [address] [place] [address] Dk Begum MD [facility] [address] [place] [address] Social History Tobacco Use Types Packs/Day Years [...] so, would send prescription for methoxsalen to [facility]. [facility], who is going to look into it and ensure that they are able to compound the topical methoxsalen. Dk Begum MD Resident in Dermatology [facility] documented in this encounter Plan of Treatment Not on file documented as of this encounter Visit Diagnoses Not on filedocumented in this encounter Care Teams Vegetable Vendor Relationship Specialty Start Date End Date Debra Rocha MD [address] [place] [address] PCP - General 01/18/14 documented as of this encounter
--- OUTSIDE RECORDS SUMMARY | 2024-02-28 01:59 | XMS_ITS | Encounter Summary ---
Author Organization [facility] Address [address] [place] [address] Care Team Providers Care Commercial Truck Driver Name Role Phone Unavailable Primary Care Provider Unavailabl e Encounter Details Date Type Department Care Team (Late st Contact Info) Description 10/12/2008 Before PRISM Converted [facility] [address] [place] [address] Debra Vigil MD [address] [place] [phone] Social History Tobacco Use Types Packs/Day Years [...] ? ARMANI OWEN ? Accession #: ? [id number] ? : ? 1980 (Age: 28) ??F [...] Vigil MD PATHOLOGY ORDERABLES ALISSA OVIEDO [address] [place] [address] documented in this encounter Visit Diagnoses Not on filedocumented in this encounter
--- OUTSIDE RECORDS SUMMARY | 2024-02-28 01:59 | XMS_ITS | Encounter Summary ---
Author Organization [facility] Address [facility] [place] [address] Care Team Providers Care Spud Driller Name Role Phone Debra Rocha MD Primary Care Provider [phone] Reason for Visit * Reason Comments Skin Lesion * Consultation (Routine) - Specialty Diagnoses / Procedures Referred By Jailene poon Referred To Contact Dermatology Diagnoses Dermatitis, unspecified Impetigo, unspecified Procedures Eczema / Impetigo Debra Rocha MD [facility] [address] [place] [address] [facility] Dermatology [address] [place] [address] Referral ID Status Reason Start Date Expiration Date V isits Requested Visits Authorized [id number] 06/30/2017 06/30/2018 1 1 Encounter Details Date Type Department Care Team (Late st Contact Info) Description 08/19/2017 10:20 AM EST Office Visit Dermatology at [address] [place] [address] Dk Begum MD [facility] [address] [place] [address] Atopic dermatitis, unspecified type Social [...] - Minimize hand washing and use hand news library director with moisturizer (e.g., Avagard) - For hands, [...] to minimize hand washing and use hand news library director with moisturizer (e.g., Avagard) - For hands, [...] by Dk Begum MD Resident in Dermatology [facility] Patient seen in conjunction with staff spooling supervisor: Danita Givens MD Section of Dermatology [facility] * Danita Givens MD - 08/19/2017 10:20 [...] type documented in this encounter Care Teams Spud Driller Relationship Specialty Start Date End Date Debra Rocha MD [address] [place] [address] PCP - General 01/18/14 documented as of this encounter
--- OUTSIDE RECORDS SUMMARY | 2024-02-28 01:59 | XMS_ITS | Encounter Summary ---
[place] [address] Care Team Providers Care Print Journalist Name Role Phone Debra Rocha MD Primary Care Provider [phone] Encounter Details Date Type Department Care Team (Late st Contact Info) Description 01/18/2014 Orders Only Obstetrics [place] [address] Hilary Dutton, RN (Primary Dx) Social History [...] incidental documented in this encounter Care Teams Print Journalist Relationship Specialty Start Date End Date Debra Rocha MD [facility] [address] [place] [address] PCP - General 01/18/14 documented as of this encounter
--- OUTSIDE RECORDS SUMMARY | 2024-02-28 01:59 | XMS_ITS | Encounter Summary ---
Author Organization [facility] Address [facility] [place] [address] Care Team Providers Care Administrative Office Clerk Name Role Phone Debra Rocha MD Primary Care Provider [phone] Reason for Visit * Consultation (Routine) - Closed Specialty Diagnoses / Procedures Referred By Jailene poon Referred To Contact Otolaryngology Diagnoses Tinnitus, left ear Debra Rocha MD [facility] [address] [facility] 1 [place] [address] [facility] Otolaryngology [address] [place] [phone] Referral ID Status Reason Start Date Expiration Date V isits Requested Visits Authorized [id number] Closed Consult, Test & Treat 08/07/2023 08/06/2024 1 1 Encounter Details Date Type Department Care Team (Latest Contact Info) Description 10/21/2023 10:20 AM EDT Office Visit [place] [address] Franco Bass III, MD [facility] [place] [address] Sensorineural hearing loss (SNHL) of [...] Visit: 10/21/2023 Location of Visit: Otolaryngology Clinic, [facility] Patient: Maris Owen ([id number]; 1980) Primary Care Provider: Debra Rocha MD [...] no known allergies. Social History: Lives in [place] [address]*, Tobacco:No Alcohol:Yes Other: Immunizations UTD. Family History: [...] tinnitus documented in this encounter Care Teams Administrative Office Clerk Relationship Specialty Start Date End Date Debra Rocha MD [address] [facility] 1 [place] [address] PCP - General 01/18/14 documented as of this encounter
--- OUTSIDE RECORDS SUMMARY | 2024-02-28 01:59 | XMS_ITS | Encounter Summary ---
Author Organization [facility] Address [address] [place] [address] Care Team Providers Care Student Life Coordinator Name Role Phone Unknown, Provider Primary Care Provider [phone] Debra Rocha MD Primary Care Provider [phone] Encounter Details Date Type Department Care Team (Latest Contact Info) Description 10/22/2020 Lab Requisition [facility] Pathology & Laboratory Medicine - [facility] [address] [place] [address] Debra Rocha MD [address] [place] [phone] Encounter for general adult medical examination [...] Risk types, PCR Negative Negative 10/31/2020 14:58 [facility] Comment:No E6 or E7 mRNA is detected from HPV types 16,18,31,33,35,39,45,51,52,56,58,59,66, and 68 by activities assistant mediated amplification. Papanicolaou smear specimen (specimen) CERVIX UTERI STRUCTURE / Unknown 10/21/2020 13:30 EDT 10/30/2020 15:00 EDT Debra Rocha MD MICROBIOLOGY - GENER AL ORDERABLES [facility] [address] [place] [address] * PAP TEST (10/21/2020 13:30 EDT) Specimens A. Cervix and/or Endocervix , ThinPrep Imaging System with Manual Evaluation 10/31/2020 14:58 [facility] Specimen Adequacy Satisfactory for Evaluation - transformation zone component present 10/31/2020 14:58 [facility] General Categorization Negative for intraepithelial lesion or malignancy 10/31/2020 14:58 [facility] Descriptive Diagnosis Reactive cellular changes associated with inflammation present (includes repair). 10/31/2020 14:58 [facility] Attestation By the signature below, the attending physician certifies that they have personally conducted a gross and/or microscopic examination of the described specimens and rendered or confirmed the above diagnosis. 10/31/2020 14:58 [facility] at 1458 Clinical History See below 11/01/19 14:58 [facility] HPV The result for the Human Papillomavirus (HPV) Detection-High Risk Types is Negative. No E6 or E7 mRNA is detected from HPV types 16,18,31,33,35,39 ,45,51,52,56,58,5 9,66, and 68 by activities assistant mediated amplification.Suzanne ting was performed on specimen [id number] and was resulted on 10/31/2020 1453 EDT by PITA, LAB INSTRUMENT RESULTS IN 10/31/2020 14:58 EDT [facility] Performing Lab [facility] 10/31/2020 14:58 EDT [facility] Scanned Images 10/31/2020 14:58 EDT [facility] Papanicolaou smear specimen (specimen) CERVIX UTERI STRUCTURE / Unknown 10/21/2020 13:30 EDT 10/22/2020 15:14 EDT Debra Rocha MD PATHOLOGY ORDERABLES Performing Organization Address City/State/[facility] Co de Phone Number [facility] [address] [place] [address] documented in this encounter Visit Diagnoses Diagnosis Encounter for general adult medical examination without abnormal findings Unspecified general medical examination Encounter for screening for malignant neoplasm of cervix Screening for malignant neoplasm of the cervix Encounter for screening for human papillomavirus (HPV) Special screening examination for human papillomavirus (HPV) documented in this encounter Care Teams Student Life Coordinator Relationship Specialty Start Date End Date Unknown, Provider, PCP - General 06/01/15 01/22/21 Debra Rocha MD [address] [place] [phone] PCP - General 01/23/21 documented as of this encounter
--- OUTSIDE RECORDS SUMMARY | 2024-02-28 01:59 | XMS_ITS | Encounter Summary ---
Author Organization [facility] Address [facility] [place] [address] Care Team Providers Care Knitting Demonstrator Name Role Phone Debra Rocha MD Primary Care Provider [phone] Encounter Details Date Type Department Care Team (Late st Contact Info) Description 10/21/2023 9:30 AM EDT Office Visit Audiology at [address] [address] Bereince Rodríguez, PhD [facility] [place] [address] Tinnitus of both ears; Sensorineural hearing loss [...] Bass III, MD Otolaryngology. [facility] Audiology commercial property manager participated in this session under direct supervision. I agree with her findings and recommendations. Please refer to the scanned audiogram listed under the Procedures tab in the EMR for findings, impressions and recommendations. Berenice Rodríguez, PhD [place] [address] ; documented in this encounter Plan of [...] ear documented in this encounter Care Teams Knitting Demonstrator Relationship Specialty Start Date End Date Debra Rocha MD [facility] [address] [place] [address] PCP - General 01/18/14 documented as of this encounter
--- OUTSIDE RECORDS SUMMARY | 2024-02-28 01:59 | XMS_ITS | Encounter Summary ---
Author Organization [facility] [place] [address] Care Team Providers Care Charge Operator Name Role Phone Debra Rocha MD Primary Care Provider [phone] Encounter Details Date Type Department Care Team [...] on filedocumented in this encounter Care Teams Charge Operator Relationship Specialty Start Date End Date Debra Rocha MD [address] [place] [address] PCP - General 01/18/14 documented as of this encounter
--- OUTSIDE RECORDS SUMMARY | 2024-02-28 01:59 | XMS_ITS | Encounter Summary ---
Author Organization [facility] Address [address] [place] [address] Care Team Providers Care Revenue Stamp Cutter Name Role Phone Unavailable Primary Care Provider Unavailabl e Encounter Details Date Type Department Care Team (Late st Contact Info) Description 07/02/2006 Results Only [facility] - Maple conversion [address] [place] [address] Lucy Singh, [facility] [address] [place] [address] [place] [address] Social History Tobacco Use Types [...] ? ARMANI OWEN ? Accession #: ? [id number] : ? 1980 (Age: 25) ??F ?Collect Date: ? 07/02/2006 Location: ? [facility] ? Receive Date: ? 07/05/2006 Provider: ?LUCY SINGH LOW PRESSURE BOILER TENDER Copy to: ? Specimen/Source: ?ThinPrep Pap Test, Cervix/Endocervix, processed on Geneix ThinPrep Imaging System, with manual evaluation Last [...] Report ALISSA OVIEDO 07/02/2006 07/05/2006 Lucy Singh LOW PRESSURE BOILER TENDER PATHOLOGY ORDERABLES ALISSA OVIEDO [address] [place] [address] documented in this encounter Visit Diagnoses Not on filedocumented in this encounter
--- OUTSIDE RECORDS SUMMARY | 2024-02-28 01:59 | XMS_ITS | Continuity of Care Document ---
Author Name [facility] Organization [facility] Care Team Providers Care Docking Pilot Name Role Phone [facility] Unavailable Unavailable Procedures Combined list of: 1) Procedures from Department of Veterans Affairs facilities going back up to thelast 18 months, not all VA non-surgical procedures are included; 2) All procedures from the Department of Defense facilities. Procedure Procedure Type Code Date Perfomer Comments [facility] DOPPLER ECHOCARDIOGRAPHY, , PULSED WAVE AND/OR CONTINUOUS WAVE WITH SPECTRAL DISPLAY; COMPLETE 10/12/2003 [facility] DOPPLER ECHOCARDIOGRAPHY, , PULSED WAVE AND/OR CONTINUOUS WAVE WITH SPECTRAL DISPLAY; COMPLETE 09/14/2003 [facility] ULTRASOUND, TRANSVAGINAL 08/08/2003 [facility] PHYS/OTH QUALIFIED HEALTH CONSTRUCTION TECHNICIAN QUALIFIED,EDUCATION,TRAIN,LIC ENSURE/REGULATION (WHEN APPLICABLE) EDUC SER RENDERED TO PATS IN A GRP SETTING (EG,,OBESITY,OR DIABETIC INSTRUCT) 07/12/2003 [facility] THERAPEUTIC PROCEDURE, 1 OR MORE AREAS, EACH 15 MINUTES; THERAPEUTIC EXERCISES TO DEVELOP STRENGTH AND ENDURANCE, RANGE OF MOTION AND FLEXIBILITY 01/24/2002 [facility] RANGE OF MOTION MEASUREMENTS AND REPORT (SEPARATE PROCEDURE); EACH EXTREMITY (EXCLUDING HAND) OR EACH TRUNK SECTION (SPINE) 01/10/2002 [facility] Social History Combined list of available smoking, tobacco, and other social history from Department of Defense and Veterans Affairs facilities. Social History Type Response Date Comment [facility] ignacio This section is an empty social history section. DoD
--- OUTSIDE RECORDS SUMMARY | 2024-02-28 01:59 | XMS_ITS | Encounter Summary ---
Author Organization [facility] Address [address] [place] [address] Care Team Providers Care Forge Tender Name Role Phone Unavailable Primary Care Provider Unavailabl e Encounter Details Date Type Department Care Team (Late st Contact Info) Description 08/11/2012 Results Only [facility] Laboratory Services - [facility] ([facility]) [address] [place], [place] [address] Logan Stafford NP [address] [place] [address] Social History Tobacco Use Types [...] ? ARMANI OWEN ? Accession #: ? [id number] : ? 1980 (Age: 31) ??F ?Collect Date: ? 08/11/2012 Location: ? [facility] ? Receive Date: ? 08/16/2012 Provider: ?LOGAN STAFFORD LOAN ADMINISTRATOR Copy to: ? Specimen/Source: ?Pap Test, Cervix, ThinPrep Imaging System with manual evaluation Last Menstrual Period: ? 07/26/12 Other: ? FAX - Request for Fax report: Dr. Wilde @ [phone] ? SPECIMEN ADEQUACY ? Satisfactory for Evaluation - transformation zone component present GENERAL CATEGORIZATION ? Negative for Intraepithelial Lesion or Malignancy ? Document reviewed and electronically signed by: ? KALLIE Nevarez(ASCP) ? Report Date: ??2012 13:37 End of Report ALISSA OVIEDO 08/11/2012 08/16/2012 Logan Stafford NP PATHOLOGY ORDERABLES ALISSA OVIEDO [address] [place] [address] documented in this encounter Visit Diagnoses Not on filedocumented in this encounter
--- OUTSIDE RECORDS SUMMARY | 2024-02-28 01:59 | XMS_ITS | Encounter Summary ---
Author Organization [facility] Address [facility] [place] [address] Care Team Providers Care Respiratory Care Faculty Name Role Phone Debra Rocha MD Primary Care Provider [phone] Reason for Visit * Reason Comments Ultrasound * Consultation (Routine) - Closed Specialty Diagnoses / Procedures Referred By Jailene poon Referred To Contact Genetics / Obstetrics and Gynecology Diagnoses MATERNAL AGE Procedures FULL SLOT Tiffanie Dimas, CNM [address] [place] [address] [facility] Fitness And Wellness Coordinator [address] [place] [address] Referral ID Status Reason Start Date Expiration Date Visits Re quested Visits Authorized [id number] Closed 08/11/2016 08/11/2017 2 2 Encounter Details Date Type Department Care Team (Latest Contact Info) Description 08/18/2016 11:30 AM EST Procedure visit Obstetrics [place] [address] Sly García MD [facility] [place] [address] AMA (advanced maternal age) primigravida [...] Cc: Tiffanie Dimas CNM [address] [place] [address], with copy of ultrasound report Cc: MD Jane [address] / [facility] [id number] documented in this encounter Plan of Treatment Not on file documented as of this encounter Visit Diagnoses Diagnosis AMA (advanced maternal age) primigravida 35+, first trimester documented in this encounter Care Teams Respiratory Care Faculty Relationship Specialty Start Date End Date Debra Rocha MD [address] [place] [address] PCP - General 01/18/14 documented as of this encounter
--- OUTSIDE RECORDS SUMMARY | 2024-02-28 01:59 | XMS_ITS | Encounter Summary ---
Author Organization [facility] [place] [address] Care Team Providers Care Wax Pattern Repairer Name Role Phone Debra Rocha MD Primary Care Provider [phone] Reason for Visit * Reason Comments Follow-up Encounter Details Date Type Department Care Team (Late st Contact Info) Description 05/20/2018 10:45 AM EDT Office Visit Dermatology at [facility] [address] [place] [address] Stephane Magana MD [address] [facility] [facility] [place] [address] Atopic dermatitis, unspecified type (Primary Dx) Social [...] the original note were not included. DERMATOLOGY [place], [place] FOLLOW-UP Chief Complaint: patch testing and [...] (given the size of the document) an [place] Contact Dermatitis Society (CAMP)-derived list of products [...] Stephane Magana MD FAAD Section of Dermatology [facility] documented in this encounter Plan of Treatment Not on file documented as of this encounter Visit Diagnoses Diagnosis Atopic dermatitis, unspecified type- Primary documented in this encounter Care Teams Wax Pattern Repairer Relationship Specialty Start Date End Date Debra Rocha MD [address] [place] [address] PCP - General 01/18/14 documented as of this encounter
--- OUTSIDE RECORDS SUMMARY | 2024-02-28 01:59 | XMS_ITS | Encounter Summary ---
Author Organization [facility] Address [address] [place] [address] Care Team Providers Care Assistant Chief Train Dispatcher Name Role Phone Unknown, Provider Primary Care Provider [phone] Debra Rocha MD Primary Care Provider [phone] Encounter Details Date Type Department Care Team (Late st Contact Info) Description 07/04/2019 Lab Requisition [facility] Pathology & Laboratory Medicine - [address] [address] Unknown, Provider, Social History Tobacco Use Types [...] 11 See Note ug/dL 07/04/2019 17:31 EST [facility] Comment: NOTE: Reference Ranges (from OCD IFU): Collected Before 10:00 AM: ??4 - 23 ug/dL Collected After 5:00 PM: ?2 - 14 ug/dL The results of this assay can be falsely elevated due to the consumption of Biotin. Blood VENOUS BLOOD / Unknown 07/04/2019 8:17 EST 07/04/2019 16:30 EST Provider Unknown CHEMISTRY & BLOOD GA S ORDERABLES [facility] [address] [place] [address] documented in this encounter Visit Diagnoses Not on filedocumented in this encounter Care Teams Assistant Chief Train Dispatcher Relationship Specialty Start Date End Date Unknown, Provider, PCP - General 06/01/15 01/22/21 Debra Rocha MD [address] [place] [phone] PCP - General 01/23/21 documented as of this encounter
--- OUTSIDE RECORDS SUMMARY | 2024-02-28 01:59 | XMS_ITS | Encounter Summary ---
Author Organization [facility] Address [address] [place] [address] Care Team Providers Care Tower Equipment Installer Name Role Phone Unavailable Primary Care Provider Unavailabl e Encounter Details Date Type Department Care Team (Late st Contact Info) Description 10/24/2010 Results Only [facility] Laboratory Services - [facility] ([facility]) [address] [place] [address] Debra Vigil MD [address] [place] [address] Social History Tobacco Use Types [...] ? ARMANI OWEN ? Accession #: ? [id number] ? : ? 1980 (Age: 30) ??F [...] reviewed and electronically signed by: ? Lyssa Calera, [place](ASCP) ? Report Date: ??10/30/2010 13:08 ? End of Report ? ALISSA OVIEDO 10/24/2010 10/28/2010 Debra Vigil MD PATHOLOGY ORDERABLES Performing Organization Address City/State/[facility] Co de Phone Number ALISSA OVIEDO [address] [place] [address] documented in this encounter Visit Diagnoses Not on filedocumented in this encounter
--- OUTSIDE RECORDS SUMMARY | 2024-02-28 01:59 | XMS_ITS | Clinical Summary ---
Author Organization [facility] Address [address] [place] [address] Care Team Providers Care Bottle Gauger Name Role Phone Debra Rocha MD Primary Care Provider [phone] Social History Tobacco Use Types Packs/Day Years [...] COVID-19 Vaccine ( season) 2023 Care Teams Bottle Gauger Relationship Specialty Start Date End Date Debra Rocha MD [address] [facility] [address] [place] [address] PCP - General 01/23/21
--- OUTSIDE RECORDS SUMMARY | 2024-02-28 01:59 | XMS_ITS | Encounter Summary ---
Author Organization [facility] Address [facility] [place] [address] Care Team Providers Care Amalgamator Name Role Phone Debra Rocha MD Primary Care Provider [phone] Reason for Visit * Reason Comments Advice Only Encounter Details Date Type Department Care Team (Late st Contact Info) Description 01/23/2014 2:45 PM EDT Office Visit Obstetrics [place] [address] Gricel Ortiz MD [facility] DR OBSTETRICS [place] [address] History of premature rupture of membranes (PROM) [...] 39w2d 3.856kg(8lb8oz) M 4 PAR 05/05 34w0d 2.155kg(5cf81to) F Comments: 34 +0/7 wks - PPROM, [...] cervical length. Recommend patient start IM progresterone (67-htxbs-sotll xyprogesterone caproate (17OHPC)), 250mg IM once weekly, [...] Primary documented in this encounter Care Teams Amalgamator Relationship Specialty Start Date End Date Debra Rocha MD [address] [place] [address] PCP - General 01/18/14 documented as of this encounter
--- OUTSIDE RECORDS SUMMARY | 2024-02-28 01:59 | XMS_ITS | Encounter Summary ---
Author Organization [facility] [place] [address] Care Team Providers Care Factorer Name Role Phone Debra Rocha MD Primary Care Provider [phone] Encounter Details Date Type Department Care Team (Late st Contact Info) Description 06/29/2018 Telephone Dermatology at [facility] [address] [place] [address] Stephane Magana MD [address] [facility] [place] [address] Social History Tobacco Use Types Packs/Day Years [...] Notes * Telephone Encounter - Karl Urban, CORPORATE RESPONSIBILITY OFFICER - 06/29/2018 1:40 PM EST Spoke with [...] on filedocumented in this encounter Care Teams Factorer Relationship Specialty Start Date End Date Debra Rocha MD [address] [place] [address] PCP - General 01/18/14 documented as of this encounter
--- OUTSIDE RECORDS SUMMARY | 2024-02-28 01:59 | XMS_ITS | Encounter Summary ---
Author Organization [facility] Address [facility] [place] [address] Care Team Providers Care Business Management Specialist Name Role Phone Debra Rocha MD Primary Care Provider [phone] Encounter Details Date Type Department Care Team (Late st Contact Info) Description 01/23/2014 Orders Only Obstetrics [place] [address] Gricel Ortiz MD [facility] [address] OBSTETRICS [place] [address] History of premature delivery, second trimester (Primary [...] Primary documented in this encounter Care Teams Business Management Specialist Relationship Specialty Start Date End Date Debra Rocha MD [facility] [address] [place], [place] [id number] PCP - General 01/18/14 documented as of this encounter
--- OUTSIDE RECORDS SUMMARY | 2024-02-28 01:59 | XMS_ITS | Encounter Summary ---
Author Organization [facility] Address [address] [place] [address] Care Team Providers Care Oil Transport Driver Name Role Phone Unknown, Provider Primary Care Provider Encounter Details Date Type Department Care Team (Late st Contact Info) Description 06/25/2016 Results Only [facility] [phone] Logan Malone CNM Social History Tobacco Use [...] ? ARMANI OWEN ? Accession #: ? [id number] ? : ? 1980 (Age: 35) ??F [...] and electronically signed by: ? Nanci Miller, [facility](ASCP) ? Report ??Date: 07/01/2016 09:33 HPV with Pap Test ? Date Ordered: ? 07/01/2016 ? Status: ?? Signed Out ?Date Complete: ? 07/02/2016 ? By: ??System Interface ? Date Reported: ? 07/02/2016 ? Interpretation RESULT: Negative for HPV. No E6 or E7 mRNA is detected from HPV types 16,18,31,33,35, 39,45,51,52,56,58, 59,66, and 68 by sales trainer mediated amplification. Comments Document reviewed and electronically signed by: ? System Interface ? Report date: 07/02/2016 By the signature above, the attending physician certifies that he/she has personally conducted a gross and/or microscopic examination of the described specimens and rendered or confirmed the above diagnosis. End of Report [facility] 06/25/2016 06/26/2016 Logan Malone CNM PATHOLOGY ORDERABLES [facility] [address] [place] [address] documented in this encounter Visit Diagnoses Not on filedocumented in this encounter Care Teams Oil Transport Driver Relationship Specialty Start Date End Date Unknown, Provider, PCP - General 06/01/15 01/22/21 documented as of this encounter
--- OUTSIDE RECORDS SUMMARY | 2024-02-28 01:59 | XMS_ITS | Encounter Summary ---
Author Organization [facility] Address [address] [place] [address] Care Team Providers Care Circuit Court Magistrate Name Role Phone Debra Rocha MD Primary Care Provider [phone] Encounter Details Date Type Department Care Team (Late st Contact Info) Description 02/19/2021 Lab Requisition [facility] Pathology & Laboratory Medicine - [address] [address] Emeterio Kim, DNP [address] [place] [address] Encounter for other general examination [...] management options, if applicable. 02/21/2021 10:33 EDT [facility] Final Diagnosis A. SKIN OF BUTTOCKS, RIGHT, PUNCH BIOPSY: - Subacute spongiotic dermatitis. See microscopic and comment. 02/21/2021 10:33 [facility] Diagnosis Comment The overall findings favor an eczematous dermatitis. Given the scattered dyskeratosis, irritant dermatitis would also be a consideration. 02/21/2021 10:33 [facility] Attestation By the signature below, the attending physician certifies that they have 1) personally conducted a gross and/or microscopic examination of the described specimen(s), and/or personally interpreted the results of laboratory testing of the described specimen(s), and 2) personally rendered or confirmed the above diagnosis. 02/21/2021 10:33 [facility] at [address] Microscopic Description There [...] no evidence of fungal organisms 02/21/2021 10:33 [facility] Clinical History Spreading plaque on right buttocks; punch biopsy completed 02/21/2021 10:33 [facility] Gross Description A. Received in formalin labelled with proper patient identification (initials B, J) and right buttocks is a punch biopsy of granular, hayden-white skin (0.5 cm in diameter by 0.2 cm in depth). The specimen is submitted intact in A1. ARMEN SARMIENTO(ASCP) 02/19/2021 16:21 02/21/2021 10:33 [facility] Performing Lab [facility] 02/21/2021 10:33 [facility] Scanned Images 02/21/2021 10:33 [facility] Tissue TISSUE SPECIMEN FROM SKIN / Unknown 02/18/2021 15:13 EDT 02/19/2021 15:42 EDT Emeterio Ricks [facility] PATHOLOGY ORDERAB LES [facility] [address] [place] [address] documented in this encounter Visit Diagnoses Diagnosis Encounter for other general examination documented in this encounter Care Teams Circuit Court Magistrate Relationship Specialty Start Date End Date Debra Rocha MD [address] [place] [address] PCP - General 01/23/21 documented as of this encounter
--- OUTSIDE RECORDS SUMMARY | 2024-02-28 01:59 | XMS_ITS | Encounter Summary ---
Author Organization [facility] Address [facility] [place] [address] Care Team Providers Care Work Station Support Specialist Name Role Phone Debra Rocha MD Primary Care Provider [phone] Reason for Visit * Reason Comments Advanced Maternal Age * Consultation (Routine) - Closed Specialty Diagnoses / Procedures Referred By Jailene poon Referred To Contact Genetics / Obstetrics and Gynecology Diagnoses MATERNAL AGE Procedures FULL SLOT Tiffanie Dimas, RACHELL [address] [place] [address] [facility] Community Health Navigator [address] [place] [address] Referral ID Status Reason Start Date Expiration Date Visits Re quested Visits Authorized [id number] Closed 08/11/2016 08/11/2017 2 2 Encounter Details Date Type Department Care Team (Late st Contact Info) Description 08/18/2016 10:15 AM EST Office Visit Obstetrics [place] [address] Keyonna Gonzalez, [facility] OBSTETRICS [place] [address] AMA (advanced maternal age) primigravida [...] [facility] Chief Complaint Patient presents with ??? Advanced [...] Maris's electronic medical record. Maris is of German, Pakistani, Lithuanian, [place] dioni ancestry. Martin is of , [place] ancestry. Consanguinity is denied. Screening Results Test [...] counseling documented in this encounter Care Teams Work Station Support Specialist Relationship Specialty Start Date End Date Debra Rocha MD [facility] [address] [facility] [address] [place] [address] PCP - General 01/18/14 documented as of this encounter
--- OUTSIDE RECORDS SUMMARY | 2024-02-28 01:59 | XMS_ITS | Encounter Summary ---
Author Organization [facility] [place] [address] Care Team Providers Care Insurance Solicitor Name Role Phone Debra Rocha MD Primary Care Provider [phone] Reason for Referral * Consultation (Routine) - Closed Specialty Diagnoses / Procedures Referred By Jailene poon Referred To Contact Otolaryngology Diagnoses Tinnitus, left ear Debra Rocha MD [address] [place] [address] [facility] Otolaryngology [address] [place] [phone] Referral ID Status Reason Start Date Expiration Date V isits Requested Visits Authorized [id number] Closed Consult, Test & Treat 08/07/2023 08/06/2024 1 1 Encounter Details Date Type Department Care Team (Late st Contact Info) Description 08/07/2023 Transcribe Orders [facility] Incoming Referrals [phone] Debra Rocha MD [address] [place] [address] Tinnitus, left ear Social History [...] ear documented in this encounter Care Teams Insurance Solicitor Relationship Specialty Start Date End Date Debra Rocha MD [address] [place] [address] PCP - General 01/18/14 documented as of this encounter
--- OUTSIDE RECORDS SUMMARY | 2024-02-28 01:59 | XMS_ITS | Encounter Summary ---
Author Organization [facility] [place] [address] Care Team Providers Care Chlorinator Name Role Phone Debra Rocha MD Primary Care Provider [phone] Encounter Details Date Type Department Care Team (Latest Contact Info) Description 01/23/2014 2:08 PM EDT - 01/23/2014 11:59 PM EDT Hospital En[place] [address] History of premature delivery, second trimester Social [...] 01/23/2014 03:27 pm) Patient Info ID: ? [id number] ? : ??[birth year] (33 yrs) Name: ? ARMANI RABAGO ? Visit Date: 01/23/2014 02:48 pm Performed By Performed By: ?Lucy Corbin RDMS Attending: ? Gricel Ortiz MD Referred By: ? GRICEL ORTIZ MD Service(s) Provided [facility] - Targeted Morphology - Genetics - ? [id number] UOBTV - Viability - Cervical Length - Transvaginal - ??[id number] Indications r/o anomalies; Cervical Length, from ACC. [id number] per Gricel Ortiz MD. Evaluation Num Of [...] Aortic Arch: ?Visualized Ductal Arch: ?Visualized Cardiac [place]: ? Visualized Diaphragm: ?Visualized Abdomen Ventral Wall: [...] Final 01/23/2014 03:27 pm) Patient Info ID: [id number] : [birth year] (33 yrs) Name: ARMANI RABAGO Visit Date: 01/23/2014 02:48 pm Performed By Performed By: Lucy Corbin RDMS Attending: Gricel Ortiz MD Referred By: GRICEL ORTIZ MD Service(s) Provided [facility] - Targeted Morphology - Genetics - [address] [id number] UOBTV - Viability - Cervical Length - Transvaginal - 25[address] [id number] Indications r/o anomalies; Cervical Length, from ACC. [id number] per Gricel Ortiz MD. Evaluation Num Of [...] Aortic Arch: Visualized Ductal Arch: Visualized Cardiac [place]: Visualized Diaphragm: Visualized Abdomen Ventral Wall: Visualized [...] trimester documented in this encounter Care Teams Chlorinator Relationship Specialty Start Date End Date Debra Rocha MD [address] [place] [address] PCP - General 01/18/14 documented as of this encounter
--- OUTSIDE RECORDS SUMMARY | 2024-02-28 01:59 | XMS_ITS | Encounter Summary ---
Author Organization [facility] [place] [address] Care Team Providers Care Client Care Consultant Name Role Phone Debra Rocha MD Primary Care Provider [phone] Encounter Details Date Type Department Care Team (Late st Contact Info) Description 05/18/2018 1:45 PM EDT Office Visit Dermatology at [facility] [address] [place] [address] Stephane Magana MD [address] [facility] [address] Dermatitis; Impetigo Social History Tobacco Use Types [...] Stephane Magana MD FAAD Section of Dermatology [facility] documented in this encounter Plan of Treatment Not on file documented as of this encounter Visit Diagnoses Diagnosis Dermatitis Contact dermatitis and other eczema, due to unspecified cause Impetigo documented in this encounter Care Teams Client Care Consultant Relationship Specialty Start Date End Date Debra Rocha MD [facility] [address] [facility] 1 [place] [address] PCP - General 01/18/14 documented as of this encounter
--- OUTSIDE RECORDS SUMMARY | 2024-02-28 01:59 | XMS_ITS | Referral Summary ---
Author Organization [facility] Address [address] [place] [address] Care Team Providers Care Hook Loader Name Role Phone Debra Rocha MD Primary Care Provider [phone] Social History Tobacco Use Types Packs/Day Years Used Date Smoking Tobacco: Never Assessed Sex and Gender Information Value Date Recorded Sex Assigned at Not on file Gender Identity Not on file Sexual Orientation Not on file Plan of Treatment Not on file Care Teams Hook Loader Relationship Specialty Start Date End Date Debra Rocha MD [address] [place] [phone] [facility] - General 01/23/21
--- OUTSIDE RECORDS SUMMARY | 2024-02-28 01:59 | XMS_ITS | Encounter Summary ---
[facility] Address [facility] [place] [address] Care Team Providers Care [employer] Reading Teacher Name Role Phone Debra Rocha MD Primary Care Provider [phone] Encounter Details Date Type Department Care Team (Late st Contact Info) Description 08/06/2016 Orders Only Obstetrics [place] [address] Gricel Ortiz MD [facility] OBSTETRICS [place] [address] Maternal age > 35, multigravida, unspecified trimester [...] 01:14 pm) PATIENT INFO: ID #: ? [id number] ?: ??[birth year] (35 yrs) Name: ? ARMANI Heart LUKE ?Visit Date: 08/18/2016 11:04 am PERFORMED BY: Performed By: ? Jeanne Oconnor RDMS Attending: ?Sly García MD ??Sally Referred By: ?HARVINDER CHE [facility] Location: ? [place] SERVICE(S) PROVIDED: ??[facility] - Detailed Morphology - [id number] ? [id number] INDICATIONS: ??MATERNAL AGE, ANEA LELONG OB HISTORY: [...] Outflow Tract: ?Visualized Aortic Arch: ?Visualized Cardiac Amboy: ? Visualized 3 Vessel View: ?Visualized Diaphragm: [...] 08/18/2016 01:14 pm) PATIENT INFO: ID #: [id number] : [birth year] (35 yrs) Name: ARMANI OWEN Visit Date: 08/18/2016 11:04 am PERFORMED BY: Performed By: Jeanne Oconnor RDMS Attending: Sly García MD Referred By: HARVINDER RICARDO Location: [place] SERVICE(S) PROVIDED: [facility] - Detailed Morphology - [id number] INDICATIONS: MATERNAL AGE, ANEA LELONG OB HISTORY: [...] Outflow Tract: Visualized Aortic Arch: Visualized Cardiac Amboy: Visualized 3 Vessel View: Visualized Diaphragm: Visualized [...] trimester documented in this encounter Care Teams [employer] Reading Teacher Relationship Specialty Start Date End Date Debra Rocha MD [facility] [address] [place] [address] PCP - General 01/18/14 documented as of this encounter
--- OUTSIDE RECORDS SUMMARY | 2024-02-28 01:59 | XMS_ITS | Encounter Summary ---
Author Organization [facility] Address [address] [place] [address] Care Team Providers Care Legal Cashier Name Role Phone Unavailable Primary Care Provider Unavailabl e Encounter Details Date Type Department Care Team (Late st Contact Info) Description 06/01/2005 Results Only [facility] - Maple conversion [address] [place] [address] Lucy Singh, [facility] [address] [place] [id number] Social History Tobacco Use Types Packs/Day [...] ? ARMANI OWEN ? Accession #: ? [id number] : ? 1980 (Age: 24) ??F ?Collect Date: ? 06/01/2005 Location: ? [facility] ? Receive Date: ? 06/03/2005 Provider: ?LUCY SINGH KILN DOOR REPAIRER Copy to: ? Specimen/Source: ?ThinPrep Pap Test, Cervix/Endocervix, processed on Outcome Referrals ThinPrep Imaging System, with manual evaluation Last [...] Report ALISSA OVIEDO 06/01/2005 06/03/2005 Lucy Singh KILN DOOR REPAIRER PATHOLOGY ORDERABLES Performing Organization Address City/State/[facility] Co de Phone Number ALISSA OVIEDO [address] [place] [address] documented in this encounter Visit Diagnoses Not on filedocumented in this encounter
--- OUTSIDE RECORDS SUMMARY | 2024-02-28 01:59 | XMS_ITS | Encounter Summary ---
[place] [address] Care Team Providers Care Clinical Biochemical Geneticist Name Role Phone Debra Rocha MD Primary Care Provider [phone] Reason for Visit * Reason Comments Dermatitis Encounter Details Date Type Department Care Team (Late st Contact Info) Description 12/24/2017 10:45 AM EDT Office Visit Internal Medicine at [address] [id number] Stephane Magana MD [address] [facility] [place] [address] Dermatitis (Primary Dx); Eczema, unspecified type Social [...] note were not included. DEPARTMENT DERMATOLOGY AT [facility] Dermatology [facility] [address] [facility] [phone] FOLLOW-UP Patient is established to this clinic, [...] pursue narrowband UVB as she lives near [place], [place]; she was told that she can only receive psoralen and [facility] in [place]. ?? Start betamethasone lotion BID instead of [...] Stephane Magana MD FAAD Section of Dermatology [facility] * Dory Mcgowan - 12/24/2017 10:45 AM EDT 01-03-18 Called patient to schedule patch testing but she declined to schedule at this time. Danyellskylar call when she has finished breast feeding to schedule appointment. documented in this encounter Plan of Treatment Not on file documented as of this encounter Visit Diagnoses Diagnosis Dermatitis- Primary Contact dermatitis and other eczema, due to unspecified cause Eczema, unspecified type documented in this encounter Care Teams Clinical Biochemical Geneticist Relationship Specialty Start Date End Date Debra Rocha MD [facility] [address] [facility] [address] [place] [address] PCP - General 01/18/14 documented as of this encounter
== END ==
PROVIDERS: PCP Family Medicine; Visit Provider Family Medicine
DX: Z12.39 Encounter for other screening for malignant neoplasm of breast (principal); Z12.31 Encounter for screening mammogram for malignant neoplasm of breast; R92.333 Mammographic heterogeneous density, bilateral breasts
CPT/HCPCS: 77063; 77067